=== PATIENT | female | born 1970 | race Caucasian/White ===

== ENCOUNTER 2019-12-23 09:46 | Outpatient (REF) | payer BC, SELFPAY ==
--- NOTE | 2019-12-23 09:48 | XR_ITS ---
EXAMINATION: XR ANKLE, LEFT CLINICAL INFORMATION: Ankle fracture COMPARISON: Previous x-rays most recent 11/14/2019 TECHNIQUE: AP, lateral, and mortise views of the left ankle. FINDINGS: There is an oblique fracture of the distal fibular shaft. There is a 2 mm lateral displacement of the lateral malleolus with respect to the proximal shaft. Fracture line is still seen. No bony callus formation is seen. There may be widening of the medial ankle mortise. There are degenerative changes at the talar navicular joint. There is an ankle joint effusion. XR/XR ankle LT min 3V IMPRESSION: No change in the minimally displaced distal fibular shaft/lateral malleolar fracture. Question widening of the medial ankle mortise. Ankle joint effusion.
== END 2019-12-23 09:47 | disposition home or self-care (01) ==
LOC: HO.HOSX 09:46
PROVIDERS: PCP Nurse Practitioner Family; Referring Provider Nurse Practitioner Family; Visit Provider Orthopaedic Surgery
DX: S82.62XD Displaced fracture of lateral malleolus of left fibula, subsequent encounter for closed fracture with routine healing (principal); Z79.899 Other long term (current) drug therapy
CPT/HCPCS: 73610; J1100

== ENCOUNTER 2020-01-09 12:24 | Outpatient (REF) | payer BC, SELFPAY ==
[2020-01-09 15:17] LABS: Influenza A PCR NEGATIVE (Negative); Influenza B PCR NEGATIVE (Negative); Resp Syncy Virus RNA Qual PCR NEGATIVE (Negative); SARS COV2 PCR INHOUSE NEGATIVE (Negative)
== END 2020-01-09 12:25 | disposition home or self-care (01) ==
LOC: HO.LAB 12:24
PROVIDERS: Visit Provider Nurse Practitioner Family
DX: R05 Cough (principal); J02.9 Acute pharyngitis, unspecified
CPT/HCPCS: 0241U; 87071; 87880

== ENCOUNTER 2022-05-04 10:23 | Outpatient (REF) | payer BC, SELFPAY ==
--- NOTE | ~2022-05-04 | XR_ITS ---
EXAMINATION: XR ANKLE, LEFT CLINICAL INFORMATION: Sprain. COMPARISON: Left ankle 12/23/2019 TECHNIQUE: AP, lateral, and mortise views of the left ankle. FINDINGS: There is a left malleolar fracture stabilized with metallic plate and screws in satisfactory alignment no hardware loosening seen. There is no new fracture. No soft tissue swelling. Ankle mortise and subtalar joints are normal. XR/XR ankle LT min 3V IMPRESSION: Healing left malleolar fracture with metallic plate and screws in satisfactory alignment. No hardware loosening seen.
== END 2022-05-04 10:24 | disposition home or self-care (01) ==
LOC: HO.HMGCX 10:23
PROVIDERS: Visit Provider Internal Medicine
DX: S93.402A Sprain of unspecified ligament of left ankle, initial encounter (principal)
CPT/HCPCS: 73610

== ENCOUNTER 2022-09-01 11:36 | Outpatient (AMB) | payer BC, SELFPAY ==
--- NOTE | 2022-09-01 13:11 | AM.OFFWIN_ITS ---
Intake Vital Signs 09/01/22 13:12 09/01/22 13:31 09/01/22 13:36 Height 5 ft 8 in BP 120/70 Blood Pressure Location Lt brachial Position Sitting Pulse 70 Pulse Source Pulse Oximeter Temp 96.5 F L Temp Source Temporal Artery Scan Pulse Oximetry (%) 88 L 90 L 93 Oxygen Delivery Method Room Air Room Air Room Air Intake Visit Reasons: EP fell on lt side,rib pain Intake Note: Pt is here c/o left rib pain. Pt states she fell after mowing her lawn yesterday afternoon. Patient Tobacco Use Status: Current everyday Tobacco user Allergies No Known Allergies Allergy (Verified 09/01/22 13:12) Do you need a note to return to daycare/school/sports/work: No HPI HPI Comments History of Present Illness Details 1413 this is a 51-year-old female current daily smoker, history of pneumothorax presenting to the clinic for sick visit, patient reports that yesterday after she finished mowing her lawn she tripped on a dog toy, falling, landing on her left side, since then has been having left-sided rib pain. Pain is worse with breathing, laughing, movement better at rest. Patient reports she feels like she can not take a deep breath. She tells me when she fell she did not hit her head, no loss of consciousness, not on blood thinners. Denies any other injuries to head, neck, chest, abdomen and pelvis. Patient reports pain is so severe she is unable to sleep and is having difficulties with ambulation. Upon history taking patient speaking in short sentences, appears to be having difficulties with breathing. She does endorse shortness of breath worse with movement better at rest.Patient denies chest pain, nausea, vomiting, abdominal pain, headache, vision changes, dizziness and weakness. Physical examination significant for patient's vital signs with hypoxia, tachypnea, patient in mild respiratory distress. Patient appears uncomfortable. There is tenderness to palpation to the lateral aspect of left 4th through 7th ribs. Mid axillary line. Normal right ribs. No overlying skin changes. No signs of flail chest. Breath sounds diminished bilaterally However present. Concerns that patient may have multiple rib fractures, no signs of flail chest pneumothorax on my exam. Hypoxia likely secondary to poor work of breathing secondary to pain, patient evidently shallow breathing. I explained to patient that due to her oxygen saturation and mechanism of injury should go to the emergency department for further evaluation and treatment, I explained to her we can order an x-ray here however a lot of rib fractures can be missed on x-ray and the best test to obtain accurate result is a CT scan. I also explained to her that I am concerned that she may have a pneumothorax, she tells me she has had 1 before and this does not feel like a. She tells me she feels fine to go home the only thing that is bothering her is pain, she says the shortness of breath this tolerable. I did go over potential risks of leaving and not taking an ambulance or going straight to the emergency department, including , respiratory distress, additional pain and or suffering, permanent disability or disfigurement, patient verbalizes understanding and states she is willing to take wrist. She is unwilling to take an ambulance, unwilling to go to the emergency department at this time. She tells me she will go home and speak to her in june be she will go later. Patient alert and oriented x4 and she does verbalize all the risks of leaving including . Nurse Shagufta at the bedside to explain this to patient as well, patient is saturating 94% when leaving. She did improved to 98% on 2 L however patient does not use oxygen at home. [place] that she will not go at this time. At time that patient left the office she was saturating 94% on room air, appeared uncomfortable Toradol was given for pain. Patient states she will go home and speak to . I explained her she should call 911 immediately or report to an emergency department at this time. I did have her sign a form against medical advice for leaving. To note this case was discussed with my attending Dr.Viswanatha WILSON who reccomends patient to go to ED for evaluation however since patient is refusing agrees with having patient leave AMA with strict emphasis on potential risks including . [facility] Medical History Collapsed lung (~2017) Effusion, right knee Fracture of left ankle, lateral malleolus Surgical History History of breast biopsy (~2006) Family History Father No problems noted. Mother No problems noted. 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 Review of Systems Const Details: Constitutional : No Weight loss, No Fever, No Chills, No Fatigue, No Malaise ENT/Mouth : No sore throat, No Rhinorrhea Eyes: No Eye Pain, No Swelling, No Redness Cardiovascular : No Chest Pain, + SOB, No Dyspnea on Exertion, No Orthopnea, No Edema, No Palpitations Respiratory : No Cough, No Sputum, No Wheezing Gastrointestinal : No Nausea, No Vomiting, No Diarrhea, No Constipation, No abdominal Pain, No Hematochezia, No Melena Genitourinary : No Dysuria, No Urinary Frequency, No Hematuria, Musculoskeletal : No joint pain, No Myalgias, No Joint Swelling, + rib pain Skin : No Skin Lesions, No rash Neuro : No Weakness, No Numbness, No Dizziness, No Headache Psych : No Anxiety/Panic, No Depression All other systems reviewed and are negative All systems reviewed & are unremarkable except as noted in HPI and below Physical Exam Vital Signs: Last Vital Signs Temp 96.5 F L 09/01/22 13:12 Pulse 70 09/01/22 13:12 BP 120/70 09/01/22 13:12 Pulse Ox 93 09/01/22 13:36 Oxygen Delivery Method Room Air 09/01/22 13:36 vss Appearance: Alert.? Oriented X3.? No acute distress.? Head: Normocephalic, atraumatic, no step-offs or deformities Eyes: Pupils equal, round and reactive to light.? ENT: Pharynx normal.? Neck: Normal inspection.? Neck supple.? CVS: Normal heart rate and rhythm.? Pulses normal.? Respiratory: No respiratory distress.? + There is tenderness to palpation to the lateral aspect of left 4th through 7th ribs. Mid axillary line. Normal right ribs. No overlying skin changes. No signs of flail chest. Breath sounds diminished bilaterally However present. Abdomen: Soft and nontender.? Skin: Skin warm and dry.? Normal skin color.? Normal skin turgor.? Extremities: No lower extremity edema.? No calf ttp. 5/5 strength to bilateral upper and lower extremities Back: No midline tenderness, no C-spine tenderness, full range of motion, no CVA tenderness bilaterally Neuro: Oriented X 3.? No motor deficit.? No sensory deficit. CN 2-12 intact Office Meds ketorolac Performing Provider: KAY Smith Administered by: Shagufta Diana RN on 09/01/22 14:04 Dose Route Admin Location Lot Number Expiration Date [employer] Super[employer] 30 mg IM Left gluteus [id number] 05/20/23 38620-453-02 [employer] Comments: Instructed pt to refrain from OTC NSAIDs 8-10 hours after receiving the injection and while on prescription Torodal. (Inadvertently took a 60mg vial which will match the lot# and administered 1ml after drawing up med.) Assessment & Plan Assessment & Plan (1) Shortness of breath: Code(s): R06.02 - Shortness of breath (2) Rib pain on left side: Code(s): R07.81 - Pleurodynia (3) Left against medical advice: Code(s): Z53.29 - Procedure and treatment not carried out because of patient's decision for other reasons (4) Fall: Code(s): W19.XXXA - Unspecified fall, initial encounter Plan Patient leaving against medical advice, AMA form was signed by patient and nurse. Nurse also tried to convince patient to go to the hospital for treatment patient refusing. Advised her to call 911 with new or worsening symptoms or report to an emergency department at this time. Patient alert and oriented x4 at time of leaving. 94% on room air. Orders: Orders AMB Ketorolac Injection Today R07.81 - Pleurodynia Coding Level of Care Code Est Pt Level 3 (22030) Diagnoses Shortness of breath R06.02 Rib pain on left side R07.81 Left against medical advice Z53.29 Fall W19.XXXA
[2022-09-01 13:12] VITALS: BP 120/70; PULSE 70; TEMP 35.8; O2SAT 88
[2022-09-01 13:31] VITALS: O2SAT 90
[2022-09-01 13:36] VITALS: O2SAT 93
== END 2022-09-01 16:36 | disposition home or self-care (01) ==
PROVIDERS: Visit Provider Physician Assistant
DX: R06.02 Shortness of breath (principal); R07.81 Pleurodynia; Z53.29 Procedure and treatment not carried out because of patient's decision for other reasons; W19.XXXA Unspecified fall, initial encounter
CPT/HCPCS: 96372; 99213; J1885

== ENCOUNTER 2022-09-01 13:18 | Outpatient (REF) | payer BC, SELFPAY ==
--- NOTE | ~2022-09-01 | XR_ITS ---
EXAMINATION: XR RIBS, RIGHT, PA CHEST CLINICAL INFORMATION: Rib pain. COMPARISON: None available. TECHNIQUE: 3 views of the right ribs were obtained along with a PA view of the chest. A skin marker overlies the inferior left ribs. FINDINGS: Lungs are clear. No consolidation, pneumothorax, or pleural effusion. The cardiomediastinal silhouette and pulmonary vasculature are normal. Osseous structures are unremarkable. Ribs are intact. No fractures are identified. XR/XR ribs LT min 3V w CXR1V IMPRESSION: Unremarkable examination.
== END 2022-09-01 13:19 | disposition home or self-care (01) ==
LOC: HO.HMGCX 13:18
PROVIDERS: Visit Provider Physician Assistant
DX: R06.02 Shortness of breath (principal); R07.81 Pleurodynia
CPT/HCPCS: 71101

== ENCOUNTER 2022-09-05 11:54 | Emergency (ER) | payer BC, SELFPAY | END 2022-09-05 13:36 | disposition left against medical advice (07) | PROVIDERS: Emergency Provider Emergency Medicine | DX: R06.00 Dyspnea, unspecified (principal); Z91.81 History of falling ==

== ENCOUNTER 2022-10-04 10:27 | Outpatient (AMB) | payer BC, SELFPAY ==
--- NOTE | 2022-10-04 10:29 | AM.OFFWIN_ITS ---
Intake Vital Signs 10/04/22 10:31 Weight 153 lb BP 130/90 H Blood Pressure Location Lt brachial Position Sitting Pulse 91 Pulse Source Pulse Oximeter Temp 98.3 F Temp Source Oral Pulse Oximetry (%) 96 Oxygen Delivery Method Room Air Intake Visit Reasons: EP, Vomiting,Nausea, Cold sweats Intake Note: Patient here because she hasn't been able to tolerate any food, nausea,vomiting and cold sweats which all started yesterday. Patient Tobacco Use Status: Current everyday Tobacco user Allergies No Known Allergies Allergy (Verified 10/05/22 18:32) Medication List - Last Reconciled 10/05/22 by Taqueria Morales MD albuterol sulfate 90 mcg/actuation 2 puffs inhalation Q4-6H PRN albuterol sulfate 1.25 mg (3 mL) inhalation QID PRN albuterol sulfate 90 mcg/actuation inhalation bupropion HCl mg PO bupropion HCl mg PO bupropion HCl (Wellbutrin SR) PO ibuprofen mg PO leg brace (Ankle Brace) STABILIZING PRO ANKLE, BLK, L leg brace STABILIZING PRO ANKLE, BLK, L S82.62XA lorazepam 0.5 mg PO DAILY PRN pantoprazole 40 mg PO DAILY sertraline 100 mg PO DAILY Do you need a note to return to daycare/school/sports/work: Yes HPI EP, Vomiting,Nausea, Cold sweats HPI Details 51-year-old female presents to the office for a sick visit. Patient is not been feeling well for a few days. She is complaining of nausea, vomiting and generally feeling tired. No family members sick. No recent travel. [facility] Medical History Collapsed lung (~2018) Effusion, right knee Fracture of left ankle, lateral malleolus Surgical History History of breast biopsy (~2006) Family History Father No problems noted. Mother No problems noted. 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 Physical Exam Vital Signs: Last Vital Signs Temp 98.3 F 10/04/22 10:31 Pulse 91 10/04/22 10:31 BP 130/90 H 10/04/22 10:31 Pulse Ox 96 10/04/22 10:31 Oxygen Delivery Method Room Air 10/04/22 10:31 Const General: cooperative and healthy appearing Nutritional Appearance: well nourished Orientation/consciousness: patient oriented x3 Limitations: no limitations HEENT Head: Yes normal to inspection Eyes General: appearance normal, both eyes and all related structures Neck Neck: Yes normal visual inspection Chest Chest palpation & inspection: normal palpation of entire chest wall Resp Effort & Inspection: normal respiratory effort Neuro General: patient oriented x3 Assessment & Plan Assessment & Plan (1) Nausea: Code(s): R11.0 - Nausea Plan: Self-limiting illness. Symptomatic relief with PPI. If symptoms not better to follow-up here. Medications: New pantoprazole 40 mg PO DAILY 14 tabs 0RF Coding Level of Care Code Est Pt Level 3 (67449) Diagnoses Nausea R11.0
[2022-10-04 10:31] VITALS: BP 130/90; PULSE 91; TEMP 36.8; O2SAT 96
== END 2022-10-04 11:02 | disposition home or self-care (01) ==
LOC: HO.HMGWI 10:27
DX: R11.0 Nausea (principal)
CPT/HCPCS: 99213

== ENCOUNTER 2023-02-01 08:47 | Outpatient (AMB) | payer BC, SELFPAY ==
[2023-02-01 09:56] VITALS: BP 140/90; PULSE 93; TEMP 36.6; O2SAT 99; BMI 23.6
--- NOTE | 2023-02-01 09:56 | MHC.OFFWIV ---
Intake Vital Signs 02/01/23 09:56 Height 5 ft 8 in Weight 155 lb BMI 23.6 BP 140/90 H Blood Pressure Location Lt brachial Position Sitting Pulse 93 Pulse Source Pulse Oximeter Temp 97.8 F Temp Source Temporal Artery Scan Pulse Oximetry (%) 99 Oxygen Delivery Method Room Air Intake Visit Reasons: EP, pink eye both eye ([phone]) Intake Note: pt is here today for pink eye started monday Patient Tobacco Use Status: Current everyday Tobacco user Allergies No Known Allergies Allergy (Verified 02/01/23 10:05) Do you need a note to return to daycare/school/sports/work: Yes HPI HPI Comments History of Present Illness Details Bilateral eye redness Ongoing 1.5 days She wears glasses and contacts Stopped contacts x 2 days No trauma to eys She said onset R side and a little to left No fever or chills Eyes feel swollen Warm compression without relief Running; she said + tears/goop + crusting around eyes Denies other symptoms + sensitive No infections PFSH Medical History Collapsed lung (~2017) Effusion, right knee Fracture of left ankle, lateral malleolus Surgical History History of breast biopsy (~2006) Family History Father No problems noted. Mother No problems noted. 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 Review of Systems Const Denies body aches, Denies chills, Denies fever(s) and Denies headache(s) Eyes Denies blind spots, Denies blurry vision, Denies change in vision, Denies diplopia, Reports eye discharge and Reports itchy eyes ENT Denies headache(s), Denies nasal discharge, Denies sinus pain and Denies throat swelling Resp Denies cough Neuro Denies headache(s) Aller/Immun Reports itchy eyes and Denies throat swelling Physical Exam Vital Signs: Last Vital Signs Temp 97.8 F 02/01/23 09:56 Pulse 93 12/13/23 09:56 BP 140/90 H 02/01/23 09:56 Pulse Ox 99 02/01/23 09:56 Oxygen Delivery Method Room Air 02/01/23 09:56 BMI result Body Mass Index 23.6 General: Non-toxic, NAD. Speaking full sentences. Skin: Warm dry throughout Eye: EOMI. PERRL. + conjunctival erythema R>L. No drainage noted. No stye or FB noted with lid eversion. No periorbital or facial edema HENT: Airway patent. Uvula midline. No pharyngeal erythema or edema. 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 Bilateral canals clear. TM non-erythematous, non-bulging. No TM perforation or hemotympanum noted. Respiratory: CTA bilaterally. No wheezes, rales or rhonchi Cardiac: RRR. No murmur MSK: Full ROM extremities. Neurology: A/O. No aphasia or facial droop. Gait without abnormality Psych: Good mood and affect Assessment & Plan Assessment & Plan (1) Conjunctivitis: Code(s): H10.9 - Unspecified conjunctivitis Qualifiers: Conjunctivitis type: acute Acute conjunctivitis type: bacterial Laterality: bilateral Qualified Code(s): H10.33 - Unspecified acute conjunctivitis, bilateral Plan Patient seen and evaluated. No contacts z 1 week Avoid rubbing eyes; + wash hands F/U with PCP New make up and contacts Patient gave verbal understanding and had no additional questions or concerns at time of discharge All questions answered Medications: New ofloxacin 0.3% 1 drp ophthalmic (eye) QID 7 days 10 mL 0RF H10.9 - Unspecified conjunctivitis Coding Level of Care Code Est Pt Level 3 (97446) Diagnoses Acute bacterial conjunctivitis of both eyes H10.33 Conjunctivitis type: acute Acute conjunctivitis type: bacterial Laterality: bilateral
== END 2023-02-01 10:29 | disposition home or self-care (01) ==
PROVIDERS: Visit Provider Physician Assistant
DX: H10.33 Unspecified acute conjunctivitis, bilateral (principal)
CPT/HCPCS: 99213

== ENCOUNTER 2023-03-21 10:52 | Outpatient (AMB) | payer BC, SELFPAY ==
[2023-03-21 10:58] VITALS: BMI 23.6
--- NOTE | 2023-03-21 10:58 | MHC.OFFVIS ---
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 VV are burning and tingling. Right slightly worse than Left LE. Works at the [employer] and walks around the [place] daily for work. Accompanied by: Self / Same As Patient Allergies No Known Allergies Allergy (Verified 03/21/23 11:04) HPI CALL CENTER RECRUITER Self Referral , VV HPI Details Very pleasant 52-year-old female presents for evaluation regarding varicose veins. She reports pain and cramping in both legs. 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 She smokes approximately a half a pack per day she is nondiabetic. She reports that the discomfort is right more so than left. She notices it most when she climbs a flight of stairs. She now presents to us for vascular evaluation. Of note she does not have established primary care. [facility] Medical History Effusion, right knee Fracture of left ankle, lateral malleolus Collapsed lung (~2017) Surgical History History of breast biopsy (~2006) Family History Father No problems noted. Mother No problems noted. 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 Review of Systems Const Reports as per HPI ENT Reports no additional complaints Card Denies chest pain, Denies chest pain at rest and Denies chest pain with activity Resp Denies chest congestion and Denies cough GI Reports no additional complaints Musc Details: pain over varicosities, aching of lower extremities, swelling, cramping, heaviness and tiredness, itching Denies abnormal gait Skin/Breast Reports pruritus and Denies wounds Neuro Reports no additional complaints and Denies abnormal gait Psych Denies no additional complaints Physical Exam Vital Signs: BMI result Body Mass Index 23.6 Const General: cooperative, healthy appearing and comfortable Orientation/consciousness: oriented to person, oriented to place and oriented to time Neck Carotids: no bruits Chest Chest palpation & inspection: normal inspection of the chest and normal palpation of entire chest wall Resp Effort & Inspection: normal respiratory effort and able to speak in complete sentences Cardio Other: Bilateral DP signals Rate: regular rate Heart sounds: S1 normal heart sound present and S2 normal heart sound present Peripheral pulses: Peripheral pulses 2+ throughout GI Inspection: Yes normal to inspection Skin Other: +2 edema, large rope-like varicosities greater than 4 mm posterior calf right greater than left CEAP Classification C4 - skin color changes Ep - Etiology Primary As - superficial veins P - reflux General skin exam: dry skin Neuro General: oriented to person, oriented to place and oriented to time Extrem Right lower extremity: full ROM, normal capillary refill and edema Left lower extremity: full ROM, normal capillary refill and edema Psych Mental Status: mental status grossly normal Assessment & Plan Assessment & Plan (1) PAD (peripheral artery disease): Code(s): I73.9 - Peripheral vascular disease, unspecified Plan: In short patient has what I believe to be an element of peripheral vascular disease. She does have a longstanding history of smoking and reports calf pain. I have taken the liberty of ordering noninvasive arterial testing to better evaluate this. She will follow up with us after testing. Thank you for allowing us to assist in her care. If there are any questions or concerns please do not hesitate to contact us (2) Varicose veins of right lower extremity with inflammation: Code(s): I83.11 - Varicose veins of right lower extremity with inflammation Plan: She does have large bilateral calf varicosities. They have been a source of pain and discomfort for her. We have discussed routine conservative measures including compression elevation and exercise. I have taken the liberty of ordering venous insufficiency testing to rule that out. She will follow up with us after testing. Thank you for allowing us to assist in her care. Orders: Orders US venous insuf bilat 1 Week I83.11 - Varicose veins of right lower extremity with inflammation US arterial duplex LE BI 1 Week I73.9 - Peripheral vascular disease, unspecified Coding Level of Care Code Est Pt Level 4 (13697) Diagnoses PAD (peripheral artery disease) I73.9 Varicose veins of right lower extremity with inflammation I83.11
== END 2023-03-21 11:32 | disposition home or self-care (01) ==
PROVIDERS: Visit Provider Surgery Vascular Surgery
DX: I73.9 Peripheral vascular disease, unspecified (principal); I83.11 Varicose veins of right lower extremity with inflammation
CPT/HCPCS: 99213

== ENCOUNTER → 2023-03-21 10:52 | Outpatient (BNVA) | payer BC, SELFPAY | PROVIDERS: Visit Provider Surgery Vascular Surgery ==

== ENCOUNTER 2023-03-27 12:50 | Outpatient (AMB) | payer BC, SELFPAY ==
--- NOTE | 2023-03-27 12:51 | MHC.PC.OV ---
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 Transferring care from Dr Dwain Hyman ([facility]). Medical records have been requested and have not received. 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 Her previous primary care was in [facility]. . Patient gives medical history significant for depression and anxiety. She is on multiple medications but has not been taking it for the past few months. She just found a therapist and a psychiatrist today. Patient takes Wellbutrin and sertraline for the same. She would like a refill on the Wellbutrin. Patient also has a ruptured cervical disc and she takes ibuprofen for pain at times. She would like a refill on her albuterol medication. Smokes half pack a day. Admits to drinking alcohol 1-2 glasses of wine a day. [facility] Medical History (Updated 03/27/23 @ 13:39 by Taqueria Morales MD) Major depression in partial remission Tobacco use disorder Varicose veins of right lower extremity with inflammation Effusion, right knee Fracture of left ankle, lateral malleolus Collapsed lung (~2017) Surgical History History of arthroplasty of left ankle History of knee surgery History of breast biopsy (~2006) Family History Father No problems noted. Mother No problems noted. 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 1. Little interest or pleasure in doing things: not at all 2. Feeling down, depressed, or hopeless: more than half the days 3. Trouble falling or staying asleep, or sleeping too much: more than half the days 4. Feeling tired or having little energy: more than half the days 5. Poor appetite or overeating: nearly every day 6. Feeling bad about yourself - or that you are a failure or have let yourself or your family down: not at all 7. Trouble concentrating on things, such as reading the newspaper or watching television: not at all 8. Moving or speaking so slowly that other people could have noticed. Or the opposite - being so fidgety or restless that you have been moving around a lot more than usual: not at all 9. Thoughts that you would be better off or of hurting yourself in some way: not at all Total score: 9 Source: Developed by Drs. Sony Foy, Serena Ramsay, Josue Leon and colleagues, with an educational juan ramon from [employer]. Thrive Questionnaire Date Thrive assessed: 03/27/23 I am a: Patient What is your living situation today?: I have a steady place to live Within the past 12 months, did the food you bought not last and you didn't have the money to get more?: Never true Within the past 12 months, did you worry whether your food would run out before you got money to buy more?: Never true Do you have trouble paying for medicines?: No Do you have trouble getting transportation to medical appointments?: No Do you have trouble paying your heating and electricity bill?: No Do you have trouble taking care of your child, family member or friend?: No Do you have trouble with day-to-day activities such as bathing, preparing meals, shopping, managing finances, etc.?: No Are you currently unemployed and looking for a job?: No Are you interested in more education?: No Currently or been in a relationship where the following occur: no concerns reported THRIVE Score: 0 AUDIT C Alcohol Use Questionnaire (AUDIT-C) 1. How often do you have a drink containing alcohol?: 4 or more times a week 2. How many drinks containing alcohol do you have on a typical day when you are drinking?: 1 or 2 Total Score: 4 ROBIN-7 AMB Questionnaire ROBIN-7 Date ROBIN - 7 assessed: 03/27/23 Feeling nervous, anxious, or on edge: 1 = Several days Not being able to stop or control worryin = Not at all Worrying too much about different things: 0 = Not at all Trouble relaxin = Several days Being so restless that it is hard to sit still: 3 = Nearly every day Becoming easily annoyed or irritable: 3 = Nearly every day Feeling afraid as if something awful might happen: 0 = Not at all Total ROBIN-7 score (0-4 normal; 5-9 mild; 10-14 moderate; 15-21 severe): 8 Source: Developed by Drs. Sony Foy, Serena Ramsay, Josue Leon and colleagues, with an educational juan ramon from [employer]. Physical exam (Primary Care) Vital Signs: Last Vital Signs Pulse 101 H 03/27/23 12:53 BP 130/80 03/27/23 12:53 Pulse Ox 98 03/27/23 12:53 Oxygen Delivery Method Room Air 03/27/23 12:53 BMI result Body Mass Index 22.9 Tobacco/Smoking Status: Tobacco use Status Tobacco use date assessed 03/27/23 03/27/23 12:57 Patient Tobacco Use Status Current everyday Tobacco 03/27/23 13:06 e-Cigarette/Vaping Use Never Used 03/27/23 12:57 PHQ-9: PHQ-9 Score PHQ-9: Total score 9 03/27/23 13:10 Thrive Assessment: Date of Thrive Assessment Date Thrive assessed 03/27/23 03/27/23 12:57 Currently or been in a relationship where the following occur: no concerns reported Const General: cooperative and healthy appearing Nutritional Appearance: well nourished Orientation/consciousness: patient oriented x3 Limitations: no limitations HENMT Head: Yes normal to inspection Eyes General: appearance normal, both eyes and all related structures Neck Neck: Yes normal visual inspection Chest Chest palpation & inspection: normal palpation of entire chest wall Resp Effort & Inspection: normal respiratory effort Neuro General: patient oriented x3 Assessment and Plan Assessment & Plan (1) PAD (peripheral artery disease): Code(s): I73.9 - Peripheral vascular disease, unspecified Plan: Patient sees Dr. Mas. Encouraged her to keep the appointment. (2) Varicose veins of right lower extremity with inflammation: Code(s): I83.11 - Varicose veins of right lower extremity with inflammation Plan: As above. (3) Major depression in partial remission: Code(s): F32.4 - Major depressive disorder, single episode, in partial remission Plan: Her symptoms are controlled by Wellbutrin and sertraline. She takes 300 mg a day of Wellbutrin. This was prescribed. Patient also has a psychiatrist and therapist. (4) Tobacco use disorder: Code(s): F17.200 - Nicotine dependence, unspecified, uncomplicated Plan: Counseling to quit smoking done. Orders: Orders Basic Metabolic Panel Today I73.9 - Peripheral vascular disease, unspecified Complete Blood Count no Diff Today I73.9 - Peripheral vascular disease, unspecified UA and rflx microscopic Today I73.9 - Peripheral vascular disease, unspecified Thyroid Stimulating Hormone Today I73.9 - Peripheral vascular disease, unspecified Lipid Panel Today I73.9 - Peripheral vascular disease, unspecified Liver Panel Today I73.9 - Peripheral vascular disease, unspecified Medications: New varicella-zoster [id number] (PF) 50 mcg/0.5 mL (Shingrix (PF)) 0.5 mL IM ONCE 1 ea 0RF Changed From bupropion HCl PO To bupropion HCl 300 mg PO DAILY 90 tabs 1RF Discontinued albuterol sulfate Discontinued Reason: Patient no longer taking 1.25 mg (3 mL) inhalation QID PRN 75 mL 0RF shortness of breath or wheezing R05 - Cough Coding Level of Care Code Est Pt Level 4 (47966) Diagnoses PAD (peripheral artery disease) I73.9 Varicose veins of right lower extremity with inflammation I83.11 Major depression in partial remission F32.4 Tobacco use disorder F17.200
[2023-03-27 12:53] VITALS: BP 130/80; PULSE 101; O2SAT 98; BMI 22.9
== END 2023-03-27 13:29 | disposition home or self-care (01) ==
PROVIDERS: Visit Provider Internal Medicine
DX: I73.9 Peripheral vascular disease, unspecified (principal); I83.11 Varicose veins of right lower extremity with inflammation; F32.4 Major depressive disorder, single episode, in partial remission; F17.200 Nicotine dependence, unspecified, uncomplicated
CPT/HCPCS: 99214

== ENCOUNTER 2023-04-04 08:06 | Outpatient (REF) | payer BC, SELFPAY ==
--- NOTE | ~2023-04-04 | US_ITS ---
EXAMINATION: US VENOUS REFLUX/INSUFFICIENCY CLINICAL INFORMATION: Varicose veins of right lower extremity of inflammation Venous reflux. COMPARISON: None. TECHNIQUE: Bilateral lower extremity venous insufficiency ultrasound was performed with velocity measurements. Color flow Doppler imaging was performed. FINDINGS: RIGHT SIDE: No evidence of DVT or venous reflux within the common femoral, mid femoral, or popliteal vein. GREATER SAPHENOUS VEIN: The right saphenofemoral junction measures 0.5cm. The reflux time is 0 ms. Proximal thigh measures 0.5cm. Reflux time is 0 ms. Mid thigh measures 0.3cm. Reflux time is 2288 ms. Above-knee measures 0.3cm. Reflux time is 0 ms. At the knee measures 0.3cm. Reflux time is 0 ms. Below the knee measures 0.2cm. Reflux time is 0 ms. Mid calf measures 0.2cm. Reflux time is 1028 ms. At the level of the ankle it measures 0.2cm. Reflux time is 0 ms. At the proximal thigh there is a 0.4 cm varicosity without significant reflux. At the level of the proximal calf there are 0.1 and 0.2 cm varicosities which do not demonstrate reflux. At the and distal calf there are 0.1 cm varicosities which do not demonstrate reflux.. SMALL SAPHENOUS VEIN: The saphenopopliteal junction measures 0.3 cm. Reflux time is 0 ms. The upper right small saphenous vein measures 0.2 cm. Reflux time is 0 ms.. The lower small saphenous vein measures 0.2cm. Reflux time is 0 ms. There are 2 bioinformatics programmer veins associated with the proximal calf and midcalf which measures 0.1 cm and do not demonstrate. At the mid to distal calf there are 2 small varicosities which measure 0.1 and 0.2 cm. These do not demonstrate reflux. LEFT SIDE: No evidence of DVT or venous reflux within the common femoral, mid femoral, or popliteal vein. GREATER SAPHENOUS VEIN: The left saphenofemoral junction measures 0.8cm. The reflux time is 0 ms. Proximal thigh measures 0.5cm. Reflux time is 0 ms. Mid thigh measures 0.2cm. Reflux time is 0 ms. Above-knee measures 0.3cm. Reflux time is 0 ms. At the knee measures 0.3cm. Reflux time is 0 ms. Below the knee measures 0.2cm. Reflux time is 2252 ms. Mid calf measures 0.2cm. Reflux time is 0 ms. At the level of the ankle it measures0.2cm. Reflux time is 0 ms. There are 2 and 3 mm varicosities associated with the proximal thigh which do not demonstrate reflux. There is a 2 mm varicosity of the proximal calf without reflux. There is a 1 mm varicosity at the distal calf which does not demonstrate reflux.. SMALL SAPHENOUS VEIN: The saphenopopliteal junction measures 0.2 cm. Reflux time is 0 ms. The upper left small saphenous vein measures 0.2 cm. Reflux time is 0 ms. The lower small saphenous vein measures 0.3cm. Reflux time is 0 ms. There is a 0.2 cm varicosity at the mid calf which does not demonstrate reflux. Distal calf perforators are present but measure 0.1 cm and do not demonstrate reflux. US/US venous insuf bilat IMPRESSION: On the right there is segmental reflux within the mid thigh and midcalf segments of the great saphenous vein. A few varicosities are seen which do not demonstrate reflux. On the left there is segmental reflux within the below the knee segment of the great saphenous vein. There are a few varicosities visualized which do not demonstrate reflux.
== END 2023-04-04 08:07 | disposition home or self-care (01) ==
LOC: HO.US 08:06
PROVIDERS: PCP Internal Medicine; Visit Provider Surgery Vascular Surgery
DX: I83.11 Varicose veins of right lower extremity with inflammation (principal)
CPT/HCPCS: 93970

== ENCOUNTER 2023-04-13 14:31 | Outpatient (REF) | payer BC, SELFPAY ==
--- NOTE | ~2023-04-13 | US_ITS ---
EXAMINATION: Noninvasive assessment of the bilateral lower extremities with ARTERIAL DUPLEX and ANKLE BRACHIAL INDICES (ABIs). CLINICAL INFORMATION: Peripheral vascular disease TECHNIQUE: Duplex Doppler techniques with waveform analysis and measurement of velocities in the bilateral common femoral, profunda femoris, superficial femoral, popliteal and tibial arteries were performed. Additionally, ankle pulse volume recordings, ankle pressure measurements and ankle brachial indices were obtained of the lower extremity arterial system bilaterally. The study was performed only at rest. COMPARISON: None FINDINGS: DIRECT DUPLEX DOPPLER FINDINGS: RIGHT LEG: Common femoral artery: 91.3 cm/s, phasicity: Triphasic Profunda femoris artery: 71.0 cm/s, phasicity: Triphasic Superficial femoral artery (proximal): 80.0 cm/s, phasicity: Triphasic Superficial femoral artery (mid): 85.7 cm/s, phasicity: Triphasic Superficial femoral artery (distal): 60.8 cm/s, phasicity: Triphasic Popliteal artery: 48.3 cm/s, phasicity: Triphasic Posterior tibial artery: 69.6 cm/s, phasicity: Triphasic Peroneal artery: 58.7 cm/s, phasicity: Triphasic Anterior tibial artery: 83.0 cm/s, phasicity: Triphasic Dorsalis pedis artery: 67.8 cm/s, phasicity:Triphasic LEFT LEG: Common femoral artery: 111 cm/s, phasicity: Triphasic Profunda femoris artery: 67.5 cm/s, phasicity: Triphasic Superficial femoral artery (proximal): 62.1 cm/s, phasicity: Triphasic Superficial femoral artery (mid): 75.7 cm/s, phasicity: Triphasic Superficial femoral artery (distal): 60.0 cm/s, phasicity: Triphasic Popliteal artery: 51.0 cm/s, phasicity: Triphasic Posterior tibial artery: 80.9 cm/s, phasicity: Triphasic Peroneal artery: 54.2 cm/s, phasicity: Triphasic Anterior tibial artery: 57.4 cm/s, phasicity: Triphasic Dorsalis pedis artery: 48.4 cm/s, phasicity: Biphasic ANKLE-BRACHIAL INDEX: Right: 1.26? Left: 1.18 ANKLE PRESSURES: Right: PT 187, DP 160 Left: PT?174, DP?167 ANKLE PVR WAVEFORMS: Right: Normal Left: Normal US/US arterial duplex LE BI IMPRESSION: Right leg: Normal ankle brachial index, pulse volume waveform and duplex arterial evaluation Left leg:Normal ankle brachial index, pulse volume waveform and duplex arterial evaluation VIOLETTE Reference: - >1.4 = calcified vessels - 0.9 - 1.4 = normal - no significant arterial disease - 0.7 - 0.89 = mild peripheral arterial disease - 0.51 - 0.69 = moderate peripheral arterial disease - ? 0.50 = severe peripheral arterial disease - < .30 = critical arterial disease
== END 2023-04-13 14:32 | disposition home or self-care (01) ==
LOC: HO.US 14:31
PROVIDERS: PCP Internal Medicine; Visit Provider Surgery Vascular Surgery
DX: I73.9 Peripheral vascular disease, unspecified (principal)
CPT/HCPCS: 93923; 93925

== ENCOUNTER 2023-04-18 14:33 | Outpatient (AMB) | payer BC, SELFPAY ==
[2023-04-18 14:36] VITALS: BMI 22.8
--- NOTE | 2023-04-18 14:36 | A.OFFVIS_ITS ---
Intake Vital Signs 04/18/23 14:36 Height 5 ft 7.5 in Weight 148 lb BMI 22.8 Intake Visit Reasons: follow up arterial US 04/13/2023 Intake Note: follow up ARterial US 04/13/23 & US 04/04/2023. Pt states Right LE is slightly worse than the Left LE and has burning,tingling and numbness. Works on her feet all day. Accompanied by: Self / Same As Patient Allergies No Known Allergies Allergy (Verified 04/18/23 14:42) HPI follow up arterial US 04/13/2023 HPI Details Very pleasant 52-year-old female presents for evaluation regarding varicose veins. She reports continued pain and discomfort of bilateral lower extremities. 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 She now presents for follow-up evaluation with arterial and venous insufficiency testing. Of note she has used compression with minimal relief for the last 3 months. [facility] Medical History (Updated 04/19/23 @ 10:57 by Chi Mas MD) Varicose veins of right lower extremity with inflammation Major depression in partial remission Tobacco use disorder Effusion, right knee Fracture of left ankle, lateral malleolus Collapsed lung (~2017) Surgical History History of arthroplasty of left ankle History of knee surgery History of breast biopsy (~2006) Family History Father No problems noted. Mother No problems noted. 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 Cognitive needs: No Hearing needs: No Vision needs: Yes (Glasses) Review of Systems Const Reports as per HPI ENT Reports no additional complaints Card Denies chest pain, Denies chest pain at rest and Denies chest pain with activity Resp Denies chest congestion and Denies cough GI Reports no additional complaints Musc Details: pain over varicosities, aching of lower extremities, swelling, cramping, heaviness and tiredness, itching Denies abnormal gait Skin/Breast Reports pruritus and Denies wounds Neuro Reports no additional complaints and Denies abnormal gait Psych Denies no additional complaints Physical Exam Vital Signs: BMI result Body Mass Index 22.8 Const General: cooperative, healthy appearing and comfortable Orientation/consciousness: oriented to person, oriented to place and oriented to time Neck Carotids: no bruits Chest Chest palpation & inspection: normal inspection of the chest and normal palpation of entire chest wall Resp Effort & Inspection: normal respiratory effort and able to speak in complete sentences Cardio Rate: regular rate Heart sounds: S1 normal heart sound present and S2 normal heart sound present Peripheral pulses: Peripheral pulses 2+ throughout GI Inspection: Yes normal to inspection Skin Other: +2 edema, large rope-like varicosities greater than 4 mm right calf CEAP Classification C4 - skin color changes Ep - Etiology Primary As - superficial veins P - reflux General skin exam: dry skin Neuro General: oriented to person, oriented to place and oriented to time Extrem Right lower extremity: full ROM, normal capillary refill and edema Left lower extremity: full ROM, normal capillary refill and edema Psych Mental Status: mental status grossly normal Results Reviewed Results Reviewed: Brief summary of venous insufficiency testing is as follows: right great saphenous vein: Focally positive mid thigh right small saphenous vein: negative right accessory vein: none present left great saphenous vein: negative left small saphenous vein: negative left accessory vein: none present Please note there is no evidence of any venous aneurysms or significant tortuosity Arterial testing dated 04/13/2023 demonstrates VIOLETTE on the right of 1.26 and on the left of 1.18 with normal waveforms. Assessment & Plan Assessment & Plan (1) Varicose veins of right lower extremity with inflammation: Code(s): I83.11 - Varicose veins of right lower extremity with inflammation Plan: This patient has varicose veins with inflammation. They continue to be a source of discomfort for the patient. The patient has tried conservative treatment with compression, leg elevation and exercise program for over 3 months time. They have been compliant with all treatment. This has provided minimal relief for the patient. I do not anticipate this course of treatment will alter the underlying etiology. The patient has been scheduled for lower extremity venous treatment inclusive of --- right leg microphlebectomy. Risks, benefits, and complications of this procedure has been discussed in detail with the patient including but not limited to bleeding, infection, and the development of a DVT. The patient has demonstrated a clear understanding and has consented. We will schedule the patient as soon as possible. Thank you for allowing us to participate in this patient's care. If there are any questions or concerns please do not hesitate to contact us. (2) PAD (peripheral artery disease): Code(s): I73.9 - Peripheral vascular disease, unspecified Plan: Patient has arterial testing is within normal limits. At the current time has no evidence arterial disease. We did discuss routine risk factor modification inclusive of smoking cessation. Coding Level of Care Code Est Pt Level 4 (15058) Diagnoses Varicose veins of right lower extremity with inflammation I83.11 PAD (peripheral artery disease) I73.9
== END 2023-04-18 15:00 | disposition home or self-care (01) ==
PROVIDERS: PCP Internal Medicine; Visit Provider Surgery Vascular Surgery
DX: I83.11 Varicose veins of right lower extremity with inflammation (principal); I73.9 Peripheral vascular disease, unspecified
CPT/HCPCS: 99214

== ENCOUNTER → 2023-04-18 14:33 | Outpatient (BNVA) | payer BC, SELFPAY | PROVIDERS: PCP Internal Medicine; Visit Provider Surgery Vascular Surgery ==

== ENCOUNTER 2023-05-04 13:09 | Outpatient (AMB) | payer BC, SELFPAY ==
[2023-05-04 13:12] VITALS: BP 150/90; PULSE 101; TEMP 36.8; O2SAT 98; BMI 23.1
--- NOTE | 2023-05-04 13:12 | MHC.OFFWIV ---
Intake Vital Signs 05/04/23 13:12 Height 5 ft 7.5 in Weight 150 lb BMI 23.1 BP 150/90 H Blood Pressure Location Lt brachial Position Sitting Pulse 101 H Pulse Source Pulse Oximeter Temp 98.2 F Temp Source Temporal Artery Scan Pulse Oximetry (%) 98 Oxygen Delivery Method Room Air Intake Visit Reasons: EP RT knee injury Intake Note: pt is here today for rt knee injury started 4 weeks ago Patient Tobacco Use Status: Current everyday Tobacco user Allergies No Known Allergies Allergy (Verified 05/04/23 13:13) Do you need a note to return to daycare/school/sports/work: No HPI EP RT knee injury HPI Details This is a 52 year old female patient who presents today with right anterior knee pain and swelling s/p fall onto knee about 1 month ago. Reports she was carrying groceries into her house and tripped and fell onto right knee. She had swelling/bruising following fall, and although she has improved significantly since then, she continues to have some mild tenderness at the top aspect of her knee, in addition to swelling surrounding above knee cap. Denies any fevers. Able to walk/bear weight. Has not had any evaluation or treatment for this. FORMERLY [facility], [facility] Medical History Varicose veins of right lower extremity with inflammation Major depression in partial remission Tobacco use disorder Effusion, right knee Fracture of left ankle, lateral malleolus Collapsed lung (~2017) Surgical History History of arthroplasty of left ankle History of knee surgery History of breast biopsy (~2006) Family History Father No problems noted. Mother No problems noted. 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 Cognitive needs: No Hearing needs: No Vision needs: Yes (Glasses) Review of Systems Const All systems reviewed & are unremarkable except as noted in HPI and below Physical Exam Vital Signs: Last Vital Signs Temp 98.2 F 05/04/23 13:12 Pulse 101 H 05/04/23 13:12 BP 170/100 H 05/04/23 13:12 Pulse Ox 98 05/04/23 13:12 Oxygen Delivery Method Room Air 05/04/23 13:12 BMI result Body Mass Index 23.1 Const General: cooperative, healthy appearing and no acute distress Nutritional Appearance: average body habitus Resp Effort & Inspection: normal respiratory effort Auscultation: clear to auscultation bilaterally Skin General skin exam: no rashes or lesions noted Extrem Right lower extremity: full ROM, normal capillary refill and knee Details: tenderness Location: of the patella Details: superolaterally, swelling Location: of the patella and of the distal upper leg Details: anterolaterally and normal ROM Psych Appearance: grossly normal Mental Status: mental status grossly normal Speech and movement: Normal speech and movement present Assessment & Plan Assessment & Plan (1) Right anterior knee pain: Code(s): M25.561 - Pain in right knee Plan: Mild superolateral patellar tenderness and effusion. XR obtained in the office shows Irregular appearance of the superolateral patella with prepatellar soft tissue swelling. I applied ALFREDO wrap today in the office and educated patient how to do this at home. Advised she elevate knee and apply ice in the evening. I will start her on a short course of Meloxicam. We reviewed indications, use, possible s/e of this. If she does not improve with time and these measures, she should f/u with orthopedics for additional evaluation and imaging. She will contact PCP Dr. Rivas if needed for referral. Medications: New meloxicam 15 mg PO DAILY 7 days 7 tabs 0RF M25.561 - Pain in right knee Coding Level of Care Code Est Pt Level 3 (73427) Diagnoses Right anterior knee pain M25.561
== END 2023-05-04 13:59 | disposition home or self-care (01) ==
PROVIDERS: PCP Internal Medicine; Visit Provider Nurse Practitioner Family
DX: M25.561 Pain in right knee (principal)
CPT/HCPCS: 99213

== ENCOUNTER 2023-05-04 13:30 | Outpatient (REF) | payer BC, SELFPAY ==
--- NOTE | ~2023-05-04 | XR_ITS ---
EXAMINATION: XR KNEE, RIGHT CLINICAL INFORMATION: Right knee pain. Status post fall. COMPARISON: 10/30/2019 TECHNIQUE: Four views of the right knee. FINDINGS: Alignment is anatomic. Mild lateral tibiofemoral cartilage space loss with marginal osteophytes. There is irregular appearance of the superolateral patella. Mild prepatellar soft tissue swelling. Trace suprapatellar joint effusion. XR/XR knee RT 4V IMPRESSION: Irregular appearance of the superolateral patella with prepatellar soft tissue swelling. Further cross-sectional imaging may be considered.
== END 2023-05-04 13:31 | disposition home or self-care (01) ==
LOC: HO.HMGCX 13:30
PROVIDERS: PCP Internal Medicine; Visit Provider Nurse Practitioner Family
DX: M25.561 Pain in right knee (principal)
CPT/HCPCS: 73564

== ENCOUNTER 2023-05-26 08:28 | Outpatient (AMB) | payer BC, SELFPAY ==
[2023-05-26 08:39] VITALS: BMI 23.1
--- NOTE | 2023-05-26 08:39 | MHC.OFFVIS ---
Intake Vital Signs 05/26/23 08:39 Height 5 ft 7.5 in Weight 150 lb BMI 23.1 Intake Visit Reasons: Right Microphlebectomy Accompanied by: Self / Same As Patient Allergies No Known Allergies Allergy (Verified 05/26/23 08:39) [facility] Medical History Varicose veins of right lower extremity with inflammation Major depression in partial remission Tobacco use disorder Effusion, right knee Fracture of left ankle, lateral malleolus Collapsed lung (~2017) Surgical History History of arthroplasty of left ankle History of knee surgery History of breast biopsy (~2006) Family History Father No problems noted. Mother No problems noted. 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 Varicose veins were marked in the standing position on the right leg and the patient was then placed in the prone position. The right lower extremity was prepared and draped to allow knee flexion in the sterile field. The patient had large superficial varicose veins with significant symptoms of pain. It was therefore determined to perform microphlebectomies of the clusters of varicose veins. The patient had bulging varicose veins which were previously marked in the standing position. A small stab incision was made longitudinally directly overlying the varicose vein in the calf and the varicose vein was grasped with a hemostat aided by a vein hook. It was then dissected as far proximally and distally as possible and avulsed. A total of 12 stab incisions were made and the procedure of stab phlebectomies was repeated 12 times. Hemostasis was checked and stab incision sites were closed with steri-strips and sterile dressing was given with gauze and krilex wrap followed by an shabana bandage. There were no complications and blood loss was minimal. Post-Op instructions were given and a follow-up appointment was recommended. 44045 - Phleb Veins, Extrem - up to 20 All charges added?: Procedure code (CPT) selection complete Assessment & Plan Assessment & Plan (1) Varicose veins of right lower extremity with inflammation: Comment: 05/26/2023 - right leg microphlebectomy Code(s): I83.11 - Varicose veins of right lower extremity with inflammation Plan: See op note Coding Level of Care Code Procedure Only Diagnoses Varicose veins of right lower extremity with inflammation I83.11 CPT Codes Details - Vascular 5: 36126 - Phleb Veins, Extrem - up to 20 ([id number])
== END 2023-05-26 09:35 | disposition home or self-care (01) ==
PROVIDERS: PCP Internal Medicine; Visit Provider Surgery Vascular Surgery
DX: I83.11 Varicose veins of right lower extremity with inflammation (principal)
CPT/HCPCS: 37765

== ENCOUNTER → 2023-05-26 08:28 | Outpatient (BNVA) | payer BC, SELFPAY | PROVIDERS: PCP Internal Medicine; Visit Provider Surgery Vascular Surgery | DX: I83.11 Varicose veins of right lower extremity with inflammation (principal) | CPT/HCPCS: 37765 ==

== ENCOUNTER 2023-06-01 14:17 | Outpatient (AMB) | payer BC, SELFPAY ==
--- NOTE | 2023-06-01 14:40 | MHC.PC.OV ---
Vital Signs 06/01/23 14:41 Height 5 ft 7.5 in Weight 153 lb 2 oz BMI 23.6 BP 122/72 Blood Pressure Location Rt brachial Position Sitting Pulse 89 Pulse Source Pulse Oximeter Pulse Oximetry (%) 98 Oxygen Delivery Method Room Air Intake Visit Reasons: Knee injury Intake Note: Patient is here today for right knee injury with swelling ongoing for three months Ship Carpenter Required: No Button Tufter: Not Required per policy Accompanied by: Self / Same As Patient Allergies No Known Allergies Allergy (Verified 06/03/23 17:03) Medication List - Last Reconciled 06/03/23 by Taqueria Morales MD albuterol sulfate 90 mcg/actuation 2 puffs inhalation Q4-6H 90 days bupropion HCl XL 300 mg PO DAILY ibuprofen 800 mg PO Q8H PRN meloxicam 15 mg PO DAILY meloxicam 15 mg PO DAILY 7 days sertraline 100 mg PO DAILY Tobacco use date assessed: 06/01/23 Dental Screening Dental Screen Date: 03/27/23 HPI Knee injury HPI Details 52-year-old female presents to the office for a sick visit. Patient is complaining of pain and swelling in her right knee. Initially few months ago she had injured her right knee which was slowly getting back to normal state. She re-injured the knee by following a week ago. She is now has swelling over the right knee. Using anti-inflammatories but continues to have moderate discomfort. Reports pain when she climbs up or comes down the stairs. [facility] Medical History (Updated 05/26/23 @ 09:39 by Chi Mas MD) Varicose veins of right lower extremity with inflammation Major depression in partial remission Tobacco use disorder Effusion, right knee Fracture of left ankle, lateral malleolus Collapsed lung (~2017) Surgical History (Updated 06/01/23 @ 14:55 by SHARRI White) History of vein stripping History of arthroplasty of left ankle History of knee surgery History of breast biopsy (~2006) Family History Father No problems noted. Mother No problems noted. 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 Sony Foy, Serena Ramsay, Josue Leon and colleagues, with an educational juan ramon from [employer]. Physical exam (Primary Care) Vital Signs: Last Vital Signs Pulse 89 06/01/23 14:41 BP 122/72 06/01/23 14:41 Pulse Ox 98 06/01/23 14:41 Oxygen Delivery Method Room Air 06/01/23 14:41 BMI result Body Mass Index 23.6 Tobacco/Smoking Status: Tobacco use Status Tobacco use date assessed 06/01/23 06/01/23 14:56 Patient Tobacco Use Status Current everyday Tobacco 06/01/23 14:56 Tobacco use type Cigarette 06/01/23 14:56 e-Cigarette/Vaping Use Never Used 06/01/23 14:56 Thrive Assessment: Date of Thrive Assessment Date Thrive assessed 03/27/23 06/01/23 14:56 Extrem Other: Right knee: Swelling in the suprapatellar area. Able to flex the knee and extend the knee minimal discomfort. Assessment and Plan Assessment & Plan (1) Swelling of right knee joint: Code(s): M25.461 - Effusion, right knee Plan: X-ray of the knee done at the walk-in clinic shows patellar irregularity and suprapatellar swelling. Patient was advised to use the Emiliano wrap for the knee support. Orthopedic appointment has been requested. Medications: New meloxicam 15 mg PO DAILY 14 tabs 0RF Coding Level of Care Code Est Pt Level 3 (36053) Diagnoses Swelling of right knee joint M25.461
[2023-06-01 14:41] VITALS: BP 122/72; PULSE 89; O2SAT 98; BMI 23.6
== END 2023-06-01 16:04 | disposition home or self-care (01) ==
PROVIDERS: PCP Internal Medicine; Visit Provider Internal Medicine
DX: M25.461 Effusion, right knee (principal)
CPT/HCPCS: 99213

== ENCOUNTER 2023-06-08 14:49 | Outpatient (AMB) | payer BC, SELFPAY ==
[2023-06-08 14:55] VITALS: BMI 23.6
--- NOTE | 2023-06-08 14:55 | A.OFFVIS_ITS ---
Vital Signs 06/08/23 14:55 Height 5 ft 7.5 in Weight 153 lb BMI 23.6 Intake Visit Reasons: 2 week follow up Right Micro 05/26/23 Intake Note: 2 week follow up Right Micro 05/26/23 . Pt states leg is a bit itchy, otherwise ok. Questions if her other leg needs to be done, states leg is similar but not as bad as Right LE. Accompanied by: Self / Same As Patient Allergies No Known Allergies Allergy (Verified 06/08/23 15:00) HPI HPI 2 week follow up Right Micro 05/26/23: Details: Very pleasant 52-year-old female presents for follow-up regarding venous disease. She most recently underwent right leg microphlebectomy and has been doing extremely well with that. She reports pain and discomfort have decreased significantly. She is concerned about her left lower extremity. She now presents for follow-up. [facility] Medical History Varicose 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 Mother No problems noted. 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 Cognitive needs: No Hearing needs: No Vision needs: Yes (Glasses) Review of Systems Const Reports as per HPI ENT Reports no additional complaints Card Denies chest pain, Denies chest pain at rest and Denies chest pain with activity Resp Denies chest congestion and Denies cough GI Reports no additional complaints Musc Details: pain over varicosities, aching of lower extremities, swelling, cramping, heaviness and tiredness, itching Denies abnormal gait Skin/Breast Reports pruritus and Denies wounds Neuro Reports no additional complaints and Denies abnormal gait Psych Denies no additional complaints Physical Exam Vital Signs: BMI result Body Mass Index 23.6 Const General: cooperative, healthy appearing and comfortable Orientation/consciousness: oriented to person, oriented to place and oriented to time Neck Carotids: no bruits Chest Chest palpation & inspection: normal inspection of the chest and normal palpation of entire chest wall Resp Effort & Inspection: normal respiratory effort and able to speak in complete sentences Cardio Rate: regular rate Heart sounds: S1 normal heart sound present and S2 normal heart sound present Peripheral pulses: Peripheral pulses 2+ throughout GI Inspection: Yes normal to inspection Skin Other: +2 edema, large rope-like varicosities greater than 4 mm left calf CEAP Classification C4 - skin color changes Ep - Etiology Primary As - superficial veins P - reflux General skin exam: dry skin Neuro General: oriented to person, oriented to place and oriented to time Extrem Right lower extremity: full ROM, normal capillary refill and edema Left lower extremity: full ROM, normal capillary refill and edema Psych Mental Status: mental status grossly normal Results Reviewed Results Reviewed: Brief summary of venous insufficiency testing is as follows: right great saphenous vein: negative right small saphenous vein: negative right accessory vein: none present left great saphenous vein: negative left small saphenous vein: negative left accessory vein: none present Please note there is no evidence of any venous aneurysms or significant tortuosity Assessment & Plan Assessment & Plan (1) Varicose veins of left lower extremity with inflammation: Code(s): I83.12 - Varicose veins of left lower extremity with inflammation Category: Medical Plan: This patient has varicose veins with inflammation. They continue to be a source of discomfort for the patient. The patient has tried conservative treatment with compression, leg elevation and exercise program for over 3 months time. They have been compliant with all treatment. This has provided minimal relief for the patient. I do not anticipate this course of treatment will alter the underlying etiology. The patient has been scheduled for lower extremity venous treatment inclusive of --- left leg microphlebectomy. Risks, benefits, and complications of this procedure has been discussed in detail with the patient including but not limited to bleeding, infection, and the development of a DVT. The patient has demonstrated a clear understanding and has consented. We will schedule the patient as soon as possible. Thank you for allowing us to participate in this patient's care. If there are any questions or concerns please do not hesitate to contact us.
== END 2023-06-08 15:31 | disposition home or self-care (01) ==
PROVIDERS: PCP Internal Medicine; Visit Provider Surgery Vascular Surgery
DX: I83.12 Varicose veins of left lower extremity with inflammation (principal)
CPT/HCPCS: 99214

== ENCOUNTER → 2023-06-08 14:49 | Outpatient (BNVA) | payer BC, SELFPAY | PROVIDERS: PCP Internal Medicine; Visit Provider Surgery Vascular Surgery ==

== ENCOUNTER 2023-06-13 11:35 | Outpatient (AMB) | payer BC, SELFPAY ==
--- NOTE | 2023-06-13 11:38 | A.OFFVIS_ITS ---
Vital Signs 06/13/23 11:39 Height 5 ft 7.5 in Weight 153 lb BMI 23.6 BP 148/86 H Blood Pressure Location Lt brachial Position Sitting Pulse 90 Intake Visit Reasons: Colonoscopy Screening Intake Note: New consult for 1st pre colonoscopy screening. Patient cc:occasional between diarrhea and constipation. Denies any other GI issues. 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 alternating pattern- no other concerns Appetite is good. Aside from seasonal allergies no respiratory or cardiac issues No N/V/D abdominal pain-fevr or chills PFSH Medical History (Updated 06/13/23 @ 12:10 by Allie Valdovinos PA-C) Varicose 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 Mother No problems noted. 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 Cognitive needs: No Hearing needs: No Vision needs: Yes (Glasses) Review of Systems Const All systems reviewed & are unremarkable except as noted in HPI and below Card Denies chest pain and Denies dyspnea Resp Denies dyspnea GI Denies abdominal pain and Denies hematochezia Physical Exam Vital Signs: Last Vital Signs Pulse 90 06/13/23 11:39 BP 148/86 H 06/13/23 11:39 BMI result Body Mass Index 23.6 Const General: cooperative, healthy appearing, comfortable and no acute distress Orientation/consciousness: patient oriented x3 Limitations: no limitations Eyes Sclerae: sclerae normal Resp Effort & Inspection: normal respiratory effort and able to speak in complete sentences Auscultation: clear to auscultation bilaterally, no rales, no rhonchi and no wheezes Cardio Rate: regular rate Rhythm: regular rhythm Heart sounds: S1 normal heart sound present and S2 normal heart sound present GI Palpation (GI): Soft to palpation and nontender Auscultation: normal bowel sounds Skin General skin exam: no rashes or lesions noted Neuro General: patient oriented x3 Extrem General: Yes full ROM Psych Appearance: grossly normal and well kempt Mental Status: mental status grossly normal Speech and movement: Normal speech and movement present Affect: normal affect Attitude: cooperative Thought process: Normal thought process present Thought content: Normal thought content present Insight: Good insight present (Psych) Judgement: Good judgement present (Psych) Assessment & Plan Assessment & Plan (1) Encounter for screening colonoscopy: Comment: Index screening colonoscopy no GI complaints Discussed procedure, rare risks need for escort Code(s): Z12.11 - Encounter for screening for malignant neoplasm of colon Category: Medical Plan BMI: 23.6kg/m? Index screening colonoscopy MG prep Patient Instructions: Index screening colonoscopy MG prep, reviewed literature Encouraged to call questions or concerns Coding Level of Care Code New Pt Level 3 (05683) Diagnoses Encounter for screening colonoscopy Z12.11 Time Spent (min) 25
[2023-06-13 11:39] VITALS: BP 148/86; PULSE 90; BMI 23.6
== END 2023-06-13 12:17 | disposition home or self-care (01) ==
PROVIDERS: PCP Internal Medicine; Visit Provider Physician Assistant
DX: Z01.818 Encounter for other preprocedural examination (principal); Z12.11 Encounter for screening for malignant neoplasm of colon
CPT/HCPCS: S0285

== ENCOUNTER → 2023-06-13 11:35 | Outpatient (BNVA) | payer BC, SELFPAY | PROVIDERS: PCP Internal Medicine; Visit Provider Physician Assistant ==

== ENCOUNTER 2023-06-20 14:12 | Outpatient (AMB) | payer BC, SELFPAY ==
[2023-06-20 14:15] VITALS: BMI 23.6
--- NOTE | 2023-06-20 14:15 | MHC.OFFVIS ---
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 The patient states that she underwent right knee arthroscopic surgery by another orthopedic surgeon in 2020 for a ?meniscus tear?. The patient did very well initially following that procedure. The patient states that approximately 6 months ago she re-injured her right knee when she tripped over her daughter's labrador retriever. Since that time her symptoms have gotten progressively worse in spite of continued non operative treatments. She has failed conservative treatment over the last 6 weeks. She has had injections in the past which gave her minimal relief. She has also done physical therapy which aggravated her pain. She has tried Tylenol and ibuprofen which gave her minimal relief. Most of the pain is along the medial aspect of her right knee. Visiting Housekeeper Required: No Accompanied by: Self / Same As Patient Allergies No Known Allergies Allergy (Verified 06/20/23 14:15) Medication List - Last Reconciled 06/20/23 by Ruddy Bowden MD albuterol sulfate 90 mcg/actuation 2 puffs inhalation Q4-6H 90 days bupropion HCl XL 300 mg PO DAILY ibuprofen 800 mg PO Q8H PRN sertraline 100 mg PO DAILY PFSH Medical History Varicose 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 Mother No problems noted. 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 Cognitive needs: No Hearing needs: No Vision needs: Yes (Glasses) Physical Exam Vital Signs: BMI result Body Mass Index 23.6 Const Other: Well-nourished well-developed very friendly female awake alert and oriented x3 in no acute distress Extrem Other: Bilateral lower extremity examination shows good capillary refill, no skin lesions noted, normal sensation light touch Right knee examination shows a minimal effusion, minimal crepitus with range of motion, tenderness over her medial joint line, positive Jeferson's test, no instability Results Reviewed Results Reviewed: X-rays of the patient's right knee show mild diffuse joint space narrowing, no acute bony abnormalities Assessment & Plan Assessment & Plan (1) Right knee pain: Code(s): M25.561 - Pain in right knee Category: Medical Plan Ms. Ahuja presents with progressively worsening right knee pain and mechanical symptoms most likely due to a recurrent medial meniscus tear. Thus, I will send the patient for an MRI of her right knee for further evaluation. I will see her back once the MRI is completed to discuss the findings and treatment options. She will continue with her activity modifications in the meantime. Feel free to call me at any time should questions regarding her orthopedic management arise. Thank you very much for asking me see this very friendly patient. I spent 22 minutes in reviewing the patient's records and imaging studies, seeing the patient and documenting in the medical record. Orders: Orders MR knee RT wo con Today M25.561 - Pain in right knee Coding Level of Care Code New Pt Level 2 (13854) Diagnoses Right knee pain M25.561
== END 2023-06-20 14:36 | disposition home or self-care (01) ==
PROVIDERS: PCP Internal Medicine; Visit Provider Orthopaedic Surgery
DX: M25.561 Pain in right knee (principal)
CPT/HCPCS: 99202

== ENCOUNTER → 2023-06-20 14:12 | Outpatient (BNVA) | payer BC, SELFPAY | PROVIDERS: PCP Internal Medicine; Visit Provider Orthopaedic Surgery ==

== ENCOUNTER 2023-07-07 12:50 | Outpatient (AMB) | payer BC, SELFPAY ==
[2023-07-07 14:04] VITALS: BMI 23.6
--- NOTE | 2023-07-07 14:04 | A.OFFVIS_ITS ---
Vital Signs 07/07/23 14:04 Height 5 ft 7.5 in Weight 153 lb BMI 23.6 Intake Visit Reasons: Left LE Micro Accompanied by: Self / Same As Patient Allergies No Known Allergies Allergy (Verified 07/07/23 14:05) [facility] Medical History Varicose 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 Mother No problems noted. 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 Varicose veins were marked in the standing position on the left leg and the patient was then placed in the supine position. The left lower extremity was prepared and draped to allow knee flexion in the sterile field. The patient had large superficial varicose veins with significant symptoms of pain. It was therefore determined to perform microphlebectomies of the clusters of varicose veins. The patient had bulging varicose veins which were previously marked in the standing position. A small stab incision was made longitudinally directly overlying the varicose vein in the calf and the varicose vein was grasped with a hemostat aided by a vein hook. It was then dissected as far proximally and distally as possible and avulsed. A total of 21 stab incisions were made and the procedure of stab phlebectomies was repeated 21 times. Hemostasis was checked and stab incision sites were closed with steri-strips and sterile dressing was given with gauze and krilex wrap followed by an shabana bandage. There were no complications and blood loss was minimal. Post-Op instructions were given and a follow-up appointment was recommended. 09122 - Stab Phlebectomy >20 All charges added?: Procedure code (CPT) selection complete Assessment & Plan Assessment & Plan (1) Varicose veins of left lower extremity with inflammation: Comment: 07/07/2023 - left leg microphlebectomy Code(s): I83.12 - Varicose veins of left lower extremity with inflammation Category: Medical Plan: See op note Coding Level of Care Code Procedure Only Diagnoses Varicose veins of left lower extremity with inflammation I83.12 CPT Codes Details - Vascular 6: 45767 - Stab Phlebectomy >20 ([id number])
== END 2023-07-07 14:09 | disposition home or self-care (01) ==
PROVIDERS: PCP Internal Medicine; Visit Provider Surgery Vascular Surgery
DX: I83.12 Varicose veins of left lower extremity with inflammation (principal)
CPT/HCPCS: 37766

== ENCOUNTER → 2023-07-07 12:50 | Outpatient (BNVA) | payer BC, SELFPAY | PROVIDERS: PCP Internal Medicine; Visit Provider Surgery Vascular Surgery | DX: I83.12 Varicose veins of left lower extremity with inflammation (principal) | CPT/HCPCS: 37766 ==

== ENCOUNTER 2023-07-20 15:09 | Outpatient (AMB) | payer BC, SELFPAY ==
--- NOTE | 2023-07-20 15:10 | A.OFFVIS_ITS ---
Vital Signs 07/20/23 15:13 Height 5 ft 7.4 in Weight 153 lb BMI 23.7 Intake Visit Reasons: 2 week follow up Left Micro 07/07/23 Intake Note: Follow up Left LE Micro 07/07/23, pt has had severe swelling and bruising and pain. Has had to call out of work for the past 2 days due to recurring swelling near ankle. Accompanied by: Self / Same As Patient Allergies No Known Allergies Allergy (Verified 07/20/23 15:14) HPI HPI 2 week follow up Left Micro 07/07/23: Details: Very pleasant 52-year-old female presents for follow-up status post left lower extremity microphlebectomy. She does have a little irritation at the calf ankle area but overall feels pretty well. She reports that both legs have significantly improved since she is done procedures on both legs. Now for routine follow-up. [facility] Medical History Varicose 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 Mother No problems noted. 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 Cognitive needs: No Hearing needs: No Vision needs: Yes (Glasses) Review of Systems Const All systems reviewed & are unremarkable except as noted in HPI and below Reports no additional complaints ENT Reports Normal hearing present Card Denies chest pain, Denies chest pain at rest, Denies chest pain with activity and Denies pedal edema Resp Denies cough GI Denies abdominal pain Musc Denies abnormal gait, Denies muscle cramps and Denies radiating pain into limb Skin/Breast Denies skin ulcer and Denies wounds Neuro Reports Normal hearing present and Denies abnormal gait Psych Reports no additional complaints Physical Exam Vital Signs: BMI result Body Mass Index 23.7 Const General: cooperative, healthy appearing and comfortable Orientation/consciousness: oriented to person, oriented to place and oriented to time HEENT Head: Yes normal to inspection Neck Neck: Yes normal visual inspection Carotids: no bruits Chest Chest palpation & inspection: normal inspection of the chest Resp Effort & Inspection: normal respiratory effort and able to speak in complete sentences Auscultation: clear to auscultation bilaterally, no crackles, no rales, no rhonchi and no wheezes Cardio Rate: regular rate Rhythm: regular rhythm Heart sounds: S1 normal heart sound present and S2 normal heart sound present Bruits: no carotid bruits Peripheral pulses: Peripheral pulses 2+ throughout GI Inspection: Yes normal to inspection Skin Other: Incisions healing well Wounds: no wounds Hair: normal Neuro General: oriented to person, oriented to place and oriented to time Cranial nerves: Yes CN's II-XII intact bilaterally and Yes Normal hearing present Cognition (Neuro): normal cognition Motor exam (neuro): 5/5 motor strength present throughout Extrem Other: venous exam: No significant superficial varicosities or spider telangiectasias, minimal edema General: No clubbing, No cyanosis and No edema Psych Appearance: grossly normal Mental Status: mental status grossly normal Speech and movement: Normal speech and movement present Assessment & Plan Assessment & Plan (1) Varicose veins of right lower extremity with inflammation: Comment: 05/26/2023 - right leg microphlebectomy Code(s): I83.11 - Varicose veins of right lower extremity with inflammation Category: Medical Plan: See below (2) Varicose veins of left lower extremity with inflammation: Comment: 07/07/2023 - left leg microphlebectomy Code(s): I83.12 - Varicose veins of left lower extremity with inflammation Category: Medical Plan: The patient has done extremely well with all venous treatments. Patient's may often experience postprocedure phlebitic episodes and I have discussed with the patient use of warm compresses and NSAIDS if tolerated for pain discomfort. In addition, I have discussed continued conservative measures including use of compression, leg elevation, and exercise. The patient was also given an information sheet regarding appropriate use of compression stockings and future purchases. Thank you for allowing us to care for your patient with venous disease. Coding Level of Care Code Est Pt Level 3 (89169) Diagnoses Varicose veins of right lower extremity with inflammation I83.11 Varicose veins of left lower extremity with inflammation I83.12
[2023-07-20 15:13] VITALS: BMI 23.7
== END 2023-07-20 15:27 | disposition home or self-care (01) ==
PROVIDERS: PCP Internal Medicine; Visit Provider Surgery Vascular Surgery
DX: I83.11 Varicose veins of right lower extremity with inflammation (principal); I83.12 Varicose veins of left lower extremity with inflammation
CPT/HCPCS: 99213

== ENCOUNTER → 2023-07-20 15:09 | Outpatient (BNVA) | payer BC, SELFPAY | PROVIDERS: PCP Internal Medicine; Visit Provider Surgery Vascular Surgery ==

== ENCOUNTER 2023-07-26 16:38 | Outpatient (REF) | payer BC, SELFPAY ==
--- NOTE | ~2023-07-26 | MR_ITS ---
EXAMINATION: MR KNEE WITHOUT CONTRAST, RIGHT CLINICAL INFORMATION: Pain in the right knee. Patient reports prior meniscal surgery for meniscal tear. COMPARISON: X-rays of the right knee June 2023. TECHNIQUE: MRI of the knee without contrast was performed using routine sequences on a high-field scanner. FINDINGS: MENISCI: Medial Meniscus: There is some subtle oblique increased signal at the junction of the posterior horn and body, which appears to extend to the articular surface on a single coronal image 10 series 5. Meniscus is otherwise unremarkable. Findings could reflect postsurgical result. Correlate with any surgical history. Findings remain suspicious, but not definitive for meniscal tear. There is been no prior surgery to this portion of the meniscus. Lateral Meniscus: There is marked attenuation of the posterior horn and body of the meniscus, most likely reflects postsurgical result given the patient's surgical history. There is an additional fluid signal extending into the anterior horn with a possible concomitant intrasubstance meniscal cyst. These findings could all reflect postsurgical change, but cannot exclude new or recurrent tear. Correlate with surgical history to help determine the likelihood of a meniscal tear. LIGAMENTS: Cruciate: Intact Collateral: Intact EXTENSOR MECHANISM: Quadriceps and patella tendon intact. There is some linear, slightly irregular, low signal within the Hoffa's fat pad laterally, most likely reflecting postsurgical change/fibrosis. ARTICULAR CARTILAGE/BONE: Patellofemoral Compartment: Normal. Medial Compartment: Normal. Lateral Compartment: There is focal cartilage heterogeneity and subchondral sclerosis, and minimal edema along the posterior nonweightbearing portion of the lateral femoral condyle, over an area measuring approximately 10 x 10 mm. There is also some cartilage loss along the junction of the posterior weightbearing and nonweightbearing portion of the lateral femoral condyle, as well as along the posterior tibial articular surface. No marginal osteophytes. Overall findings indicative of mild arthrosis. JOINT FLUID AND BURSAE: Trace joint effusion. MR/MR knee RT wo con IMPRESSION: 1. Abnormal lateral meniscus most likely reflecting postsurgical result given the patient's surgical history. Cannot exclude new or recurrent tear particularly in the region of the anterior horn, where there may be an intrameniscal cyst present. Correlate with surgical history and clinical presentation to help determine likelihood of meniscal tear. 2. Subtle findings in the medial meniscus suspicious, but not definitive, for meniscal tear. Correlate with surgical history as this could also reflect postsurgical result. 3. Mild arthrosis of the lateral compartment. 4. Trace joint effusion.
== END 2023-07-26 16:39 | disposition home or self-care (01) ==
LOC: HO.MRI 16:38
PROVIDERS: PCP Internal Medicine; Visit Provider Orthopaedic Surgery
DX: M25.561 Pain in right knee (principal)
CPT/HCPCS: 73721

== ENCOUNTER 2023-08-04 07:56 | Outpatient (AMB) | payer BC, SELFPAY ==
--- NOTE | 2023-08-04 08:01 | A.OFFVIS_ITS ---
Intake Visit Reasons: OV- MRI review RT knee Intake Note: Sherry Miranda is a 52 year old female who presents with progressively worsening right knee pain and giving way. The patient states that she underwent right knee arthroscopic surgery by another orthopedic surgeon in 2020 for a ?meniscus tear?. The patient did very well initially following that procedure. The patient states that approximately 6 months ago she re-injured her right knee when she tripped over her daughter's labrador retriever. Since that time her symptoms have gotten progressively worse in spite of continued non operative treatments. She has failed conservative treatment over the last 6 weeks. She has had injections in the past which gave her minimal relief. She has also done physical therapy which aggravated her pain. She has tried Tylenol and ibuprofen which gave her minimal relief. Most of the pain is along the medial aspect of her right knee. Allergies No Known Allergies Allergy (Verified 08/04/23 08:02) Medication List - Last Reconciled 08/04/23 by Ruddy Bowden MD albuterol sulfate 90 mcg/actuation 2 puffs inhalation Q4-6H 90 days bupropion HCl XL 300 mg PO DAILY ibuprofen 800 mg PO Q8H PRN sertraline 100 mg PO DAILY PFSH Medical History Varicose 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 Mother No problems noted. 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 Cognitive needs: No Hearing needs: No Vision needs: Yes (Glasses) Physical Exam Const Other: Well-nourished well-developed very friendly female awake alert and oriented x3 in no acute distress Extrem Other: Bilateral lower extremity examination shows good capillary refill, no skin lesions noted, normal sensation light touch Right knee examination shows a minimal effusion, minimal crepitus with range of motion, positive Jeferson's test, tenderness along her medial and lateral joint lines Results Reviewed Results Reviewed: Standing full weight-bearing x-rays of the patient's right knee show mild diffuse joint space narrowing, no acute bony abnormalities MRI of the patient's right knee shows mild degenerative changes as well as tearing of the medial and lateral menisci, no acute bony abnormalities Assessment & Plan Assessment & Plan (1) Tear of medial meniscus of right knee: Code(s): S83.241A - Other tear of medial meniscus, current injury, right knee, initial encounter Category: Medical Plan Ms. Ahuja presents with progressively worsening right knee pain and mechanical symptoms due to tearing of her medial and lateral menisci. I had a lengthy discussion with the patient regarding the treatment options. At this point she has failed continued non operative treatments. The risks and benefits of right knee arthroscopic surgery were discussed at length with the patient. The patient wishes to proceed with surgery. Surgery will most likely involve right knee diagnostic arthroscopy with arthroscopic partial medial and lateral meniscectomies. The patient does understand that she may not get 100% relief of her symptoms depending on the severity of her degenerative changes. The patient will be scheduled for next available date. She will follow-up as instructed. Feel free to call me at any time should questions regarding her orthopedic management arise. I spent 20 minutes in reviewing the patient's records and imaging studies, seeing the patient and documenting in the medical record. Coding Level of Care Code Est Pt Level 3 (16782) Diagnoses Tear of medial meniscus of right knee S83.241A
== END 2023-08-04 08:20 | disposition home or self-care (01) ==
PROVIDERS: PCP Internal Medicine; Visit Provider Orthopaedic Surgery
DX: S83.241A Other tear of medial meniscus, current injury, right knee, initial encounter (principal); S83.281A Other tear of lateral meniscus, current injury, right knee, initial encounter
CPT/HCPCS: 99214

== ENCOUNTER → 2023-08-04 07:56 | Outpatient (BNVA) | payer BC, SELFPAY | PROVIDERS: PCP Internal Medicine; Visit Provider Orthopaedic Surgery ==

== ENCOUNTER 2023-08-18 05:58 | Day surgery (SDC) | payer BC, SELFPAY ==
[2023-08-15 15:31] VITALS: BMI 23.6
--- NOTE | 2023-08-16 13:58 | HO.ANESPROP2 ---
Documented by User: Giovanna Churchill NP 08/16/23 13:59 HPI - Anesthesia Eval Consult details Narrative: 52yo F for Right Knee Arthroscopy,partial medial and Lateral meniscectomy PMFSH Active Problems Active Problems: All Active Problems Tear of medial meniscus of right knee (Acute) Right knee pain (Acute) Encounter for screening colonoscopy (Acute) Varicose veins of left lower extremity with inflammation (Acute) Varicose veins of right lower extremity with inflammation (Acute) Major depression in partial remission (Acute) Tobacco use disorder (Acute) PAD (peripheral artery disease) (Acute) Conjunctivitis (Acute) Nausea (Acute) Left ankle sprain (Acute) Sore throat (Acute) Cough in adult (Acute) Effusion, right knee (Acute) Fracture of left ankle, lateral malleolus (Acute) Past Medical History Medical History Varicose veins of right lower extremity with inflammation Major depression in partial remission Tobacco use disorder Effusion, right knee Fracture of left ankle, lateral malleolus Collapsed lung (~2017) Family History Family History Father No problems noted. Mother No problems noted. Surgical History Surgical History History of vein stripping History of arthroplasty of left ankle History of knee surgery History of breast biopsy (~2006) Social History Social History Housing: House Alcohol intake: current Alcohol intake frequency: does not drink Alcohol type: wine Patient Tobacco Use Status: Current everyday Tobacco user Tobacco use type: Cigarette Cigarette Packs Per Day: 0.5 Cigarettes Per Day: 5 e-Cigarette/Vaping Use: Never Used Second Hand Smoke Exposure: Yes Are you DNR?: No Advance Directives: No Advance Directives Information Provided: Yes Nutrition Risks: No Nutritional Risk service: No Current occupational status: employed 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 @ [employer] Cognitive needs: No Hearing needs: No Vision needs: Yes (Glasses) Meds Allergies Allergy/AdvReac Type Severity Reaction Status Date / Time No Known Allergies Allergy Verified 08/04/23 08:02 Home Medications ?Medication ?Instructions ?Recorded ?Confirmed ?Last Taken ?Type ibuprofen 800 mg tablet 800 mg PO Q8H PRN sob 06/01/23 08/18/23 08/02/23 History Exam Height,Weight and Vital Signs: Height 5 ft 7.5 in Weight 69.4 kg Assessment and Plan Assessment Anesthesia Assessment: Chart Reviewed Documented by User: Briseyda Smith MD 08/18/23 07:54 PMFSH Past Medical History Medical History Varicose veins of right lower extremity with inflammation Major depression in partial remission Tobacco use disorder Effusion, right knee Fracture of left ankle, lateral malleolus Collapsed lung (~2017) Family History Family History Father No problems noted. Mother No problems noted. Family history of problems with anesthesia: No Surgical History Surgical History History of vein stripping History of arthroplasty of left ankle History of knee surgery History of breast biopsy (~2006) History of Problems with Anesthesia: No Social History Social History Housing: House Alcohol intake: current Alcohol intake frequency: does not drink Alcohol type: wine Patient Tobacco Use Status: Current everyday Tobacco user Tobacco use type: Cigarette Cigarette Packs Per Day: 0.5 Cigarettes Per Day: 5 e-Cigarette/Vaping Use: Never Used Second Hand Smoke Exposure: Yes Are you DNR?: No Advance Directives: No Advance Directives Information Provided: Yes Nutrition Risks: No Nutritional Risk service: No Current occupational status: employed 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 Discussed Final Anesthetic Review Family History of Problems with Anesthesia: No History of Problems with Anesthesia: No NPO: Yes ASA Class: III Final Preanesthetic Review: No Changes in Pt Med Stat, Meds/Allgs Chart Reviewed, Consent Obtained/Reviewed and Anes Risks/Benef Reviewed Patient Risk: Intermediate Procedure Risk: Low Anesthetic Plan Anesthetic Plan: GA Disposition: Standard PACU
[2023-08-18] VITALS (9 sets, daily range): BP systolic 128–143; BP diastolic 77–95; PULSE 84–106; RESP 12–18; TEMP 36.3–36.7; O2SAT 94–98; BMI 23.5
[2023-08-18] MEDS: Lactated Ringers 1,000 ML 100 ML IVCONT (06:31)
[2023-08-18] MEDS: Albuterol Sulfate (0.083%) 2.5 MG/3 ML VIAL.NEB INHALE (06:41)
--- NOTE | 2023-08-18 07:37 | PC.NURSE ---
24hr update documented on paper.
--- NOTE | 2023-08-18 07:43 | PC.NURSE ---
donovan waiver signed anesthesia aware
--- NOTE | 2023-08-18 08:43 | P.BOP_ITS ---
Brief Operative Note Date of Service: 08/18/23 Pre-op diagnosis: Right knee medial and lateral meniscus tears, right knee degenerative joint disease Post-op diagnosis: same Procedure: Right knee arthroscopic partial medial and lateral meniscectomies, right knee arthroscopic chondroplasty of the undersurface of the patella and medial femoral condyle Implants: none Surgeon: Ruddy Bowden MD Anesthesia: GLMA Was an Board Hammer Operator used for this Procedure?: No Estimated blood loss (mL): 10 Pathology: none sent Condition: stable Disposition: PACU
--- NOTE | 2023-08-18 08:44 | W.PM.OPN ---
Operative Note Operative Note Date of Service: 08/18/23 Narrative: After the patient was identified as Sherry Ahuja and her right knee was initialed by myself they were brought to the operating room where general anesthesia was induced by the anesthesiologist in routine fashion. The patient was given 2 g of IV Ancef for infection prophylaxis. A formal time-out was completed. The patient's right lower extremity was prepped and draped in sterile fashion. Marcaine with epinephrine was injected into the planned incision sites as well as their right knee joint. A # 11 scalpel blade was used to make an anterolateral portal 1 cm proximal to the joint line and 1 cm lateral to the patellar tendon. Blunt trocar technique was used into the suprapatellar pouch with the knee in extension. Diagnostic arthroscopy showed multiple bands of thickened plica which would be excised at the end of the procedure. There were no loose bodies or abnormalities found in either the medial or lateral gutters. There were diffuse grades 1 and 2 degenerative changes of the undersurface of the patella as well as grades 1 and 2 degenerative changes of the trochlear groove. The patient's knee was flexed to 45 degrees and a valgus force was placed upon it. The medial compartment was entered. An anteromedial portal was made 1 cm proximal to the joint line and 1 cm medial to the patellar tendon. Probing of the medial meniscus showed a radial tear of the posterior horn. A partial medial meniscectomy was performed using the arthroscopic shaver. Following the partial meniscectomy the remainder of the meniscus tissue was stable. There were diffuse grades 1 and 2 degenerative changes of the medial femoral condyle as well as diffuse grade 1 degenerative changes of the medial tibial plateau. The articular surface of the medial femoral condyle was made smooth using the arthroscopic shaver. The articular surface of the medial tibial plateau was already smooth so no chondroplasty was indicated. The patient's knee was then placed into a neutral position. There was no injury to the anterior cruciate ligament. The patient's knee was then placed into the figure of 4 position and the lateral compartment was entered. There were minimal degenerative changes of the lateral femoral condyle and lateral tibial plateau. There was a radial tear of the anterior horn of the lateral meniscus. A partial lateral meniscectomy was performed using the arthroscopic shaver. Following the partial meniscectomy the remainder of the meniscus tissue was stable. The patient's knee was once again brought into extension and the suprapatellar pouch was entered. The arthroscopic shaver and the ArthroCare Wand were used to excise the thickened bands of plica. The undersurface of the patella was then made smooth using the arthroscopic shaver. The articular surface of the trochlear groove was already smooth so no chondroplasty was indicated. The knee joint was irrigated and then drained. All arthroscopic instruments were removed. The 2 portals were closed with 3-0 nylon interrupted suture. The knee joint was injected with Marcaine. Dry sterile dressing and Emiliano bandages were placed over the patient's knee. The patient was awoken and extubated in the operating room. They were transferred to the recovery room in stable condition.
[2023-08-18] MEDS: fentaNYL citrate/PF 100 MCG/2 ML VIAL 25 MCG IVPUSH ×2 (08:45→08:50)
[2023-08-18] MEDS: cefTRIAXone sodium 1 GM in 0.9 % Sodium Chloride 50 ML IV (09:06)
== END 2023-08-18 09:47 | disposition home or self-care (01) ==
PROVIDERS: PCP Internal Medicine; Visit Provider Orthopaedic Surgery
PROC: (CPT 29870; principal; 2023-08-18 07:30)
DX: S83.241A Other tear of medial meniscus, current injury, right knee, initial encounter (principal); S83.281A Other tear of lateral meniscus, current injury, right knee, initial encounter; M17.11 Unilateral primary osteoarthritis, right knee; M67.51 Plica syndrome, right knee; I83.11 Varicose veins of right lower extremity with inflammation; F33.41 Major depressive disorder, recurrent, in partial remission; W01.0XXA Fall on same level from slipping, tripping and stumbling without subsequent striking against object, initial encounter; Y93.9 Activity, unspecified; Y92.89 Other specified places as the place of occurrence of the external cause; Y99.8 Other external cause status; Z87.09 Personal history of other diseases of the respiratory system; Z87.81 Personal history of (healed) traumatic fracture; Z79.1 Long term (current) use of non-steroidal anti-inflammatories (NSAID); Z79.899 Other long term (current) drug therapy; Z98.890 Other specified postprocedural states; F17.210 Nicotine dependence, cigarettes, uncomplicated
CPT/HCPCS: 29880; 29876; 94640; J0131; J0171; J0690; J0696; J1100; J1885; J2250; J2405; J2795; J3010

== ENCOUNTER → 2023-08-18 05:58 | Outpatient (BNV) | payer BC, SELFPAY | PROVIDERS: PCP Internal Medicine; Visit Provider Orthopaedic Surgery | DX: S83.241A Other tear of medial meniscus, current injury, right knee, initial encounter (principal); S83.281A Other tear of lateral meniscus, current injury, right knee, initial encounter | CPT/HCPCS: 29880 ==

== ENCOUNTER 2023-08-30 13:34 | Outpatient (AMB) | payer BC, SELFPAY ==
--- NOTE | 2023-08-30 13:35 | A.OFFVIS_ITS ---
Intake Visit Reasons: PO RT Knee 08/18/23 Intake Note: Sherry Miranda is a 52 year old female who presents to the office today for a PO right knee 08/18/23 . The patient reports mild to moderate discomfort in her right knee. She denies any fevers or chills. She has taken ibuprofen which gives her minimal relief. She has been working with her son who is a physical therapist. Allergies No Known Allergies Allergy (Verified 08/30/23 13:38) Medication List - Last Reconciled 08/30/23 by Ruddy Bowden MD albuterol sulfate 90 mcg/actuation 2 puffs inhalation Q4-6H 90 days bupropion HCl XL 300 mg PO DAILY ibuprofen 800 mg PO Q8H PRN oxycodone 5 mg PO Q6H PRN sertraline 100 mg PO DAILY PFSH Medical History Varicose 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 Mother No problems noted. 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 Ahuja is doing fairly well after undergoing right knee arthroscopic surgery on 08/18/2023. Her sutures were removed and Steri-Strips placed over her incisions. She will continue with her physical therapy exercises. I did give her a prescription for meloxicam to help with her discomfort. She will contact me prior to her follow-up appointment in 6 weeks should any questions or concerns arise. Feel free to call me at any time should questions regarding her orthopedic management arise. Medications: New meloxicam 15 mg PO DAILY PRN 30 tabs 2RF pain Coding Level of Care Code Global (66183) Diagnoses Right knee pain M25.561
== END 2023-08-30 14:21 | disposition home or self-care (01) ==
PROVIDERS: PCP Internal Medicine; Visit Provider Orthopaedic Surgery
DX: M25.561 Pain in right knee (principal)
CPT/HCPCS: 99024

== ENCOUNTER → 2023-08-30 13:34 | Outpatient (BNVA) | payer BC, SELFPAY | PROVIDERS: PCP Internal Medicine; Visit Provider Orthopaedic Surgery ==

== ENCOUNTER 2023-10-03 13:29 | Outpatient (AMB) | payer BC, SELFPAY ==
--- NOTE | 2023-10-03 13:52 | MHC.OFFVIS ---
Intake Visit Reasons: PO RT Knee 08/18/23 DR Intake Note: Sherry a 52 year old female who presents with complaints of mild intermittent discomfort in her right knee after undergoing right knee arthroscopic surgery on 08/18/2023. She continues to gradually progress to activities as tolerated. She did aggravate her knee several days ago while mowing her grass. She denies any fevers or chills. She denies any locking or giving way. Allergies No Known Allergies Allergy (Verified 10/03/23 14:03) Medication List - Last Reconciled 10/03/23 by Ruddy Bowden MD albuterol sulfate 90 mcg/actuation 2 puffs inhalation Q4-6H 90 days bupropion HCl XL 300 mg PO DAILY meloxicam 15 mg PO DAILY PRN oxycodone 5 mg PO Q6H PRN sertraline 100 mg PO DAILY PFSH Medical History Varicose 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 Mother No problems noted. 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 Ahuja continues to do fairly well after undergoing right knee arthroscopic surgery on 08/18/2023. She does have residual discomfort due to early degenerative joint disease. I did give her a prescription for a Medrol Dosepak to help with her discomfort. I will clear her to return to work over the next few weeks once her discomfort has improved. She will contact me prior to her follow-up appointment in 2 months should any questions or concerns arise. Feel free to call me at any time should questions regarding her orthopedic management arise. Medications: New methylprednisolone (Medrol (Kalen)) PO PER PKG DIR 21 ea 0RF Coding Level of Care Code Global (92008) Diagnoses Right knee pain M25.561
== END 2023-10-03 14:12 | disposition home or self-care (01) ==
PROVIDERS: PCP Internal Medicine; Visit Provider Orthopaedic Surgery
DX: M25.561 Pain in right knee (principal)
CPT/HCPCS: 99024

== ENCOUNTER → 2023-10-03 13:29 | Outpatient (BNVA) | payer BC, SELFPAY | PROVIDERS: PCP Internal Medicine; Visit Provider Orthopaedic Surgery ==

== ENCOUNTER 2023-10-05 13:57 | Outpatient (AMB) | payer BC, SELFPAY ==
--- NOTE | 2023-10-05 14:00 | AM.OFFWIN_ITS ---
Intake Vital Signs 10/05/23 14:01 Weight 152 lb BP 140/100 H Blood Pressure Location Rt brachial Position Sitting Pulse 99 Pulse Source Pulse Oximeter Pulse Oximetry (%) 99 Oxygen Delivery Method Room Air Intake Visit Reasons: EP- RT ankle pain, swelling, bruising Intake Note: Patient here because she was climbing on pool ladder and missed the last step and ankle twisted Patient Tobacco Use Status: Current everyday Tobacco user Allergies No Known Allergies Allergy (Verified 10/05/23 14:02) Do you need a note to return to daycare/school/sports/work: No HPI HPI Comments History of Present Illness Details 52 y/o female patient [facility] with c/o right Ankle injury. Reports twisted Ankle on the pool stairs when she was getting into the pool. This happened ~ 1 hour ago. Reports pain with swelling, getting worse. [facility] Medical History Varicose 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 Mother No problems noted. 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 Cognitive needs: No Hearing needs: No Vision needs: Yes (Glasses) Review of Systems Const All systems reviewed & are unremarkable except as noted in HPI and below Physical Exam Vital Signs: Last Vital Signs Pulse 99 10/05/23 14:01 BP 140/100 H 10/05/23 14:01 Pulse Ox 99 10/05/23 14:01 Oxygen Delivery Method Room Air 10/05/23 14:01 Const General: cooperative and no acute distress Nutritional Appearance: thin Orientation/consciousness: patient oriented x3 Skin General skin exam: no rashes or lesions noted Neuro General: patient oriented x3, gait normal (Walks with a limp) and moves all extremities Extrem Right lower extremity: normal capillary refill, ankle Details: tenderness Location: of the medial malleolus, swelling Details: laterally, no edema and abnormal ROM (Limited due to pain) Details: pain with active ROM and pain with passive ROM; no crepitus and foot Details: normal capillary refill, toes with normal ROM and no edema; no edema, no abrasion and no ecchymosis Left lower extremity: normal to inspection and foot Details: normal capillary refill Psych Speech and movement: Normal speech and movement present Assessment & Plan Assessment & Plan (1) Right ankle strain: Code(s): S96.911A - Strain of unspecified muscle and tendon at ankle and foot level, right foot, initial encounter Qualifiers: Encounter type: initial encounter Qualified Code(s): S96.911A - Strain of unspecified muscle and tendon at ankle and foot level, right foot, initial encounter Plan: Acetaminophen and NSAIDs Ankle Brace provided. Ordered Xray Ankle/Foot. Coding Level of Care Code Est Pt Level 4 (31896) Diagnoses Strain of right ankle, initial encounter S96.911A Encounter type: initial encounter Time Spent (min) 20
[2023-10-05 14:01] VITALS: BP 140/100; PULSE 99; O2SAT 99
== END 2023-10-05 14:28 | disposition home or self-care (01) ==
PROVIDERS: PCP Internal Medicine; Visit Provider Nurse Practitioner Family
DX: S96.911A Strain of unspecified muscle and tendon at ankle and foot level, right foot, initial encounter (principal)
CPT/HCPCS: 99214

== ENCOUNTER 2023-10-05 14:13 | Outpatient (REF) | payer BC, SELFPAY ==
--- NOTE | ~2023-10-05 | XR_ITS ---
EXAMINATION: XR ANKLE, RIGHT CLINICAL INFORMATION: 52 y/o female patient with c/o right ankle swelling and pain. She injured her foot by twisting Ankle on pool stairs. COMPARISON: None available. TECHNIQUE: AP, lateral, and mortise views of the right ankle. FINDINGS: Moderate soft tissue swelling overlying the lateral malleolus. No ankle joint effusion. No acute fracture. Osseous structures are in anatomic alignment. Ankle mortise is symmetric. Os trigonum. XR/XR ankle RT min 3V IMPRESSION: Moderate soft tissue swelling overlying the lateral malleolus. No acute fracture.
== END 2023-10-05 14:14 | disposition home or self-care (01) ==
LOC: HO.HMGCX 14:13
PROVIDERS: PCP Internal Medicine; Visit Provider Nurse Practitioner Family
DX: S96.911A Strain of unspecified muscle and tendon at ankle and foot level, right foot, initial encounter (principal)
CPT/HCPCS: 73610

== ENCOUNTER 2023-10-12 09:46 | Outpatient (AMB) | payer BC, SELFPAY ==
[2023-10-12 09:54] VITALS: BP 134/82; PULSE 89; O2SAT 93; BMI 23.0
--- NOTE | 2023-10-12 09:54 | MHC.PC.OV ---
Vital Signs 10/12/23 09:54 Height 5 ft 7.5 in Weight 149 lb 2 oz BMI 23.0 BP 134/82 Blood Pressure Location Lt brachial Position Sitting Pulse 89 Pulse Source Pulse Oximeter Pulse Oximetry (%) 93 Oxygen Delivery Method Room Air Intake Visit Reasons: 6 month f/u Patch Washer Required: No Accompanied by: Self / Same As Patient Allergies No Known Allergies Allergy (Verified 10/13/23 07:11) Medication List - Last Reconciled 10/13/23 by Taqueria Morales MD albuterol sulfate 90 mcg/actuation 2 puffs inhalation Q4-6H 90 days bupropion HCl XL 300 mg PO DAILY meloxicam 15 mg PO DAILY PRN sertraline 100 mg PO DAILY Tobacco use date assessed: 10/12/23 Dental Screening Dental Screen Date: 10/12/23 Did you have a dental visit in the last 12 months?: Yes Did you have a dental problem in the last 6 months where you did not have access to dental care?: No Was dental information given to patient?: Patient has dentist HPI 6 month f/u HPI Details 52-year-old female presents to the office to discuss her chronic medical conditions. Patient had surgery in her right knee in July. She has not been working since and is expected to return to work in October. Continues to have discomfort in the knee area. Able to walk without a limp. Able to do her activities of daily living. Requesting a refill on the ibuprofen. Patient reports that her mental health is stable. Continues to smoke. She drinks at least 2 glasses of wine 4 days a week. In addition she consumes hard liquor. [facility] Medical History Varicose 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 Mother No problems noted. 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 1. Little interest or pleasure in doing things: not at all 2. Feeling down, depressed, or hopeless: more than half the days 3. Trouble falling or staying asleep, or sleeping too much: more than half the days 4. Feeling tired or having little energy: more than half the days 5. Poor appetite or overeating: nearly every day 6. Feeling bad about yourself - or that you are a failure or have let yourself or your family down: not at all 7. Trouble concentrating on things, such as reading the newspaper or watching television: not at all 8. Moving or speaking so slowly that other people could have noticed. Or the opposite - being so fidgety or restless that you have been moving around a lot more than usual: not at all 9. Thoughts that you would be better off or of hurting yourself in some way: not at all Total score: 9 Depression Screening Interpretation: Positive Depression Screening Follow-up: Existing condition and In treatment Depression Screening Done: Yes Source: Developed by Drs. Sony Foy, Serena Ramsay, Josue Leon and colleagues, with an educational juan ramon from [employer] Thrive Questionnaire Date Thrive assessed: 10/12/23 I am a: Patient What is your living situation today?: I have a steady place to live Within the past 12 months, did the food you bought not last and you didn't have the money to get more?: Never true Within the past 12 months, did you worry whether your food would run out before you got money to buy more?: Never true Do you have trouble paying for medicines?: No Do you have trouble getting transportation to medical appointments?: No Do you have trouble paying your heating and electricity bill?: No Do you have trouble taking care of your child, family member or friend?: No Do you have trouble with day-to-day activities such as bathing, preparing meals, shopping, managing finances, etc.?: No Are you currently unemployed and looking for a job?: No Are you interested in more education?: No Please select the resources that you would like help with: None Currently or been in a relationship where the following occur: No concerns reported THRIVE Score: 0 AUDIT C Alcohol Use Questionnaire (AUDIT-C) 1. How often do you have a drink containing alcohol?: 4 or more times a week 2. How many drinks containing alcohol do you have on a typical day when you are drinking?: 1 or 2 Total Score: 4 ROBIN-7 AMB Questionnaire ROBIN-7 Date ROBIN - 7 assessed: 10/12/23 Feeling nervous, anxious, or on edge: 0 = Not at all Not being able to stop or control worryin = Not at all Worrying too much about different things: 0 = Not at all Trouble relaxin = Not at all Being so restless that it is hard to sit still: 0 = Not at all Becoming easily annoyed or irritable: 0 = Not at all Feeling afraid as if something awful might happen: 0 = Not at all Total ROBIN-7 score (0-4 normal; 5-9 mild; 10-14 moderate; 15-21 severe): 0 Source: Developed by Drs. Sony Foy, Serena Ramsay, Josue Leon and colleagues, with an educational juan ramon from [employer] Physical exam (Primary Care) Vital Signs: Last Vital Signs Pulse 89 10/12/23 09:54 BP 134/82 10/12/23 09:54 Pulse Ox 93 10/12/23 09:54 Oxygen Delivery Method Room Air 10/12/23 09:54 Care Plan Goal for BP management: Blood pressure is in range. BMI result Body Mass Index 23.0 Tobacco/Smoking Status: Tobacco use Status Tobacco use date assessed 10/12/23 10/12/23 10:02 Patient Tobacco Use Status Current everyday Tobacco 10/12/23 10:02 Tobacco use type Cigarette 10/12/23 10:02 e-Cigarette/Vaping Use Never Used 10/12/23 10:02 Are you ready to quit: No Tobacco cessation counseling provided: No PHQ-9: PHQ-9 Score PHQ-9: Total score 9 10/12/23 10:58 Depression Screening Interpretation: Positive Depression Screening Follow-up: Existing condition and In treatment Thrive Assessment: Date of Thrive Assessment Date Thrive assessed 10/12/23 10/12/23 10:02 Currently or been in a relationship where the following occur: No concerns reported Const General: cooperative and healthy appearing Nutritional Appearance: well nourished Orientation/consciousness: patient oriented x3 Limitations: no limitations HENMT Head: Yes normal to inspection Eyes General: appearance normal, both eyes and all related structures Neck Neck: Yes normal visual inspection Chest Chest palpation & inspection: normal palpation of entire chest wall Resp Effort & Inspection: normal respiratory effort Neuro General: patient oriented x3 Assessment and Plan Assessment & Plan (1) Major depression in partial remission: Code(s): F32.4 - Major depressive disorder, single episode, in partial remission Plan: Condition is stable. Continue current medications. (2) Tobacco use disorder: Code(s): F17.200 - Nicotine dependence, unspecified, uncomplicated Plan: Counseling to quit smoking done. 10 minutes spent explaining the dangers of smoking. (3) PAD (peripheral artery disease): Code(s): I73.9 - Peripheral vascular disease, unspecified Plan: Patient was advised to quit smoking. (4) Tear of medial meniscus of right knee: Code(s): S83.241A - Other tear of medial meniscus, current injury, right knee, initial encounter Plan: Patient is recovering from surgery. Continue physical therapy. Orders: Orders Basic Metabolic Panel 10/12/23 F17.200 - Nicotine dependence, unspecified, uncomplicated, F32.4 - Major depressive disorder, single episode, in partial remission, I73.9 - Peripheral vascular disease, unspecified Lipid Panel 10/12/23 F17.200 - Nicotine dependence, unspecified, uncomplicated, F32.4 - Major depressive disorder, single episode, in partial remission, I73.9 - Peripheral vascular disease, unspecified Liver Panel 10/12/23 F17.200 - Nicotine dependence, unspecified, uncomplicated, F32.4 - Major depressive disorder, single episode, in partial remission, I73.9 - Peripheral vascular disease, unspecified Thyroid Stimulating Hormone 10/12/23 F17.200 - Nicotine dependence, unspecified, uncomplicated, F32.4 - Major depressive disorder, single episode, in partial remission, I73.9 - Peripheral vascular disease, unspecified UA and rflx microscopic 10/12/23 F17.200 - Nicotine dependence, unspecified, uncomplicated, F32.4 - Major depressive disorder, single episode, in partial remission, I73.9 - Peripheral vascular disease, unspecified MM screening mammo BI 10/12/23 Z12.31 - Encounter for screening mammogram for malignant neoplasm of breast Complete Blood Count no Diff 10/12/23 F17.200 - Nicotine dependence, unspecified, uncomplicated, F32.4 - Major depressive disorder, single episode, in partial remission, I73.9 - Peripheral vascular disease, unspecified Medications: Refilled meloxicam 15 mg PO DAILY PRN 30 tabs 2RF pain Coding Level of Care Code Est Pt Level 4 (47363) Complex EM visit Add On G2211 Diagnoses Major depression in partial remission F32.4 Tobacco use disorder F17.200 PAD (peripheral artery disease) I73.9 Tear of medial meniscus of right knee S83.690A
== END 2023-10-12 10:56 | disposition home or self-care (01) ==
PROVIDERS: Visit Provider Internal Medicine
DX: F32.4 Major depressive disorder, single episode, in partial remission (principal); F17.200 Nicotine dependence, unspecified, uncomplicated; I73.9 Peripheral vascular disease, unspecified; S83.241A Other tear of medial meniscus, current injury, right knee, initial encounter
CPT/HCPCS: 99214

== ENCOUNTER 2023-10-31 10:36 | Outpatient (AMB) | payer BC, SELFPAY ==
[2023-10-31 10:48] VITALS: BP 142/80; PULSE 88; O2SAT 98; BMI 23.3
--- NOTE | 2023-10-31 10:48 | AM.OFFWIN_ITS ---
Intake Vital Signs 3 10/31/23 10:48 Height 5 ft 7.5 in Weight 151 lb 4 oz BMI 23.3 BP 142/80 H Blood Pressure Location Rt brachial Position Sitting Pulse 88 Pulse Source Pulse Oximeter Pulse Oximetry (%) 98 Oxygen Delivery Method Room Air Intake Visit Reasons: EP Wound RT bug toe ?Infection Patient Tobacco Use Status: Current everyday Tobacco user Allergies No Known Allergies Allergy (Verified 10/31/23 10:53) Medication List - Last Reconciled 10/31/23 by Enrique Stiles MD albuterol sulfate 90 mcg/actuation 2 puffs inhalation Q4-6H 90 days bisacodyl (Dulcolax (bisacodyl)) 20 mg (4 x 5 mg) PO ONCE 1 day bupropion HCl XL 300 mg PO DAILY meloxicam 15 mg PO DAILY PRN polyethylene glycol 3350 (Miralax) 238 grams PO ONCE 1 day sertraline 100 mg PO DAILY Do you need a note to return to daycare/school/sports/work: No HPI EP Wound RT bug toe ?Infection 2 HPI0 Details 52-year-old female stepped on something in her garage a week ago And try to take it out herself Now left big toe is infected Swelling is going as high as her ankle On examination she has a deep wound left big toe plantar aspect Her tetanus vaccine was in 2013 Tetanus was given today X-ray order placed, antibiotic sent If there is a foreign body patient will need to see the surgeon Otherwise she will be seeing a wound clinic until wound is healed. Review system revealed no fever no chills no nausea no vomiting no headache no dizziness [facility] Medical History Varicose 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 Mother No problems noted. 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 Cognitive needs: No Hearing needs: No Vision needs: Yes (Glasses) Review of Systems Const All systems reviewed & are unremarkable except as noted in HPI and below Physical Exam Vital Signs: Last Vital Signs Pulse 88 10/31/23 10:48 BP 142/80 H 10/31/23 10:48 Pulse Ox 98 10/31/23 10:48 Oxygen Delivery Method Room Air 10/31/23 10:48 BMI result Body Mass Index 23.3 Const General: no acute distress Orientation/consciousness: patient oriented x3 Eyes General: appearance normal, both eyes and all related structures Resp Effort & Inspection: normal respiratory effort and able to speak in complete sentences Neuro General: patient oriented x3 Extrem Ankle/foot/toe images: 2 1. Deep wound with inflammation, sensory and vascular intact Psych Mental Status: mental status grossly normal Assessment & Plan Assessment & Plan (1) Injury of toe on left foot: Code(s): S99.922A - Unspecified injury of left foot, initial encounter Qualifiers: Encounter type: initial encounter Qualified Code(s): S99.922A - Unspecified injury of left foot, initial encounter (2) Wound, open, foot with complication: Code(s): S91.309A - Unspecified open wound, unspecified foot, initial encounter Qualifiers: Encounter type: initial encounter Laterality: left Qualified Code(s): S91.302A - Unspecified open wound, left foot, initial encounter Plan 52-year-old female stepped on something in her garage a week ago And try to take it out herself Now left big toe is infected Swelling is going as high as her ankle On examination she has a deep wound left big toe plantar aspect Her tetanus vaccine was in 2013 Tetanus was given today X-ray order placed, antibiotic sent If there is a foreign body patient will need to see the surgeon Otherwise she will be seeing a wound clinic until wound is healed. Review system revealed no fever no chills no nausea no vomiting no headache no dizziness Orders: Orders 2 TDaP Immunization Today S91.302A - Unspecified open wound, left foot, initial encounter, S99.922A - Unspecified injury of left foot, initial encounter Medications: New 2 amoxicillin-pot clavulanate 500-125 mg (Augmentin) 1 tab PO TID 30 tabs 0RF Coding Level of Care Code Est Pt Level 4 (21774) Diagnoses Injury of toe on left foot, initial encounter S99.922A Encounter type: initial encounter Open wound of left foot with complication, initial encounter S91.302A Encounter type: initial encounter Laterality: left
== END 2023-10-31 11:09 | disposition home or self-care (01) ==
PROVIDERS: PCP Internal Medicine; Visit Provider Internal Medicine
DX: S91.302A Unspecified open wound, left foot, initial encounter (principal); S99.922A Unspecified injury of left foot, initial encounter
CPT/HCPCS: 90471; 90715; 99214

== ENCOUNTER 2023-10-31 11:04 | Outpatient (REF) | payer BC, SELFPAY ==
--- NOTE | ~2023-10-31 | XR_ITS ---
EXAMINATION: XR TOES, RIGHT CLINICAL INFORMATION: Right toe injury oblique toe COMPARISON: None available. TECHNIQUE: 3 views of the right toes were obtained. FINDINGS: There are no fractures or dislocations. No joint effusion is identified. No bone, joint or soft tissue abnormality is demonstrated. XR/XR toe RT min 2V IMPRESSION: Unremarkable examination. Electronically signed by: Kade Larkin MD 11/15/2023 07:00 AM EDT RP
== END 2023-10-31 11:05 | disposition home or self-care (01) ==
LOC: HO.HMGCX 11:04
PROVIDERS: PCP Internal Medicine; Visit Provider Internal Medicine
DX: S99.922A Unspecified injury of left foot, initial encounter (principal)
CPT/HCPCS: 73660

== ENCOUNTER 2023-11-08 08:47 | Outpatient (AMB) | payer BC, SELFPAY ==
--- NOTE | 2023-11-08 08:48 | A.OFFPC_ITS ---
Vital Signs 11/08/23 08:50 Height 5 ft 7.5 in Weight 149 lb 8 oz BMI 23.1 BP 130/60 Blood Pressure Location Lt brachial Position Sitting Pulse 82 Pulse Source Pulse Oximeter Pulse Oximetry (%) 99 Oxygen Delivery Method Room Air Intake Visit Reasons: Toe infection Intake Note: Patient is here to follow up on right great toe infection. Chief Enterprise Architect Required: No Data Governance Consultant: Not Required per policy Accompanied by: Self / Same As Patient Allergies No Known Allergies Allergy (Verified 11/08/23 09:22) Medication List - Last Reconciled 11/08/23 by Taqueria Morales MD acetaminophen 975 mg PO Q12H PRN albuterol sulfate 90 mcg/actuation 2 puffs inhalation Q4-6H 90 days amlodipine 10 mg PO DAILY bisacodyl (Dulcolax (bisacodyl)) 20 mg (4 x 5 mg) PO ONCE 1 day bupropion HCl XL 300 mg PO DAILY linezolid 600 mg PO Q12H meloxicam 15 mg PO DAILY PRN polyethylene glycol 3350 (Miralax) 238 grams PO ONCE 1 day sertraline 100 mg PO DAILY Tobacco use date assessed: 11/08/23 Dental Screening Dental Screen Date: 10/12/23 HPI Toe infection HPI Details 52-year-old female presents to the [facility] for a hospital discharge follow-up. Patient injured her toe 10 days ago. She was seen at the walk-in and x-rays ordered. The x-ray was unremarkable. However patient had persistent discharge from the wound and was very painful. She was seen at [facility] and admitted to rule out osteomyelitis. MRI of the foot ruled out osteomyelitis. Patient has been started on linezolid and advised to follow-up with a wound care clinic. Patient presents to the office requesting an appointment for the same. She is unable to work and needs a note. She has oral antibiotics that she is taking. [facility] Medical History Varicose veins of right lower extremity with inflammation Major depression in partial remission Tobacco use disorder Effusion, right knee Fracture of left ankle, lateral malleolus Collapsed lung (~2018) Surgical History History of vein stripping History of arthroplasty of left ankle History of knee surgery History of breast biopsy (~2006) Family History Father No problems noted. Mother No problems noted. 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 Sony Foy, Serena Ramsay, Josue Leon and colleagues, with an educational juan ramon from [email or web address]. Physical exam (Primary Care) Vital Signs: Last Vital Signs Pulse 82 11/08/23 08:50 BP 130/60 11/08/23 08:50 Pulse Ox 99 11/08/23 08:50 Oxygen Delivery Method Room Air 11/08/23 08:50 BMI result Body Mass Index 23.1 Tobacco/Smoking Status: Tobacco use Status Tobacco use date assessed 11/08/23 11/08/23 08:58 Patient Tobacco Use Status Former Tobacco user (11/03/23 11/08/23 08:58 ) Tobacco use type Cigarette 11/08/23 08:58 e-Cigarette/Vaping Use Never Used 11/08/23 08:58 Thrive Assessment: Date of Thrive Assessment Date Thrive assessed 10/12/23 11/08/23 08:58 Extrem Other: Foot: Great toe and the digit next to it are bandaged. Patient reports the wound is only in the great toe on the plantar side. The bandage was not opened. Patient showed a picture on her phone. Apparently an ulcerated wound is present on the plantar side of the great toe. The bandage is clean with no drainage. Assessment and Plan Assessment & Plan (1) Wound, open, foot with complication: Code(s): S91.309A - Unspecified open wound, unspecified foot, initial encounter Qualifiers: Encounter type: initial encounter Laterality: left Qualified Code(s): S91.302A - Unspecified open wound, left foot, initial encounter Plan: As the bandage was just done yesterday, the wound was not reexamined. A wound clinic appointment has been scheduled. Continue the antibiotics started at the hospital. Orders: Referrals Wound Care Referral S91.302A - Unspecified open wound, left foot, initial encounter Coding Level of Care Code Est Pt Level 3 (85075) Complex EM visit Add On G2211 Diagnoses Open wound of left foot with complication, initial encounter S91.302A Encounter type: initial encounter Laterality: left
[2023-11-08 08:50] VITALS: BP 130/60; PULSE 82; O2SAT 99; BMI 23.1
== END 2023-11-08 10:20 | disposition home or self-care (01) ==
PROVIDERS: PCP Internal Medicine; Visit Provider Internal Medicine
DX: S91.302A Unspecified open wound, left foot, initial encounter (principal)

== ENCOUNTER → 2023-11-08 08:47 | Outpatient (BNVA) | payer BC, SELFPAY | PROVIDERS: PCP Internal Medicine; Visit Provider Internal Medicine | DX: S91.102D Unspecified open wound of left great toe without damage to nail, subsequent encounter (principal); L08.9 Local infection of the skin and subcutaneous tissue, unspecified; X58.XXXD Exposure to other specified factors, subsequent encounter ==

== ENCOUNTER 2023-11-29 10:23 | Outpatient (AMB) | payer BC, SELFPAY ==
--- NOTE | 2023-11-29 11:25 | AM.OFFWIN_ITS ---
Intake Vital Signs 3 11/29/23 11:30 Weight 150 lb BP 140/100 H Blood Pressure Location Lt brachial Position Sitting Pulse 78 Pulse Source Pulse Oximeter Pulse Oximetry (%) 97 Oxygen Delivery Method Room Air Intake Visit Reasons: EP-rt toe ulcer Intake Note: Patient here for right toe wound that has been present since september. Patient Tobacco Use Status: Former Tobacco user (11/03/23) Allergies No Known Allergies Allergy (Verified 11/29/23 11:30) Do you need a note to return to daycare/school/sports/work: Yes HPI HPI Comments 2 History of Present Illness0 Details Patient is a 53-year-old female who injured her toe in September in her garage. She was started on Augmentin in this office on October 30 however the wound persisted so she went to [facility] emergency department where she was admitted to rule out osteomyelitis, MRI ruled out osteomyelitis; she was started on linezolid and discharged home. She saw her PCP for a follow-up on November 07 and she was referred to wound care. She tells me her appointment with the wound care is not for 2 more weeks and the toe is painful and tender. She states it does leak fluid, when the fluid dries it is brown, she does not notice any yellow thick fluid coming from it. She has shown me an old bandage with light brown stains. [facility] Medical History Varicose 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 Mother No problems noted. 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 Cognitive needs: No Hearing needs: No Vision needs: Yes (Glasses) Review of Systems Const All systems reviewed & are unremarkable except as noted in HPI and below Physical Exam Vital Signs: Last Vital Signs Pulse 78 11/29/23 11:30 BP 140/100 H 11/29/23 11:30 Pulse Ox 97 11/29/23 11:30 Oxygen Delivery Method Room Air 11/29/23 11:30 Const General: cooperative, healthy appearing, comfortable and no acute distress Orientation/consciousness: patient oriented x3 Limitations: no limitations HEENT Head: Yes normal to inspection Resp Effort & Inspection: normal respiratory effort and able to speak in complete sentences Neuro General: patient oriented x3 Extrem Other: Right lower extremity: foot Details: abnormal to inspection (see above pic, no warmth or purulence noted), tenderness Location: of the great toe and toes with normal ROM Assessment & Plan Assessment & Plan (1) Wound, open, foot with complication: Code(s): S91.309A - Unspecified open wound, unspecified foot, initial encounter Qualifiers: Encounter type: initial encounter Laterality: left Qualified Code(s): S91.302A - Unspecified open wound, left foot, initial encounter Plan: Upon exam, the toe does not look infected today. However the patient would benefit greatly from some wound care as she just currently not doing anything besides keeping it covered, and it is painful. We were able to call the wound care clinic and get the patient's appointment moved to MondayNovember 30 from December 13. Recommended she keep it dry and covered until she sees wound care. Plan see above Coding Level of Care Code Est Pt Level 4 (73606) Diagnoses Open wound of left foot with complication, initial encounter S91.302A Encounter type: initial encounter Laterality: left
[2023-11-29 11:30] VITALS: BP 140/100; PULSE 78; O2SAT 97
== END 2023-11-29 12:27 | disposition home or self-care (01) ==
PROVIDERS: PCP Internal Medicine; Visit Provider Physician Assistant
DX: S91.302A Unspecified open wound, left foot, initial encounter (principal)

== ENCOUNTER → 2023-11-29 10:23 | Outpatient (BNVA) | payer SELFPAY | PROVIDERS: PCP Internal Medicine; Visit Provider Physician Assistant ==

== ENCOUNTER 2024-02-23 10:38 | Outpatient (RCR) | payer BC, SELFPAY | END 2024-05-16 15:31 | disposition home or self-care (01) | LOC: HO.WCC 10:38 | PROVIDERS: PCP Internal Medicine; Visit Provider Surgery | DX: L97.512 Non-pressure chronic ulcer of other part of right foot with fat layer exposed (principal); G60.9 Hereditary and idiopathic neuropathy, unspecified | CPT/HCPCS: 11042; 17250; 97597; 99212 ==

== ENCOUNTER 2024-05-23 08:32 | Emergency (ER) | payer SELFPAY ==
--- NOTE | ~2024-05-23 | XR_ITS ---
EXAMINATION: XR SHOULDER 2 OR MORE VIEWS LEFT HISTORY: Fall, left shoulder injury COMPARISON: There are no prior studies available for comparison. FINDINGS: Four views of the left shoulder are submitted. Osseous mineralization is normal. There is no fracture or dislocation. The joint spaces are preserved. The soft tissues are unremarkable. XR/XR shoulder LT min 2V IMPRESSION: Unremarkable examination of the left shoulder. Electronically signed by: Sony Meier MD 05/23/2024 10:04 AM EDT
--- NOTE | ~2024-05-23 | CT_ITS ---
EXAMINATION: CT HEAD WITHOUT CONTRAST CLINICAL INFORMATION: fall, head injury COMPARISON: None available. TECHNIQUE: Contiguous axial imaging was performed from the skull base to vertex without intravenous administration of contrast. This CT examination was performed using dose optimization techniques as appropriate, variously including the following: *Automated exposure control *Adjustment of mA and/or kV according to patient size (this includes techniques or standardized protocols for targeted exams where dose is matched to indication/reason for exam; i.e. extremities or head) *Use of iterative reconstruction technique DLP: 693.77 mGy-cm FINDINGS: Bony calvarium is intact. Skull base is intact. No acute intracranial hemorrhage, mass effect, midline shift, hydrocephalus or herniation. Winters-white matter differentiation is normal. Prominence of the extra-axial CSF spaces cerebral sulci and ventricles likely central volume loss. Probable old lacunar infarcts in the basal ganglia. Sellar/suprasellar region demonstrated no gross masses or hemorrhage. Craniocervical junction is intact. Polypoid mucosal thickening, left maxillary sinus. Effervescent secretions. No air-fluid levels in the paranasal sinuses. Tympanic cavities and mastoid air cells are aerated. Metallic piercing in the right nostril. CT/CT head/brain wo IV con IMPRESSION: No acute fracture, bony calvarium. No acute intracranial hemorrhage. Acute on chronic left maxillary sinus disease. Electronically signed by: David Meraz MD 05/23/2024 10:30 AM EDT
--- NOTE | ~2024-05-23 | CT_ITS ---
EXAMINATION: CT CERVICAL SPINE WITHOUT CONTRAST CLINICAL INFORMATION: Status post fall. COMPARISON: None available. TECHNIQUE: Contiguous axial images through the cervical spine using 3 mm collimation with bone and soft tissue algorithm. Sagittal and coronal reformatted images acquired. This CT examination was performed using dose optimization techniques as appropriate, variously including the following: *Automated exposure control *Adjustment of mA and/or kV according to patient size (this includes techniques or standardized protocols for targeted exams where dose is matched to indication/reason for exam; i.e. extremities or head) *Use of iterative reconstruction technique. DLP: 347.21 mGy centimeter. FINDINGS: Craniocervical junction is intact. Marginal osteophyte formation and endplate sclerosis subchondral cyst formation and decreased intervertebral disc height at C5-C6. There is normal alignment between the vertebral bodies and the facet joints. C1 is intact. C2 is intact. C3 is intact. C4 is intact. C5 is intact. C6 is intact. C7 is intact. No prevertebral compartment hematoma. Decreased central spinal canal diameter and bilateral neuroforamina stenosis at C5-C6. Centrilobular and paraseptal emphysematous changes in the included lungs. Tympanic cavities and mastoid antrum are aerated. CT/CT cervical spine wo IV con IMPRESSION: No acute fracture or trauma-related listhesis. Spondylosis, C5-6 resulting in central spinal canal and bilateral neuroforamina stenosis. Fleischner guidelines were followed. Electronically signed by: David Meraz MD 05/23/2024 10:42 AM EDT
[2024-05-23 08:37] VITALS: BP 166/103; PULSE 97; RESP 18; TEMP 36.2; O2SAT 99; BMI 22.6
--- NOTE | 2024-05-23 09:45 | ED.HEATRA ---
HPI - Head Injury General Chief complaint: Head Injury Stated complaint: fall week ago head inj having headaches Time Seen by Provider: 05/23/24 09:24 Source: patient Mode of arrival: ambulatory Limitations: no limitations History of Present Illness ED Provider: DR. Santiago HPI Narrative: 53-year-old female who fell backward from a high bar stool on Monday 6 days ago patient landed straight on back of her head, patient reported LOC then, complaining of neck pain, left shoulder pain. Patient has since then been having dizziness, lightheadedness, feeling spacey, on dull ache headache. Related Data Home Medications ?Medication ?Instructions ?Recorded ?Confirmed acetaminophen 325 mg capsule 975 mg PO Q12H PRN 11/08/23 amlodipine 10 mg tablet 10 mg PO DAILY 11/08/23 linezolid 600 mg tablet 600 mg PO Q12H 11/08/23 Previous Rx's ?Medication ?Instructions ?Recorded albuterol sulfate 90 mcg/actuation 2 puff inhalation Q4-6H shortness 05/10/23 aerosol inhaler of breath or wheezing 90 days #6.7 grams meloxicam 15 mg tablet 15 mg PO DAILY PRN pain #30 tabs 10/13/23 sertraline 100 mg tablet 100 mg PO DAILY #90 tabs 10/17/23 bisacodyl 5 mg tablet,delayed 20 mg (4 x 5 mg) PO ONCE 1 day #4 10/24/23 release (Dulcolax (bisacodyl)) tabs polyethylene glycol 3350 17 238 g PO ONCE 1 day #238 grams 10/24/23 gram/dose oral powder (Miralax) bupropion HCl 300 mg 24 hr tablet, 300 mg PO DAILY #90 tabs 11/07/23 extended release Allergies Allergy/AdvReac Type Severity Reaction Status Date / Time No Known Allergies Allergy Verified 05/23/24 08:39 Review of Systems Review of Systems: All other systems are reviewed and are negative Constitutional: Reports as per HPI and Reports no additional constitutional complaints Eyes: Reports as per HPI and Reports no additional eye complaints Reports system reviewed and no additional complaints, except as documented Cardiovascular: Reports as per HPI and Reports no additional cardiovascular complaints Respiratory: Reports as per HPI and Reports no additional respiratory complaints Gastrointestinal: Reports as per HPI and Reports no additional gastrointestinal complaints Genitourinary: Reports no additional female genitourinary complaints Musculoskeletal: Reports no additional musculoskeletal complaints Skin/Breast: Reports system reviewed and no additional complaints, except as docu Psychiatric: Reports no additional psychiatric complaints Endocrine: Reports no additional endocrine complaints Hematologic/Lymphatic: Reports no additional hematologic/lymphatic complaints Allergic/Immunologic: Reports no additional allergic/immunologic complaints Reports system reviewed and no additional complaints, except as documented and Reports Abnormal speech present [facility] Past Medical History Medical History 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 Mother No problems noted. 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 Blood pressure elevated. Heart rate normal. Respiratory rate normal. Temperature normal. Oxygen saturation normal. Appearance: Alert. Oriented X3. No acute distress. Head: Normal external exam. Normocephalic. Atraumatic. No Velez signs noted. No raccoon eyes noted Eyes: PERRLA. EOMI. Conjunctiva and sclera normal. Eyelids normal. ENT: TM's Normal. Pharynx normal. Uvula midline. Moist mucous membranes. No trismus noted. No drooling noted. No muffled voice noted. Neck: Normal inspection. Neck supple. FROM. No adenopathy. Thyroid Normal. No meningeal signs. No neck mass noted. CVS: Normal heart rate and rhythm. Heart sound normal. No murmurs noted. Pulses normal throughout. Respiratory: No respiratory distress. Painless inspiration. Breath sounds normal. No wheezes/rales/rhonchi noted. Chest nontender. No accessory muscle usage noted or decreased air movement noted. Abdomen: Soft and nontender. Bowel sounds normal in all 4 quadrants. No distention noted. No organomegaly noted. No visible injury noted. Back: No CVA tenderness. Full range of motion noted. Skin: Skin warm and dry. Normal skin color. Normal skin turgor. No rashes/lesions/lacerations noted. Extremities: No lower extremity edema. Extremities exhibit normal range of motion. Extremities nontender. Neuro: Mental status: Normal attention, orientation, memory, and affect. GCS 15. Cranial nerves: Pupils are equal, round and reactive to light, EOMI, visual wagner are fall, face is symmetric, facial sensations are normal. Motor examination normal muscle tone, strength to 4 extremities. DTR are +2, planter's are flexor. Sensory exam; normal coordination, no ataxia, gait stable. Cerebellar exam: Epgurr-sh-rexo and gamx-lk-axps is normal. Extrapyramidal system: No tremors, no rigidity with normal facial expressions. Pronator drift not present Course Reevaluation(s) Reevaluation #1: 53-year-old female who sustained fall and head injury a week ago, patient now with presenting with postconcussion syndrome. Negative head CT, negative neuro exam. Time: 11:00 Medical Decision Making Differential Diagnosis Differential Diagnoses: The differential diagnosis associated with the presentation includes (Postconcussion syndrome, intracranial bleed, cervical spine injury, left shoulder injury.) Admission/Observation Consideration of admission/observation: Escalation of care including admission/observation considered Independent Interpretation I performed an independent interpretation of an: Plain X-Ray (Left shoulder x-ray: No fracture, no dislocation.) and CT Scan (Head/C-spine CT: No acute pathology.) Radiology Impression Discussion of test interpretation with radiology: I have reviewed the radiologist's reading. Discharge Plan Discharge Clinical Impression: Post-concussion syndrome, Closed head injury Patient Disposition: Home, Self-Care Instructions: Post Concussion Syndrome (ED) Prescriptions: No Action albuterol sulfate 90 mcg/actuation HFA aerosol inhaler 2 puff inhalation Q4-6H 90 Days Qty: 6.7 1RF sertraline 100 mg tablet 100 mg PO DAILY Qty: 90 3RF bisacodyl [Dulcolax (bisacodyl)] 5 mg tablet,delayed release (DR/EC) 20 mg PO ONCE 1 Days Qty: 4 0RF Rx Instructions: take at noon the day before colonoscopy polyethylene glycol 3350 [Miralax] 17 gram/dose powder 238 g PO ONCE 1 Days Qty: 238 0RF Rx Instructions: Take as directed by mouth the day before your procedure. bupropion HCl 300 mg tablet extended release 24 hr 300 mg PO DAILY Qty: 90 3RF meloxicam 15 mg tablet 15 mg PO DAILY PRN (Reason: pain) Qty: 30 2RF acetaminophen 325 mg capsule 975 mg PO Q12H PRN amlodipine 10 mg tablet 10 mg PO DAILY linezolid 600 mg tablet 600 mg PO Q12H Referrals: Taqueria Morales MD [Primary Care Provider] - Print Language: Israeli
--- NOTE | 2024-05-23 10:58 | PC.NURSE ---
Report received at this time. Taken over care at this time.
[2024-05-23 11:50] VITALS: BP 166/103; PULSE 97; RESP 18; TEMP 36.2; O2SAT 99
[2024-05-23 11:53] VITALS: BP 166/103; PULSE 97; RESP 18; TEMP 36.2; O2SAT 99
== END 2024-05-23 11:53 | disposition home or self-care (01) ==
PROVIDERS: Emergency Provider Emergency Medicine; PCP Internal Medicine
DX: G44.309 Post-traumatic headache, unspecified, not intractable (principal); F07.81 Postconcussional syndrome; S09.90XA Unspecified injury of head, initial encounter; W07.XXXA Fall from chair, initial encounter; Y93.89 Activity, other specified; Y92.511 Restaurant or cafe as the place of occurrence of the external cause; Y99.9 Unspecified external cause status
CPT/HCPCS: 70450; 72125; 73030; 99284

== ENCOUNTER → 2024-05-23 09:37 | Outpatient (BNV) | payer SELFPAY | PROVIDERS: Emergency Provider Emergency Medicine; PCP Internal Medicine; Visit Provider Radiology Diagnostic Radiology | DX: M47.812 Spondylosis without myelopathy or radiculopathy, cervical region (principal); M25.512 Pain in left shoulder; J32.0 Chronic maxillary sinusitis | CPT/HCPCS: 70450; 72125; 73030 ==

== ENCOUNTER 2024-06-19 08:42 | Outpatient (AMB) | payer OTHER, SELFPAY ==
[2024-06-19 09:16] VITALS: BP 124/80; PULSE 91; TEMP 36.3; O2SAT 98; BMI 23.3
--- NOTE | 2024-06-19 09:16 | A.OFFPC_ITS ---
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 Required: No Accompanied by: Self / Same As Patient Allergies No Known Allergies Allergy (Verified 06/19/24 09:17) Medication List - Last Reconciled 06/19/24 by KAY Costa acetaminophen 975 mg PO Q12H PRN albuterol sulfate 90 mcg/actuation 2 puffs inhalation Q4-6H 90 days bisacodyl (Dulcolax (bisacodyl)) 20 mg (4 x 5 mg) PO ONCE 1 day bupropion HCl XL 300 mg PO DAILY ibuprofen 800 mg PO Q8H PRN melatonin 5 mg PO BEDTIME methocarbamol 750 mg PO Q8H montelukast (Singulair) 10 mg PO BEDTIME nicotine 1 patch transdermal Q24H nicotine 1 patch transdermal Q24H sertraline 100 mg PO DAILY Tobacco use date assessed: 06/19/24 Dental Screening Dental Screen Date: 06/19/24 Did you have a dental visit in the last 12 months?: Yes Did you have a dental problem in the last 6 months where you did not have access to dental care?: No HPI HPI Comments History of Present Illness Details History of Present Illness PT presents to the office for routine physical. In addition wishes to discuss acute complaints and chronic issues. The patient is a 53-year-old female presenting with multiple health concerns addressed during the wellness visit. She experiences difficulty sleeping at night, possibly linked to perimenopausal changes, including irregular periods due to Mirena, hot flashes, and associated nocturnal sweating. Mild incontinence occurs, particularly with laughter or sneezing. There were no treatment attempts reported for these symptoms. Recent allergy-related issues include postnasal drip leading to a cough, aggravated by seasonal changes, and exacerbations causing an increase in albut macario inhaler use. She has not been using antihistamines or nasal sprays. For urinary concerns, the patient describes stress urinary incontinence and suspects a urinary tract infection, reporting occasional burning upon urination and urinary retention. Pyridium is used but no antibiotic. Hip arthralgia was noted, presenting with clicking sounds or sensation of the hip locking induced by certain movements, observed for about a month. The patient, with a known asthma history, uses an albuterol inhaler almost daily due to allergies and expresses a desire to cease smoking, having reduced smoking from a whole to a half-pack daily, potentially using nicotine patches. She has cervical tension noted around the neck and shoulder region due to past slipped disc issues, exacerbated by recent physical activity. Prior use of ibuprofen was effective, though she currently lacks an analgesic supply. Health Maintenance - Discussed colonoscopy scheduling with gastroenterology due to insurance [employer]. - Reviewed mammogram status; completed w ith benign results. - Confirmed recent tetanus booster recei karlo in wound clinic. - Recommended lifestyle modifications co ncerning smoking cessation and possible use of nicotine patches. - Discussed weight management, diet, and decreasing alcohol intake as precautionary health measures. - Addressed usage of melatonin for sleep aid and Zoloft timing for insomnia assistance. Social History - Smokes approximately half a pack of ci garettes daily, down from a full pack, and actively working on cessation. - Occasional cannabis use, with preferen ce for self-cultivated plants. - Alcohol consumption includes occasiona l beers when performing yard work and sporadic wine or cocktails a few times per week. - Previously employed but lost insurance coverage; now providing insurance. - Engages in yard work, which caused rec ent neck and shoulder strain. Review of Systems - General: Denies fever. - Head: Denies headaches. - Eyes: Denies vision changes. - Ears: Denies pain. - Nose: Reports postnasal drip. - Mouth/Throat: Denies sore throat. - Respiratory: Reports cough; denies beryn st pain or significant exertional dyspnea. - Cardiovascular: Denies palpitations. - Gastrointestinal: Reports bowel moveme nts about four times weekly. - Genitourinary: Reports urinary inconti nence and suspected UTI. - Musculoskeletal: Reports hip arthralgi a with clicking. - Neurological: Denies snoring or apneic episodes. - Psychiatric: Denies mood disorders; re ports insomnia possibly linked to Zoloft timing. Physical Exam - Vitals- Blood pressure assessed with s reyna removed for accurate measurement. - General- Awake and alert, no apparent distress - Normocephalic, atraumatic - Eyes- PERRLA, red reflex present - Ears- external ears normal, canals gayle ar. Tympanic membranes were noted to be pearly calderon with good cone of light, intact without effusion. - Nose- septum midline - Neck- normal inspection, trachea midli ne. Thyroid symmetric without palpable nodules. No adenopathy - Respiratory- Lungs auscultated clear b ilaterally without wheezing. - Cardiovascular- RRR, S1S2, no murmurs; radial pulses bilaterally strong and equal. - GI- bowel sounds x4, nontender to palp ation, no guarding or rebound - - deferred - Extremities- no swelling or calf tende rness - Musculoskeletal- Full range of motion noted in shoulders without noted pathology. R hip- no ttp, full ROM with flexion and extension as well as internal and external rotation - Neurological- Strength normal in both upper and lower extremities. A&O x 3, sensation preserved, CN II-XII in tact. 2+ patellar reflexes - Psych- mood and affect appropriate - Skin- Warm/dry. No atypical lesions, r ashes - Limitations- none observed Results Reviewed barry Plan Sleep disturbances will be addressed by adjusting the timing of sertraline, adding melatonin supplementation as needed. Perimenopausal symptoms will be managed with black cohosh. Allergy management includes Flonase and antihistamines. Kegel exercises remain primary management for stress incontinence, with possible pelvic floor therapy referral if no improvements. Monitor urinary symptoms for any ongoing or worsening dysuria and increased urinary frequency, fevers, or severe abd/flank pain. Can continue Pyridium. Hip arthralgia will be evaluated and managed upon observation- xray ordered. Recommend ibuprofen. Will consider orthopedic referral. Nicotine dependence addressed with 14 mg nicotine patches With step-down therapy to 7 mg after 1 month. For cervical tension, ibuprofen, and muscle relaxant are provided. Scheduled follow-up for colonoscopy due to insurance coverage changes. Baseline labs to be executed. Follow up in six months. Patient was informed and verbally consented to the use of an ambient scribe for clinic note documentation during this visit. Discussion Notes I thoroughly discussed the patient's sleep disturbance management options, recommending trying black cohosh for menopausal symptoms and adjusting sertraline intake to improve sleep. Allergy management advice included the use of Flonase and antihistamines like Zyrtec or Claritin. I emphasized the importance of Kegel exercises for stress urinary incontinence, explained the rationale for using nicotine patches for smoking cessation, detailed avoiding concurrent patch use with smoking, and highlighted eventual titration to a lower patch dose. Monitoring of UTI symptoms was advised with clear return precautions given. Provided an overview for managing cervical tension with ibuprofen and a potential muscle relaxant. Discussed the plan for asthma management with Singulair addition to reduce albuterol reliance. Reiterated test and follow-up plans, ensuring the patient understands the strategies discussed, and instructed her on potential signs demanding earlier evaluation. Patient Instructions - Take sertraline earlier in the day wit h food. - Try black cohosh for hot flashes. - Use Flonase and antihistamines like Cl aritin or Zyrtec for allergies. - Continue with Kegel exercises to impro ve urinary control. - Watch for worsening symptoms of UTI an d seek care if necessary. - Use a 14 mg nicotine patch but do not smoke while using it. - Use prescribed ibuprofen for pain reli ef as needed. - Schedule and attend a follow-up appoin tment in six months, or sooner if symptoms worsen. - Get basic lab tests done today. - Attend your scheduled colonoscopy. - Maintain a healthy diet, exercise regu larly, and moderate alcohol intake. 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 Mother No problems noted. 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 1. Little interest or pleasure in doing things: not at all 2. Feeling down, depressed, or hopeless: several days 3. Trouble falling or staying asleep, or sleeping too much: not at all 5. Poor appetite or overeating: not at all 6. Feeling bad about yourself - or that you are a failure or have let yourself or your family down: not at all 7. Trouble concentrating on things, such as reading the newspaper or watching television: not at all 8. Moving or speaking so slowly that other people could have noticed. Or the opposite - being so fidgety or restless that you have been moving around a lot more than usual: not at all 9. Thoughts that you would be better off or of hurting yourself in some way: not at all Source: Developed by Drs. Sony Foy, Serena Ramsay, Josue Leon and colleagues, with an educational juan ramon from [employer]. Thrive Questionnaire Date Thrive assessed: 06/19/24 I am a: Patient Within the past 12 months, did the food you bought not last and you didn't have the money to get more?: Never true Within the past 12 months, did you worry whether your food would run out before you got money to buy more?: Never true Do you have trouble paying for medicines?: No Do you have trouble getting transportation to medical appointments?: No Do you have trouble paying your heating and electricity bill?: No Do you have trouble taking care of your child, family member or friend?: No Do you have trouble with day-to-day activities such as bathing, preparing meals, shopping, managing finances, etc.?: No Are you currently unemployed and looking for a job?: No Are you interested in more education?: No THRIVE Score: 0 AUDIT C Alcohol Use Questionnaire (AUDIT-C) 1. How often do you have a drink containing alcohol?: Monthly or less 2. How many drinks containing alcohol do you have on a typical day when you are drinking?: 1 or 2 3. How often do you have six or more drinks on one occasion?: Less than monthly Total Score: 2 ROBIN-7 AMB Questionnaire ROBIN-7 Date ROBIN - 7 assessed: 06/19/24 Feeling nervous, anxious, or on edge: 1 = Several days Not being able to stop or control worryin = Not at all Worrying too much about different things: 0 = Not at all Trouble relaxin = Not at all Being so restless that it is hard to sit still: 0 = Not at all Becoming easily annoyed or irritable: 0 = Not at all Feeling afraid as if something awful might happen: 0 = Not at all Total ROBIN-7 score (0-4 normal; 5-9 mild; 10-14 moderate; 15-21 severe): 1 Source: Developed by Drs. Sony Foy, Serena Ramsay, Josue Leon and colleagues, with an educational juan ramon from [employer]. Physical exam (Primary Care) Vital Signs: Last Vital Signs Temp 97.4 F 06/19/24 09:16 Pulse 91 06/19/24 09:16 BP 124/80 06/19/24 09:16 Pulse Ox 98 06/19/24 09:16 Oxygen Delivery Method Room Air 06/19/24 09:16 BMI result Body Mass Index 23.3 Tobacco/Smoking Status: Tobacco use Status Tobacco use date assessed 06/19/24 06/19/24 09:25 Patient Tobacco Use Status Former Tobacco user 06/19/24 09:25 Tobacco use type Cigarette 06/19/24 09:25 e-Cigarette/Vaping Use Former Use 06/19/24 09:27 Thrive Assessment: Date of Thrive Assessment Date Thrive assessed 06/19/24 06/19/24 09:25 Coding Level of Care Code Est Pt Level 4 (08142) Est Pt Prev Care 40-64y(68841) Diagnoses Major depression in partial remission F32.4 Routine medical exam Z00.00 Tobacco use disorder F17.200 HTN (hypertension) I10 Right hip pain M25.551 Cervicalgia M54.2 Mild asthma with allergic rhinitis J45.909 Assessment & Plan Assessment & Plan (1) Major depression in partial remission: Code(s): F32.4 - Major depressive disorder, single episode, in partial remission Category: Medical Plan: Stable. Recommend taking Zoloft and bupropion in the morning with food so as not to disrupt sleep (2) Routine medical exam: Code(s): Z00.00 - Encounter for general adult medical examination without abnormal findings Category: Medical Plan: Continue with health maintenance screenings. Recommend smoking cessation and ongoing healthy diet and exercise (3) Tobacco use disorder: Code(s): F17.200 - Nicotine dependence, unspecified, uncomplicated Category: Medical Plan: Cessation advised. Patches ordered (4) HTN (hypertension): Code(s): I10 - Essential (primary) hypertension Category: Medical Plan: Blood pressure controlled. Continue current therapies (5) Right hip pain: Code(s): M25.551 - Pain in right hip Category: Medical Plan: X-ray ordered to evaluate osteoarthritis. Continue with ibuprofen and Tylenol (6) Cervicalgia: Code(s): M54.2 - Cervicalgia Category: Medical Plan: Continue with ibuprofen and Tylenol. Robaxin added (7) Mild asthma with allergic rhinitis: Code(s): J45.909 - Unspecified asthma, uncomplicated Category: Medical Plan: Singulair added. Continue with antihistamines for allergy management. Albuterol as needed Plan Follow-up in 6 months. Labs ordered for today and advised to complete labs prior to next visit. Orders: Orders Hemoglobin A1c Today F17.200 - Nicotine dependence, unspecified, uncomplicated, F32.4 - Major depressive disorder, single episode, in partial remission, I10 - Essential (primary) hypertension, I83.11 - Varicose veins of right lower extremity with inflammation, I83.12 - Varicose veins of left lower extremity with inflammation, Z00.00 - Encounter for general adult medical examination without abnormal findings Liver Panel Today I10 - Essential (primary) hypertension, Z00.00 - Encounter for general adult medical examination without abnormal findings Basic Metabolic Panel Today I10 - Essential (primary) hypertension, Z00.00 - Encounter for general adult medical examination without abnormal findings Lipid Panel Today I10 - Essential (primary) hypertension, Z00.00 - Encounter f or general adult medical examination without abnormal findings TSH reflex Free T4 Today I10 - Essential (primary) hypertension, Z00.00 - Encounter for general adult medical examination without abnormal findings Vitamin D 25-OH Total Today I10 - Essential (primary) hypertension, Z00.00 - Encounter for general adult medical examination without abnormal findings XR hip RT min 2V Today F17.200 - Nicotine dependence, unspecified, uncomplicated, I10 - Essential (primary) hypertension, M25.551 - Pain in right hip, M54.2 - Cervicalgia Referrals Gastroenterology Referral Z12.11 - Encounter for screening for malignant neoplasm of colon Medications: New nicotine 1 patch transdermal Q24H 28 ea 0RF methocarbamol 750 mg PO Q8H 90 tabs 0RF muscle spasm nicotine 1 patch transdermal Q24H 14 ea 0RF montelukast (Singulair) 10 mg PO BEDTIME 90 tabs 1RF melatonin 5 mg PO BEDTIME 90 caps 1RF ibuprofen 800 mg PO Q8H PRN 90 tabs 1RF pain Refilled bisacodyl (Dulcolax (bisacodyl)) take at noon the day before colonoscopy 20 mg (4 x 5 mg) PO ONCE 4 tabs 0RF 1 day sertraline 100 mg PO DAILY 90 tabs 1RF albuterol sulfate 90 mcg/actuation 2 puffs inhalation Q4-6H 8.5 grams 1RF shortness of breath or wheezing 90 days R05 - Cough bupropion HCl XL 300 mg PO DAILY 90 tabs 3RF
== END 2024-06-19 09:55 | disposition home or self-care (01) ==
LOC: HO.HMCHD 08:43
PROVIDERS: PCP Internal Medicine; Visit Provider Internal Medicine
DX: Z00.00 Encounter for general adult medical examination without abnormal findings (principal); M25.551 Pain in right hip; M54.2 Cervicalgia; F32.4 Major depressive disorder, single episode, in partial remission; F17.200 Nicotine dependence, unspecified, uncomplicated; I10 Essential (primary) hypertension; J45.909 Unspecified asthma, uncomplicated

== ENCOUNTER → 2024-06-19 08:42 | Outpatient (BNVA) | payer OTHER, SELFPAY | PROVIDERS: PCP Internal Medicine; Visit Provider Internal Medicine ==

== ENCOUNTER 2024-08-15 09:30 | Emergency (ER) | payer OTHER, SELFPAY ==
--- NOTE | ~2024-08-15 | US_ITS ---
EXAMINATION: US ABDOMEN LIMITED HISTORY: elevated LFTs TECHNIQUE: Real-time grayscale ultrasound imaging of the right upper quadrant was performed and images were reviewed. COMPARISON: There are no prior studies available for comparison. FINDINGS: Liver: The right lobe of the liver measures 15.3 cm in size. The left lobe of the liver measures 9.7 cm in size. The liver demonstrates heterogeneous increased echotexture, consistent with steatosis. No focal mass or intrahepatic biliary ductal dilatation is identified. There is normal hepatopedal flow in the portal vein. Gallbladder and biliary tree: The gallbladder is unremarkable, without evidence of calculi, wall thickening, or pericholecystic fluid. There is no sonographic Willis sign. The common bile duct is normal in caliber measuring 6 mm. Right Kidney: The right kidney measures 11.3 cm in length. The right kidney is unremarkable, without evidence of masses, hydronephrosis, or calculi. Pancreas: The pancreatic head, neck, and body are unremarkable. The pancreatic tail is obscured by bowel gas. Abdominal aorta and inferior vena cava: The visualized portions of the abdominal aorta and inferior vena cava are normal in caliber. There is no free fluid in the right upper quadrant. US/US abdomen limited IMPRESSION: Hepatic steatosis. Otherwise unremarkable right upper quadrant ultrasound. Electronically signed by: Sony Meier MD 08/15/2024 12:13 PM EDT
[2024-08-15 09:33] VITALS: BP 154/112; PULSE 133; RESP 18; TEMP 36.9; O2SAT 100; BMI 23.9
--- NOTE | 2024-08-15 09:35 | ECG_ITS ---
Test Reason : tachy Blood Pressure : */* mmHG Vent. Rate : 127 BPM Atrial Rate : 127 BPM P-R Int : 130 ms QRS Dur : 72 ms QT Int : 318 ms P-R-T Axes : 82 65 74 degrees QTcB Int : 462 ms Sinus tachycardia Biatrial enlargement Nonspecific ST abnormality Abnormal ECG No previous ECGs available Referred By: Generic ED Physician Electronically Signed By: JONATHAN ROYAL
[2024-08-15] MEDS: Lactated Ringers 1,000 ML 999 ML IV ×2 (09:58→13:46)
--- NOTE | 2024-08-15 09:58 | ED.NAVMDI ---
HPI - Nausea/Vomiting/Diarrhea General Chief complaint: Nausea/Vomiting/Diarrhea Stated complaint: vomiting blood Time Seen by Provider: 08/15/24 09:47 Source: patient Mode of arrival: ambulatory Limitations: no limitations History of Present Illness ED Provider: Magnolia Yo PA-C HPI Narrative: 53 yo female with history of depression/anxiety, active smoker who presents to the ER for evaluation of bloody vomit. She states she started vomiting yesterday morning, initially food contents and bile. She states this morning the contents turned dark brown and then pink tinged. She states she has vomited every time she tries to take oral fluids. She denies any nausea unless she just drank something. She has no associated abdominal pain. No fevers, chills. She had a normal bowel movement this morning that was dark brown. She states she intermittently gets darker bowel movements. She has not on anticoagulation. Denies history of GI bleed. She has never had a colonoscopy. She takes regular NSAIDs due to chronic shoulder pain. She is an active smoker. She states she socially drinks alcohol, 3-4 glasses of wine per week. She states she has cut back recently, about 3 months ago she was a regular vodka drinker, daily. She denies any chest pain, shortness of breath, weakness, dizziness MD elicited complaint: vomiting Onset (ago): day(s) Description of vomiting: bloody and coffee grounds Associated nausea: No Associated abdominal pain: No Location of pain: none Exacerbating factors: eating Associated symptoms: nausea/vomiting Related Data Home Medications ?Medication ?Instructions ?Recorded ?Confirmed acetaminophen 325 mg capsule 975 mg PO Q12H PRN 11/08/23 Previous Rx's ?Medication ?Instructions ?Recorded albuterol sulfate 90 mcg/actuation 2 puff inhalation Q4-6H shortness 06/19/24 aerosol inhaler of breath or wheezing 90 days #8.5 grams bisacodyl 5 mg tablet,delayed 20 mg (4 x 5 mg) PO ONCE 1 day #4 06/19/24 release (Dulcolax (bisacodyl)) tabs bupropion HCl 300 mg 24 hr tablet, 300 mg PO DAILY #90 tabs 06/19/24 extended release ibuprofen 800 mg tablet 800 mg PO Q8H PRN pain #90 tabs 06/19/24 melatonin 5 mg capsule 5 mg PO BEDTIME #90 caps 06/19/24 montelukast 10 mg tablet 10 mg PO BEDTIME #90 tabs 06/19/24 (Singulair) nicotine 14 mg/24 hr daily 1 patch transdermal Q24H #28 ea 06/19/24 transdermal patch nicotine 7 mg/24 hr daily 1 patch transdermal Q24H #14 ea 06/19/24 transdermal patch sertraline 100 mg tablet 100 mg PO DAILY #90 tabs 06/19/24 tizanidine 4 mg tablet 4 mg PO Q8H PRN muscle spasticity 06/24/24 #30 tabs albuterol sulfate 90 mcg/actuation 2 puff inhalation Q6H PRN 08/15/24 aerosol inhaler (Ventolin HFA) shortness of breath or wheezing #6.7 grams ondansetron 4 mg disintegrating 4 mg PO Q8H PRN nausea and 08/15/24 tablet vomiting #10 tabs pantoprazole 40 mg tablet,delayed 40 mg PO DAILY #30 tabs 08/15/24 release (Protonix) Allergies Allergy/AdvReac Type Severity Reaction Status Date / Time No Known Allergies Allergy Verified 08/15/24 09:35 Review of Systems Review of Systems: Yes all other systems are reviewed and are negative Gastrointestinal: Gastrointestinal: Denies nausea PMFSH Past Medical History Medical History (Updated 08/15/24 @ 14:01 by KAY Ghotra) HTN (hypertension) 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 Mother No problems noted. 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 Oriented X3. No acute distress. Head: normocephalic, atraumatic. Eyes: Pupils equal, round and reactive to light. no scleral icterus ENT: Pharynx normal. No tonsillar swelling or exudate. Neck: Normal inspection. Neck supple. CVS: Normal heart rate and rhythm. Pulses normal. Respiratory: No respiratory distress. Breath sounds normal. Abdomen: Soft and nontender. negative Willis's sign +BS x4 Skin: Skin warm and dry. Normal skin color. Normal skin turgor. No rashes. hyperpigmented skin throughout Extremities: No lower extremity edema. No joint swelling. Neuro/psych: Oriented X 3. No motor deficit. No sensory deficit. CN II-XII intact. Normal speech and cognition. Medications Administered Discontinued Medications Generic Name Dose Route Start Last Admin Trade Name Freq PRN Reason Stop Dose Admin Lactated Ringer's 1,000 mls @ 999 mls/hr 08/15/24 10:00 08/15/24 11:03 Lr IV 08/15/24 11:00 Infused .Q1H1M GREGORIO Infusion Lactated Ringer's 1,000 mls @ 999 mls/hr 08/15/24 13:45 08/15/24 14:50 Lr IV 08/15/24 14:45 Infused .Q1H1M GREGORIO Infusion Ondansetron HCl 4 mg 08/15/24 09:58 08/15/24 10:08 Ondansetron Hcl 4 Mg/2 Ml Vial IVPUSH 08/15/24 09:59 4 mg ONCE ONE Administration Pantoprazole Sodium 40 mg 08/15/24 09:58 08/15/24 10:08 Pantoprazole Sodium 40 Mg/10 Ml Vial IVPUSH 08/15/24 09:59 40 mg ONCE ONE Administration Medical Decision Making Medical Decision Making [facility] Narrative: 53-year-old female with history of hypertension, asthma, alcohol use, anxiety, depression who is presenting to the ER for evaluation of bloody vomitus. Last time she vomited was 2 hours prior to arrival. No associated abdominal pain. Heart rate in the 120s on arrival. She denies any pain. Labs show a leukocytosis of 15,000, likely reactive due to vomiting. She has an elevated hemoglobin of 16.6. Likely due to hemoconcentration and dehydration. She was given 1 L of IV fluids, Along with Zofran and Protonix. Concern for upper GI bleed. Lab workup showing elevated LFTs including bilirubin. Her coags are normal. She denies history of any abnormal liver function. Adamantly denies against daily alcohol use. ARYAN with yellow heme-positive stool Heart rates improved after IV fluids. She has had no episodes of vomiting here. She is tolerating p.o.. Ultrasound of the abdomen showing hepatic steatosis. No evidence of obstruction or infection. we discussed the concern for upper GI bleeding with possible gastritis versus peptic ulcer disease, we also discussed concern for abnormal liver function and the importance of abstaining from alcohol. She expressed understanding. She does not want to be admitted to the hospital. She has a primary care doctor who she can follow up with next week for repeat lab work. Will start her on a PPI once a day, discussed diet for gastritis and peptic ulcer disease. Advised to return to the ER if she develops pravin hematemesis or coffee-ground emesis. Patient agrees with plan all questions were answered. Comfortable discharge home Differential Diagnosis Differential Diagnoses: The differential diagnosis associated with the presentation includes upper GI bleed, Boerhaave syndrome, Lydia-Glaser tear, alcoholic hepatitis, viral hepatitis, alcoholic liver disease, fatty liver, hepatotoxicity Admission/Observation Consideration of admission/observation: Escalation of care including admission/observation considered Lab Data [facility] Lab Attestation statement: I reviewed the patient's lab results. leukocytosis, no anemia, normal coags, elevated liver function tests 08/15/24 09:57 08/15/24 09:57 Labs: Lab Results 08/15/24 08/15/24 08/15/24 Range/Units 09:57 10:11 12:33 WBC 15.2 H (4.8-10.8) X10*3/uL RBC 4.22 (4.20-5.50) X10*6/uL Hgb 16.6 H (12.0-16.0) g/dl Hct 44.8 (37.0-47.0) % MCV 106.2 H (80.0-98.0) fL MCH 39.3 H (27.0-33.0) pg MCHC 37.1 H (31.0-35.0) g/dl RDW 14.3 (11.0-16.0) % Plt Count 331 (160-400) X10*3/uL MPV 9.0 L (9.4-12.3) fL Immature Gran % (Auto) 0.8 H (0.0-0.4) % Neut % (Auto) 80.4 H (45-73) % Lymph % (Auto) 12.8 L (20-40) % [place] % (Auto) 4.4 (2-11) % Eos % (Auto) 0.9 (0-4) % Baso % (Auto) 0.7 (0-2) % Lymph # (Auto) 1.9 (1.2-4.9) X10*3/uL [place] # (Auto) 0.7 (0.1-1.2) X10*3/uL Eos # (Auto) 0.1 (0.0-0.4) X10*3/uL Baso # (Auto) 0.1 (0.0-0.2) X10*3/uL Abs Immat Gran (auto) 0.12 H (0.00-0.03) X10*3/uL Absolute Neuts (auto) 12.2 H (2.0-8.3) x10*3/uL Absolute Nucleated RBC 0.000 (0.0-0.012) X10*3/uL Nucleated RBC % (auto) 0.0 (0.0-0.2) /100WBC PT 11.5 (10.9-12.4) SEC INR 1.0 (0.9-1.1) APTT 28.5 (26.0-36.8) SEC Sodium 136 (135-145) mmol/L Potassium 3.8 (3.3-5.1) mmol/L Chloride 96 (96-108) mmol/L Carbon Dioxide 28 (22-29) mmol/L Anion Gap 16 (12-20) BUN 10 (9-16) mg/dL Creatinine 0.68 (0.5-1.4) mg/dL Estim Creat Clear Calc 98.7 Estimated GFR > 60 Random Glucose 97 (60-115) mg/dL Calcium 10.2 (8.4-10.2) mg/dL Magnesium 1.6 (1.6-2.6) mg/dL Total Bilirubin 3.3 H (0.0-1.0) mg/dL Direct Bilirubin 0.6 H (0.0-0.5) mg/dL AST 39 H (5-31) U/L ALT 32 H (0-31) U/L Alkaline Phosphatase 155 H (39-117) U/L Total Protein 6.9 (6.5-8.0) g/dL Albumin 4.4 (3.5-5.0) g/dL Lipase 19 (8-78) U/L Urine Color Dark Yellow Urine Appearance Cloudy Urine pH 8.5 (5.0-9.0) Ur Specific [place] 1.020 (1.005-1.025) Urine Protein 30 (1+) H (Neg-Trace) mg/dL Urine Glucose (UA) Negative (Negative) mg/dL Urine Ketones 15 (Negative) mg/dL Urine Blood Negative (Negative) Urine Nitrite Positive H (Negative) Ur Leukocyte Esterase Small (1+) H (Negative) Urine RBC 0-2 (0-2) /HPF Urine WBC 0-5 (0-5) /HPF Ur Squamous Epith Cells 0-2 (0-2) /HPF Urine Bacteria 4+ (None Seen) Hyaline Casts 3-5 (0-2) /LPF Stool Occult Blood POSITIVE (NEGATIVE) Independent Interpretation I performed an independent interpretation of an: EKG and Ultrasound Interpretation: U/S - no GB wall thickening, no stones EKG - sinus tachycardia, ventricular rate 127 beats per minute, normal QTC, normal QRS, no ST segment elevations or depressions Radiology Impression Discussion of test interpretation with radiology: I have reviewed the radiologist's reading. Radiologist Impression: Hepatic steatosis. Otherwise unremarkable right upper quadrant ultrasound. Prescription Management I considered prescription management with: Pain Medication and Other ( antiemetic, ppi) Chronic Conditions Patient?s care impacted by: Hypertension and Other ( alcohol use) Critical Care Time Critical Care Time Critical Care Time: Yes Total Critical Care Time: 31 Attestation: I have personally provided critical care time exclusive of time spent on separately billable procedures. Time includes review of lab data, radiology results, bedside re-evaluation of vital signs after IV fluid boluses, and monitoring for potential decompensation. Intervention performed as documented. Discharge Plan Discharge Clinical Impression: Elevated liver enzymes Vomiting Qualifiers: Vomiting type: unspecified Nausea presence: without nausea Qualified Code(s): R11.11 - Vomiting without nausea Patient Disposition: Home, Self-Care Instructions: Acute Nausea and Vomiting (DC), Transaminitis (ED) Additional Instructions: Your blood counts today were normal, no signs of blood loss or anemia Your liver enzymes and bilirubin were elevated (bilirubin is 3). Ultrasound showed fatty liver changes Recommend FULLY ABSTAINING from alcohol. Follow up with your PCP for repeat liver function tests next week. Take the prescribed medication once per day for the next 2-4 weeks to decrease the acid in your stomach. Avoid spicy and acidic foods. Follow up with GI - call for an appointment - you need an endoscopy and colonoscopy Follow up with your PCP as soon as possible If you develop new or worsening symptoms call 911 or come back to the ER for further evaluation. Prescriptions: New pantoprazole [Protonix] 40 mg tablet,delayed release (DR/EC) 40 mg PO DAILY Qty: 30 0RF ondansetron 4 mg tablet,disintegrating 4 mg PO Q8H PRN (Reason: nausea and vomiting) Qty: 10 0RF albuterol sulfate [Ventolin HFA] 90 mcg/actuation HFA aerosol inhaler 2 puff inhalation Q6H PRN (Reason: shortness of breath or wheezing) Qty: 6.7 0RF No Action tizanidine 4 mg tablet 4 mg PO Q8H PRN (Reason: muscle spasticity) Qty: 30 0RF nicotine 14 mg/24 hr patch 24 hour 1 patch transdermal Q24H Qty: 28 0RF nicotine 7 mg/24 hr patch 24 hour 1 patch transdermal Q24H Qty: 14 0RF montelukast [Singulair] 10 mg tablet 10 mg PO BEDTIME Qty: 90 1RF melatonin 5 mg capsule 5 mg PO BEDTIME Qty: 90 1RF ibuprofen 800 mg tablet 800 mg PO Q8H PRN (Reason: pain) Qty: 90 1RF albuterol sulfate 90 mcg/actuation HFA aerosol inhaler 2 puff inhalation Q4-6H 90 Days Qty: 8.5 1RF bisacodyl [Dulcolax (bisacodyl)] 5 mg tablet,delayed release (DR/EC) 20 mg PO ONCE 1 Days Qty: 4 0RF Rx Instructions: take at noon the day before colonoscopy bupropion HCl 300 mg tablet extended release 24 hr 300 mg PO DAILY Qty: 90 3RF sertraline 100 mg tablet 100 mg PO DAILY Qty: 90 1RF acetaminophen 325 mg capsule 975 mg PO Q12H PRN Referrals: [facility] [place] [facility] [Provider Group, Gastroenterology] Taqueria Morales MD [Primary Care Provider, Internal Medicine] Interventions: ED Discharge Assessment Last Done: 08/15/24 15:15 Discharge Date/Time: 08/15/24 15:18 Print Language: [place]
[2024-08-15 10:04] LABS: MANUAL DIFF FLAG NO
[2024-08-15 10:06] LABS: Basophils Absolute Auto 0.1 X10*3/uL (0.0-0.2); Basophils Percent Auto 0.7 % (0-2); Eosinophils Absolute Auto 0.1 X10*3/uL (0.0-0.4); Eosinophils Percent Auto 0.9 % (0-4); Hematocrit 44.8 % (37.0-47.0); Hemoglobin 16.6 g/dl (12.0-16.0); Imm Gran Abs Auto 0.12 X10*3/uL (0.00-0.03); Imm Gran Pct Auto 0.8 % (0.0-0.4); Lymphocytes Absolute Auto 1.9 X10*3/uL (1.2-4.9); Lymphocytes Percent Auto 12.8 % (20-40); Mean Corpuscular HGB Conc 37.1 g/dl (31.0-35.0); Mean Corpuscular Hemoglobin 39.3 pg (27.0-33.0); Mean Corpuscular Volume 106.2 fL (80.0-98.0); Monocytes Absolute Auto 0.7 X10*3/uL (0.1-1.2); Monocytes Percent Auto 4.4 % (2-11); Neutrophils Absolute Auto 12.2 x10*3/uL (2.0-8.3); Neutrophils Percent Auto 80.4 % (45-73); Platelet Count 331 X10*3/uL (160-400); Red Blood Count 4.22 X10*6/uL (4.20-5.50); Red Cell Distribution Width 14.3 % (11.0-16.0); White Blood Count 15.2 X10*3/uL (4.8-10.8)
[2024-08-15] MEDS: ondansetron HCL 4 MG/2 ML VIAL IVPUSH (10:08)
[2024-08-15] MEDS: Pantoprazole Sodium 40 MG/10 ML VIAL IVPUSH (10:08)
[2024-08-15 10:11] LABS: Prothrombin Time 11.5 SEC (10.9-12.4)
[2024-08-15 10:13] LABS: Partial Thromboplastin Time 28.5 SEC (26.0-36.8)
[2024-08-15 10:19] LABS: OBS Int Ctl Valid YES; OBS1 POSITIVE (NEGATIVE)
[2024-08-15 10:24] LABS: Alanine Aminotransferase 32 U/L (0-31); Albumin Level 4.4 g/dL (3.5-5.0); Alkaline Phosphatase 155 U/L (39-117); Anion Gap 16 (12-20); Aspartate Amino Transferase 39 U/L (5-31); Bilirubin Direct 0.6 mg/dL (0.0-0.5); Bilirubin Total 3.3 mg/dL (0.0-1.0); Blood Urea Nitrogen 10 mg/dL (9-16); Calcium 10.2 mg/dL (8.4-10.2); Carbon Dioxide 28 mmol/L (22-29); Chloride 96 mmol/L (96-108); Creatinine Clr Calc Pharmacy 98.7; Estimated Glomerular Filt Rate > 60; Glucose Random 97 mg/dL (60-115); Lipase 19 U/L (8-78); Magnesium 1.6 mg/dL (1.6-2.6); Potassium 3.8 mmol/L (3.3-5.1); Sodium 136 mmol/L (135-145); Total Protein 6.9 g/dL (6.5-8.0)
[2024-08-15 12:43] VITALS: BP 175/114; PULSE 99; RESP 12; O2SAT 100
[2024-08-15 12:45] LABS: Appearance Urine Cloudy; Color Urine Dark Yellow; Glucose Urine UA Negative (Negative); Leukocyte Esterase Urine Small (1+) (Negative); Nitrite Urine Positive (Negative); PH 8.5 (5.0-9.0); UMIC TRIGGER UACC YES; Urine Blood Negative (Negative); Urine Ketones 15 mg/dL (Negative); Urine Protein 30 (1+) mg/dL (Neg-Trace)
[2024-08-15 12:53] LABS: Bacteria Urine 4+ (None Seen); RBC Urine 0-2 /HPF (0-2); Squamous Epithelial Cell Urine 0-2 /HPF (0-2); UACC Culture Trigger YES; WBC Urine 0-5 /HPF (0-5)
[2024-08-15 14:23] VITALS: BP 157/94; PULSE 95; RESP 19; TEMP 37.1
[2024-08-15 15:15] VITALS: BP 157/94; PULSE 95; RESP 19; TEMP 37.1; O2SAT 99
== END 2024-08-15 15:18 | disposition home or self-care (01) ==
PROVIDERS: Physician Assistant; Emergency Provider Emergency Medicine; PCP Internal Medicine
DX: K92.0 Hematemesis (principal); N39.0 Urinary tract infection, site not specified; B96.20 Unspecified Escherichia coli [E. coli] as the cause of diseases classified elsewhere; R94.5 Abnormal results of liver function studies; R10.2 Pelvic and perineal pain; R00.0 Tachycardia, unspecified; Z79.899 Other long term (current) drug therapy; F17.210 Nicotine dependence, cigarettes, uncomplicated
CPT/HCPCS: 36415; 76705; 80048; 80076; 81001; 82272; 83690; 83735; 85025; 85610; 85730; 87086; 87088; 87186; 93005; 96361; 96374; 96375; 99285; J2405; J2470; J7120

== ENCOUNTER → 2024-08-15 09:35 | Outpatient (BNV) | payer OTHER, SELFPAY | PROVIDERS: Emergency Provider Emergency Medicine; PCP Internal Medicine; Visit Provider Internal Medicine | DX: I51.7 Cardiomegaly (principal); R00.0 Tachycardia, unspecified | CPT/HCPCS: 93010 ==

== ENCOUNTER → 2024-08-15 10:28 | Outpatient (BNV) | payer OTHER, SELFPAY | PROVIDERS: Emergency Provider Emergency Medicine; PCP Internal Medicine; Visit Provider Radiology Diagnostic Radiology | DX: K76.0 Fatty (change of) liver, not elsewhere classified (principal) | CPT/HCPCS: 76705 ==

== ENCOUNTER 2024-08-30 09:39 | Outpatient (AMB) | payer OTHER, SELFPAY ==
[2024-08-30 09:41] VITALS: BP 144/92; PULSE 92; RESP 18; TEMP 36.3; O2SAT 97; BMI 23.3
--- NOTE | 2024-08-30 09:41 | A.OFFPC_ITS ---
Vital Signs 08/30/24 09:41 Height 5 ft 8 in Weight 153 lb BMI 23.3 BP 144/92 H Respiration 18 Pulse 92 Pulse Source Pulse Oximeter Temp 97.3 F Temp Source Temporal Artery Scan Pulse Oximetry (%) 97 Oxygen Delivery Method Room Air Intake Visit Reasons: [facility] [place] 08/15 Vomiting blood Allergies No Known Allergies Allergy (Verified 08/30/24 09:44) Tobacco use date assessed: 08/30/24 Dental Screening Dental Screen Date: 06/19/24 Did you have a dental visit in the last 12 months?: No Did you have a dental problem in the last 6 months where you did not have access to dental care?: No Was dental information given to patient?: Patient has dentist HPI HPI Comments History of Present Illness Details 53 y/o Female patient who [facility]. Pt was admitted at [facility] on 08/15 for an evaluation and treatment of Nausea/vomiting. Pt had abdominal U/S that showed Hepatic Steatosis. There was a concern for GI Bleed due to Bloody vomitus and Dark Stools. Pt was advised to be admitted for further evaluation of GI Bleed but declined admission. Pt socially drinks alc ohol, 3-4 glasses of wine per week. Approximately 3 months ago she was a regular vodka drinker, daily. [facility] Medical History (Updated 08/30/24 @ 09:58 by Sienna Lloyd NP) Nausea and vomiting in adult Hepatic steatosis HTN (hypertension) Varicose 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 Mother No problems noted. 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 1. Little interest or pleasure in doing things: not at all 2. Feeling down, depressed, or hopeless: not at all 3. Trouble falling or staying asleep, or sleeping too much: nearly every day 4. Feeling tired or having little energy: more than half the days 5. Poor appetite or overeating: not at all 6. Feeling bad about yourself - or that you are a failure or have let yourself or your family down: not at all 7. Trouble concentrating on things, such as reading the newspaper or watching television: not at all 8. Moving or speaking so slowly that other people could have noticed. Or the opposite - being so fidgety or restless that you have been moving around a lot more than usual: several days 9. Thoughts that you would be better off or of hurting yourself in some way: not at all Total score: 6 Source: Developed by Drs. Sony Foy, Serena Ramsay, Josue Leon and colleagues, with an educational juan ramon from [employer]. Thrive Questionnaire Date Thrive assessed: 06/19/24 I am a: Patient What is your living situation today?: I have a steady place to live Within the past 12 months, did the food you bought not last and you didn't have the money to get more?: Never true Within the past 12 months, did you worry whether your food would run out before you got money to buy more?: Never true Do you have trouble paying for medicines?: No Do you have trouble getting transportation to medical appointments?: No Do you have trouble paying your heating and electricity bill?: No Do you have trouble taking care of your child, family member or friend?: No Do you have trouble with day-to-day activities such as bathing, preparing meals, shopping, managing finances, etc.?: No Are you currently unemployed and looking for a job?: Yes Are you interested in more education?: Yes Please select the resources that you would like help with: None Currently or been in a relationship where the following occur: No concerns reported and I choose not to answer THRIVE Score: 0 AUDIT C Alcohol Use Questionnaire (AUDIT-C) 1. How often do you have a drink containing alcohol?: Never 3. How often do you have six or more drinks on one occasion?: Never Total Score: 0 ROBIN-7 AMB Questionnaire ROBIN-7 Date ROBIN - 7 assessed: 06/19/24 Feeling nervous, anxious, or on edge: 0 = Not at all Not being able to stop or control worryin = Not at all Worrying too much about different things: 0 = Not at all Trouble relaxin = Several days Being so restless that it is hard to sit still: 1 = Several days Becoming easily annoyed or irritable: 0 = Not at all Feeling afraid as if something awful might happen: 0 = Not at all Total ROBIN-7 score (0-4 normal; 5-9 mild; 10-14 moderate; 15-21 severe): 2 Source: Developed by Drs. Sony Foy, Serena Ramsay, Josue Leon and colleagues, with an educational juan ramon from [employer]. Review of Systems Const All systems reviewed & are unremarkable except as noted in HPI and below Physical exam (Primary Care) Vital Signs: Last Vital Signs Temp 97.3 F 08/30/24 09:41 Pulse 92 08/30/24 09:41 Resp 18 08/30/24 09:41 BP 144/92 H 08/30/24 09:41 Pulse Ox 97 08/30/24 09:41 Oxygen Delivery Method Room Air 08/30/24 09:41 BMI result Body Mass Index 23.3 Tobacco/Smoking Status: Tobacco use Status Tobacco use date assessed 08/30/24 08/30/24 09:46 Patient Tobacco Use Status Current everyday Tobacco 08/30/24 09:46 Tobacco use type Cigarette 08/30/24 09:46 e-Cigarette/Vaping Use Former Use 08/30/24 09:46 PHQ-9: PHQ-9 Score PHQ-9: Total score 6 08/30/24 09:51 Thrive Assessment: Date of Thrive Assessment Date Thrive assessed 06/19/24 08/30/24 09:46 Currently or been in a relationship where the following occur: No concerns reported and I choose not to answer Const General: no acute distress Nutritional Appearance: thin Orientation/consciousness: patient oriented x3 HENMT Head: Yes normocephalic Resp Effort & Inspection: normal respiratory effort Auscultation: clear to auscultation bilaterally Cardio Heart sounds: S1 normal heart sound present and S2 normal heart sound present GI Palpation (GI): Soft to palpation, not firm, nontender, no guarding, not rigid and No hepatosplenomegaly present Auscultation: normal bowel sounds Neuro General: patient oriented x3, gait normal and moves all extremities Coding Level of Care Code Est Pt Level 4 (03766) Diagnoses Hepatic steatosis K76.0 Nausea and vomiting in adult R11.2 Time Spent (min) 20 Assessment & Plan Assessment & Plan (1) Hepatic steatosis: Code(s): K76.0 - Fatty (change of) liver, not elsewhere classified Category: Medical Plan: Will order CMP fasting Labs. Discussed Lifestyle changes Advised to Abstain from Alcohol completely - last drink was 08/15. (2) Nausea and vomiting in adult: Code(s): R11.2 - Nausea with vomiting, unspecified Category: Medical Plan: Resolved. Orders: Orders Comprehensive [place]. Panel Fast Today K76.0 - Fatty (change of) liver, not elsewhere classified, R11.2 - Nausea with vomiting, unspecified
== END 2024-08-30 10:07 | disposition home or self-care (01) ==
LOC: HO.HMCH 09:40
PROVIDERS: PCP Internal Medicine; Visit Provider Nurse Practitioner Family
DX: K76.0 Fatty (change of) liver, not elsewhere classified (principal); R11.2 Nausea with vomiting, unspecified

== ENCOUNTER 2024-10-16 15:32 | Outpatient (AMB) | payer OTHER, SELFPAY ==
--- NOTE | 2024-10-16 15:45 | MHC.PC.OV ---
Vital Signs 10/16/24 15:46 Height 5 ft 8 in Weight 154 lb 2 oz BMI 23.4 BP 140/90 H Blood Pressure Location Lt brachial Position Sitting Pulse 82 Pulse Source Pulse Oximeter Temp 97.1 F Temp Source Temporal Artery Scan Pulse Oximetry (%) 96 Oxygen Delivery Method Room Air Intake Visit Reasons: Med Review - see comments Intake Note: Patient is here to follow up on Med review for Lorazapam. Veterinary Practitioner Required: No Satellite Installer: Not Required per policy Accompanied by: Self / Same As Patient Allergies No Known Allergies Allergy (Verified 10/16/24 15:46) Tobacco use date assessed: 10/16/24 Dental Screening Dental Screen Date: 06/19/24 REPLACED BY [facility] Medical History (Updated 08/30/24 @ 09:58 by Sienna Lloyd NP) Nausea and vomiting in adult Hepatic steatosis HTN (hypertension) Varicose 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 Mother No problems noted. 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 Cognitive needs: No Hearing needs: No Vision needs: Yes (rx glasses) Questionnaire Thrive Questionnaire Date Thrive assessed: 08/30/24 I am a: Patient What is your living situation today?: I have a steady place to live Within the past 12 months, did the food you bought not last and you didn't have the money to get more?: Never true Within the past 12 months, did you worry whether your food would run out before you got money to buy more?: Never true Do you have trouble paying for medicines?: No Do you have trouble getting transportation to medical appointments?: No Do you have trouble paying your heating and electricity bill?: No Do you have trouble taking care of your child, family member or friend?: No Do you have trouble with day-to-day activities such as bathing, preparing meals, shopping, managing finances, etc.?: No Are you currently unemployed and looking for a job?: Yes Are you interested in more education?: Yes Please select the resources that you would like help with: None THRIVE Score: 0 ROBIN-7 AMB Questionnaire ROBIN-7 Date ROBIN - 7 assessed: 06/19/24 Source: Developed by Drs. Sony Foy, Serena Ramsay, Josue Leon and colleagues, with an educational juan ramon from [employer]. Physical exam (Primary Care) Vital Signs: Last Vital Signs Temp 97.1 F 10/16/24 15:46 Pulse 82 10/16/24 15:46 BP 140/90 H 10/16/24 15:46 Pulse Ox 96 10/16/24 15:46 Oxygen Delivery Method Room Air 10/16/24 15:46 BMI result Body Mass Index 23.4 Tobacco/Smoking Status: Tobacco use Status Tobacco use date assessed 10/16/24 10/16/24 15:52 Patient Tobacco Use Status Current someday Tobacco 10/16/24 15:52 Tobacco use type Cigarette 10/16/24 15:52 e-Cigarette/Vaping Use Former Use 10/16/24 15:52 Thrive Assessment: Date of Thrive Assessment Date Thrive assessed 08/30/24 10/16/24 15:52 Coding Level of Care Code Est Pt Level 4 (62639) Complex EM visit Add On G2211 Diagnoses HTN (hypertension) I10 Assessment & Plan Assessment & Plan (1) HTN (hypertension): Code(s): I10 - Essential (primary) hypertension Category: Medical Plan: History of Present Illness - The patient is a 53-year-old female presenting with anxiety and hypertension. - Anxiety: The patient reports increased anxiety levels over the past couple of weeks, characterized by a tight throat, abnormal breathing, and chest heaviness. - She is currently on sertraline and Wellbutrin, but feels the medications are no longer effective. - Hypertension: The patient mentions her blood pressure has been running high recently. - Fatty liver: Previous blood work indicated elevated liver enzymes, and an ultrasound confirmed fatty liver. - Preventative care: The patient requires a referral for a colonoscopy and endoscopy, which has not yet been scheduled. 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 - Recent job change: The patient recently started a new job after taking the summer off. Review of Systems - Psychiatric: Reports increased anxiety with symptoms of tight throat, abnormal breathing, and chest heaviness. - Cardiovascular: Reports elevated blood pressure. Physical Exam General: Cooperative and healthy appearing Nutritional Appearance: Well nourished Orientation/consciousness: Patient oriented x3 Limitations: No limitations Head: Normal to inspection General: Appearance normal, both eyes and all related structures Neck: Normal visual inspection Chest: Normal palpation of entire chest wall Respiratory: Patient reports episodes of breathing difficulties and chest heaviness associated with anxiety. ormal respiratory effort Neurology: Patient oriented x3 Results - Labs: Elevated liver enzymes noted in previous blood work. - Imaging: Ultrasound confirmed fatty liver. Plan 1. Anxiety - Review current medication regimen and consider adjusting sertraline dosage. - Monitor symptoms and consider referral to mental health specialist if no improvement. 2. Hypertension - Monitor blood pressure regularly and consider medication adjustment if necessary. 3. Fatty Liver - Order follow-up blood work to monitor liver enzyme levels. 4. Preventative Care: Colonoscopy And Endoscopy Referral - Submit referral for colonoscopy and endoscopy as requested by the patient. Discussion Notes I discussed with the patient the need to review her current medication regimen for anxiety, particularly the dosage of sertraline, and the importance of monitoring her blood pressure regularly. We also talked about the need for follow-up blood work to monitor her liver enzyme levels due to fatty liver and the submission of referrals for colonoscopy and endoscopy. Patient Instructions - Continue taking prescribed medications and monitor symptoms. - Schedule follow-up blood work at your convenience to check liver enzyme levels. - Expect a call for scheduling colonoscopy and endoscopy appointments. Medications: Refilled tizanidine 4 mg PO Q8H PRN 30 tabs 0RF muscle spasticity albuterol sulfate 90 mcg/actuation (Ventolin HFA) 2 puffs inhalation Q6H PRN 6.7 grams 0RF shortness of breath or wheezing
[2024-10-16 15:46] VITALS: BP 140/90; PULSE 82; TEMP 36.2; O2SAT 96; BMI 23.4
--- OUTSIDE RECORDS SUMMARY | 2024-10-16 16:45 | XMS_ITS | Clinical Summary ---
Author Organization [facility] Address [address] [place] [address] Phone Care Team Providers Care Lehr Operator Name Role Phone Adri Hernandez Primary Care Provider [phone] Social History Tobacco Use Types Packs/Day Years Used Date Smoking Tobacco: Never Assessed Education Answer Date Recorded Are you interested in more education? Not on jhonatan e 06/17/2022 Are you concerned about learning? Not on file 06/17/2022 No 06/17/2022 No 06/17/2022 Digital Access Answer Date Recorded No 07/16/2022 No 07/16/2022 No 07/16/2022 Reliable internet access at home? Not on file 07/16/2022 Device with a working camera? Not on file Comments Unknown Sex and Gender Information Value Date Recorded Sex Assigned at Not on file Legal Sex Female 9:43 AM EST Gender Identity Not on file Sexual Orientation Not on file Plan of Treatment Health Maintenance Due Date Last Done Comments LIPID PANEL 1972 DEPRESSION SCREENING 1984 SMOKING Hx and SMOKELESS TOB ACCO SCREENING 1985 HEPATITIS C SCREENING 1990 HIV ONE-TIME SCREENING (18-6 5 YEARS) 1990 PAP SMEAR 1993 MAMMOGRAM 2012 COLOGUARD 2017 COLONOSCOPY 2017 COLORECTAL CANCER SCREENING 2017 FIT TEST 2017 FOBT 2017 SIGMOIDOSCOPY 2017 VIRTUAL COLONOSCOPY 2017 Adult Td,Tdap Booster 11/12/2022 11/12/2012 PNEUMOCOCCAL VACCINES (50+ y ears) (1 of 1 - PCV) 2022 ZOSTER VACCINES (1 of 2) 2022 COVID-19 VACCINE (2 - 2023-2 5 season) 2023 07/02/2020 HEPATITIS A VACCINES Aged Out No long er eligible based on patient's age to complete this topic HIB VACCINES Aged Out No longer eligi ble based on patient's age to complete this topic MENINGOCOCCAL VACCINES (ACWY) Aged Out No longer eligible based on patient's age to complete this topic MENINGOCOCCAL VACCINES (B) Aged Out N o longer eligible based on patient's age to complete this topic Medical Devices Not on file Insurance [facility] PPO EPO [employer] [facility] PPO EPO [facility] [place] [address] [place] [address] PPO EPO [facility] PPO EPO [facility] PPO EPO [facility] PPO EPO [facility] PPO EPO [facility] PPO EPO Care Teams Lehr Operator Relationship Specialty Start Date End Date Adri Hernandez PA [address] [place] [address] PCP - General Family Medicine 12/25/19 Additional Source Comments The information contained in this document represents components of the legal health record. It is not the complete legal health record.[facility]
== END 2024-10-16 16:16 | disposition home or self-care (01) ==
LOC: HO.HMCH 15:32
PROVIDERS: PCP Internal Medicine; Visit Provider Internal Medicine
DX: I10 Essential (primary) hypertension (principal)

== ENCOUNTER 2024-10-23 07:46 | Outpatient (AMB) | payer OTHER, SELFPAY ==
--- OUTSIDE RECORDS SUMMARY | 2024-10-23 07:51 | XMS_ITS | Clinical Summary ---
Author Organization [facility] Address [address] [place] [address] Phone Care Team Providers Care Trail Construction Worker Name Role Phone Adri Hernandez Primary Care Provider [phone] Social History Tobacco Use Types Packs/Day Years [...] topic Medical Devices Not on file Insurance [facility] PPO EPO [employer] [facility] PPO EPO [facility] PPO [place] [address] [address] PPO EPO [facility] PPO EPO [facility] PPO EPO [facility] PPO EPO [facility] PPO EPO [facility] PPO EPO Care Teams Trail Construction Worker Relationship Specialty Start Date End Date Adri Hernandez PA [address] [place] [address] PCP - General Family Medicine 12/25/19 Additional Source Comments The information contained in this document represents components of the legal health record. It is not the complete legal health record.[facility]
--- NOTE | 2024-10-23 07:55 | A.OFFVIS_ITS ---
Vital Signs 10/23/24 07:56 Height 5 ft 8 in Weight 154 lb BMI 23.4 Intake Visit Reasons: Bilateral knee pains Intake Note: Sherry is a 53 year old female who presents with complaints of bilateral knee pains. She did undergo right knee arthroscopic surgery on 08/18/2023. She got temporary relief from that procedure. She has failed the last 3 months of conservative treatment which has included physical therapy exercises, a home exercise program, Tylenol and anti-inflammatory medicines. She has had multiple cortisone injections in the past. The most recent cortisone injection gave her minimal relief. At this point her bilateral knee pains are interfering with her activities of daily living and her ability to sleep well through the night. She wishes to hold off on further surgery if at all possible. Allergies No Known Allergies Allergy (Verified 10/23/24 07:57) Medication List - Last Reconciled 10/23/24 by Ruddy Bowden MD acetaminophen 975 mg PO Q12H PRN albuterol sulfate 90 mcg/actuation (Ventolin HFA) 2 puffs inhalation Q6H PRN bisacodyl (Dulcolax (bisacodyl)) 20 mg (4 x 5 mg) PO ONCE 1 day bupropion HCl XL 300 mg PO DAILY ibuprofen 800 mg PO Q8H PRN melatonin 5 mg PO BEDTIME montelukast (Singulair) 10 mg PO BEDTIME nicotine 1 patch transdermal Q24H nicotine 1 patch transdermal Q24H ondansetron 4 mg PO Q8H PRN pantoprazole (Protonix) 40 mg PO DAILY sertraline 100 mg PO DAILY tizanidine 4 mg PO Q8H PRN PFSH Medical History (Updated 10/23/24 @ 08:03 by Ruddy Bowden MD) Nausea and vomiting in adult Hepatic steatosis HTN (hypertension) Varicose 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 Mother No problems noted. 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 Cognitive needs: No Hearing needs: No Vision needs: Yes (rx glasses) Physical Exam Vital Signs: BMI result Body Mass Index 23.4 Const Other: Well-nourished well-developed very friendly female awake alert and oriented x3 in no acute distress Extrem Other: Bilateral knee examination shows minimal effusions, palpable crepitus with range of motion, pain with range of motion, no instability Results Reviewed Results Reviewed: X-rays of the patient's bilateral knees show joint space narrowing, subchondral sclerosis, no acute bony abnormalities Assessment & Plan Assessment & Plan (1) Osteoarthritis of left knee: Code(s): M17.12 - Unilateral primary osteoarthritis, left knee Category: Medical (2) Osteoarthritis of right knee: Code(s): M17.11 - Unilateral primary osteoarthritis, right knee Category: Medical Plan Ms. Ahuja presents with bilateral knee pains due to osteoarthritis. I had a lengthy discussion with the patient regarding the treatment options. She wishes to hold off on further surgery if at all possible. I agree with this plan. I will see if the patient's insurance company will cover a viscosupplementation injection, such as Durolane, for both of her knees, I will see her back once the injections are available. Feel free to call me at any time should questions regarding her orthopedic management arise. I spent 20 minutes in reviewing the patient's records and imaging studies, seeing the patient and documenting in the medical record. Coding Level of Care Code Est Pt Level 3 (49538) Complex EM visit Add On G2211 Diagnoses Osteoarthritis of left knee M17.12 Osteoarthritis of right knee M17.11
[2024-10-23 07:56] VITALS: BMI 23.4
== END 2024-10-23 08:01 | disposition home or self-care (01) ==
LOC: HO.HOS 07:47
PROVIDERS: PCP Internal Medicine; Visit Provider Orthopaedic Surgery
DX: M17.0 Bilateral primary osteoarthritis of knee (principal)
CPT/HCPCS: 99213; G2211

== ENCOUNTER 2024-11-26 08:39 | Outpatient (AMB) | payer OTHER, SELFPAY ==
--- NOTE | 2024-11-26 08:42 | A.OFFVIS_ITS ---
Intake Visit Reasons: Inj-B/L Knee Durolane Intake Note: Sherry is a 53 year old female who presents with complaints of bilateral knee pains. She describes her pains as sharp in nature. She has failed the last 3 months of conservative treatment which has included Tylenol, anti-inflammatory medicines, a home exercise program and physical therapy exercises. She has had cortisone injections in the past which gave her minimal relief. She has not had a viscosupplementation injection. Allergies No Known Allergies Allergy (Verified 11/26/24 08:44) Medication List - Last Reconciled 11/26/24 by Ruddy Bowden MD acetaminophen 975 mg PO Q12H PRN albuterol sulfate 90 mcg/actuation (Ventolin HFA) 2 puffs inhalation Q6H PRN alprazolam (Xanax) 0.5 mg PO BEDTIME PRN bisacodyl (Dulcolax (bisacodyl)) 20 mg (4 x 5 mg) PO ONCE 1 day bupropion HCl XL 300 mg PO DAILY ibuprofen 800 mg PO Q8H PRN melatonin 5 mg PO BEDTIME montelukast (Singulair) 10 mg PO BEDTIME nicotine 1 patch transdermal Q24H nicotine 1 patch transdermal Q24H ondansetron 4 mg PO Q8H PRN pantoprazole (Protonix) 40 mg PO DAILY sertraline 100 mg PO DAILY tizanidine 4 mg PO Q8H PRN PFSH Medical History (Updated 10/23/24 @ 08:03 by Ruddy Bowden MD) Nausea and vomiting in adult Hepatic steatosis HTN (hypertension) Varicose 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 Mother No problems noted. 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 Cognitive needs: No Hearing needs: No Vision needs: Yes (rx glasses) Physical Exam Extrem Other: Bilateral knee examination shows minimal effusions, palpable crepitus with range of motion, pain with range of motion, no instability Office Procedures AMB Joint Injection/Aspiration Joint Injection/Aspiration Primary Site: left knee Prep: site was prepped using aseptic technique Injected: 60 mg of (Durolane viscosupplementation) and 1% plain lidocaine Procedure: The patient tolerated the procedure well Coding 96182 - Large joint Procedure code (CPT) selection complete AMB Joint Injection/Aspiration Joint Injection/Aspiration Primary Site: right knee Prep: site was prepped using aseptic technique Injected: 60 mg of (Durolane viscosupplementation) and 1% plain lidocaine Procedure: The patient tolerated the procedure well Coding 86270 - Large joint Procedure code (CPT) selection complete Results Reviewed Results Reviewed: X-rays of the patient's bilateral knees taken previously show joint space narrowing, subchondral sclerosis, no acute bony abnormalities Assessment & Plan Assessment & Plan (1) Osteoarthritis of left knee: Code(s): M17.12 - Unilateral primary osteoarthritis, left knee Category: Medical (2) Osteoarthritis of right knee: Code(s): M17.11 - Unilateral primary osteoarthritis, right knee Category: Medical Plan Ms. Ahuja presents with bilateral knee pains due to osteoarthritis. The risks and benefits of bilateral knee Durolane injections were discussed at length with the patient. The patient wished to proceed. She tolerated the injections well. She will continue with her home exercise program. Will contact me prior to her follow-up appointment in 3 months should any questions or concerns arise. Feel free to call me at any time should questions regarding her orthopedic management arise. I spent 20 minutes in reviewing the patient's records and imaging studies, seeing the patient and documenting in the medical record. Orders: Orders AMB Joint Injection/Aspiration Today M17.11 - Unilateral primary osteoarthritis, right knee AMB Joint Injection/Aspiration Today M17.12 - Unilateral primary osteoarthritis, left knee Coding Level of Care Code Est Pt Level 3 (56968) Complex EM visit Add On G2211 Diagnoses Osteoarthritis of left knee M17.12 Osteoarthritis of right knee M17.11 CPT Codes Coding - 83398 Large joint: 49580 - Large joint ([id number]) Coding - 77139 Large joint: 39364 - Large joint ([id number])
--- OUTSIDE RECORDS SUMMARY | 2024-11-26 09:19 | XMS_ITS | Clinical Summary ---
Author Organization [facility] Address [address] [place] [address] Phone Care Team Providers Care Laundry Sorter Name Role Phone Adri Hernandez Primary Care Provider [phone] Social History Tobacco Use Types Packs/Day Years [...] DEPRESSION SCREENING 1984 SMOKING Hx and SMOKELESS TOBACCO SCREENING 1985 HEPATITIS C SCREENING 1990 HIV ONE-TIME SCREENING (18-65 YEARS) 1990 PAP SMEAR 1993 MAMMOGRAM 2012 COLOGUARD 2017 COLONOSCOPY 2017 COLORECTAL CANCER SCREENING 2017 FIT TEST 2017 FOBT 2017 SIGMOIDOSCOPY 2017 VIRTUAL COLONOSCOPY 2017 Adult Td,Tdap Booster 11/12/2022 11/12/2012 PNEUMOCOCCAL VACCINES (50+ years) (1 of 1 - PCV) 2022 ZOSTER VACCINES (1 of 2) 2022 INFLUENZA VACCINE (#1) 2024 , 10/25/2017, 10/21/2014, Additional history exists COVID-19 VACCINE ( season) 2024 07/02/2020 HEPATITIS A VACCINES Aged Out No [...] file Insurance [facility] PPO EPO [facility] PPO EPO [employer] [facility] PPO EPO [facility] PPO EPO [facility] PPO EPO [employer] [facility] PPO [facility]PO [facility] PPO EPO [facility] PPO EPO [facility] PPO EPO Care Teams Laundry Sorter Relationship Specialty Start Date End Date Adri Hernandez PA [address] [place] [id number] PCP - General Family Medicine 12/25/19 Additional Source Comments The information contained in this document represents components of the legal health record. It is not the complete legal health record.[facility]
== END 2024-11-26 08:59 | disposition home or self-care (01) ==
LOC: HO.HOS 08:40
PROVIDERS: PCP Internal Medicine; Visit Provider Orthopaedic Surgery
DX: M17.0 Bilateral primary osteoarthritis of knee (principal)
CPT/HCPCS: 20610; 99213

== ENCOUNTER → 2024-11-26 08:39 | Outpatient (BNVA) | payer OTHER, SELFPAY | PROVIDERS: PCP Internal Medicine; Visit Provider Orthopaedic Surgery | DX: M17.0 Bilateral primary osteoarthritis of knee (principal) | CPT/HCPCS: 20610; J2003; J7318 ==

== ENCOUNTER 2024-12-25 15:45 | Outpatient (AMB) | payer OTHER, SELFPAY ==
[2024-12-25 15:40] VITALS: BP 136/90; PULSE 86; RESP 16; TEMP 36.2; O2SAT 96; BMI 23.7
--- NOTE | 2024-12-25 15:40 | A.OFFPC_ITS ---
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 Required: No Accompanied by: Self / Same As Patient Allergies No Known Allergies Allergy (Verified 12/25/24 15:40) Medication List - Last Reconciled 12/25/24 by KAY Costa acetaminophen 975 mg PO Q12H PRN albuterol sulfate 90 mcg/actuation (Ventolin HFA) 2 puffs inhalation Q6H PRN alprazolam (Xanax) 0.5 mg PO BEDTIME PRN bisacodyl (Dulcolax (bisacodyl)) 20 mg (4 x 5 mg) PO ONCE 1 day bupropion HCl XL 300 mg PO DAILY fluoxetine 10 mg PO DAILY ibuprofen 800 mg PO Q8H PRN melatonin 5 mg PO BEDTIME montelukast (Singulair) 10 mg PO BEDTIME ondansetron 4 mg PO Q8H PRN Tobacco use date assessed: 12/25/24 Dental Screening Dental Screen Date: 12/25/24 Did you have a dental visit in the last 12 months?: Yes Did you have a dental problem in the last 6 months where you did not have access to dental care?: No Was dental information given to patient?: Patient has dentist HPI HPI Comments History of Present Illness Details 54-year-old female with history of hyper tension, asthma, hepatic steatosis, osteoarthritis, varicose veins, depression, peripheral artery disease, cigarette smoking presenting to the office today for management of chronic conditions/follow-up. Last seen by prior PCP in 05/2024 Hypertension-initial blood pressure in the office 136/90, recheck 140/96. Not currently on antihypertensives there has been hypertensive dating back to last year. Depression-on bupropion 300 mg XL, sertraline 100 mg daily. Going through menopause, worsening symptoms. Very emotional. Using 0.5 mg Xanax at bedtime as needed. No longer with a therapist. Suspect symptoms may be complicated by menopause and has upcoming appointment with assisted living associate to further discuss. OA knees-following with Orthopedic surgery. gel shots bl helping depending on day. ibuprofen 2 tylenol which also helps varicose veins-s/p bilateral microphlebectomy. Last seen in vascular surgery 06/2023. Given significant improvement in symptoms, PRN follow-up was advised. Recommended conservative measures including compression, leg elevation, exercise. Hepatic steatosis-significantly elevated liver enzymes during hospitalization several months ago. She had consumed large amount of alcohol and developed nausea and vomiting and presented to the ED. Total bilirubin was 3.3, direct bilirubin 0.6, AST 39, ALT 32, alk phos 155. Abdominal ultrasound revealed hepatic steatosis. She had been consuming 3-4 vodka sodas several days weekly hemostasis after that visit has not consumed any alcohol. She was also started on pantoprazole but has since discontinued this without any significant reflux symptoms. She does have upcoming appointment with gastroenterology for endoscopy and colonoscopy Cigarette smoking-previously smoking 1/2 pack per day, now down to 2 cigarettes daily. She has quit for extended periods in the past. Concerns: None other than above Health maintenance: Last screening mammogram 05/2024 without evidence of malignancy. One year follow-up Last Pap 03/2023 with 5 year follow-up. Follows with [facility] assisted living associate Colonoscopy has been scheduled ROS: see hpi EXAM: Constitutional - Awake and Alert, No apparent distress Eyes - PERRL Cardiovascular - S1S2, RRR, No edema Respiratory - Normal lung expansion, Normal respiratory effort, No respiratory distress, CTA bilaterally Extremities - no calf tenderness bilaterally, no swelling Skin - Warm/Dry Neurological - Alert & oriented x3 Psychological - Appropriate affect [facility] Medical History Nausea and vomiting in adult Hepatic steatosis HTN (hypertension) Varicose 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 Mother No problems noted. 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 1. Little interest or pleasure in doing things: not at all 2. Feeling down, depressed, or hopeless: not at all 3. Trouble falling or staying asleep, or sleeping too much: not at all 4. Feeling tired or having little energy: not at all 5. Poor appetite or overeating: not at all 6. Feeling bad about yourself - or that you are a failure or have let yourself or your family down: not at all 7. Trouble concentrating on things, such as reading the newspaper or watching television: not at all 8. Moving or speaking so slowly that other people could have noticed. Or the opposite - being so fidgety or restless that you have been moving around a lot more than usual: not at all 9. Thoughts that you would be better off or of hurting yourself in some way: not at all Total score: 0 Source: Developed by Drs. Sony Foy, Serena Ramsay, Josue Leon and colleagues, with an educational juan ramon from [employer]. Thrive Questionnaire Date Thrive assessed: 08/30/24 I am a: Patient What is your living situation today?: I have a steady place to live Within the past 12 months, did the food you bought not last and you didn't have the money to get more?: Never true Within the past 12 months, did you worry whether your food would run out before you got money to buy more?: Never true Do you have trouble paying for medicines?: No Do you have trouble getting transportation to medical appointments?: No Do you have trouble paying your heating and electricity bill?: No Do you have trouble taking care of your child, family member or friend?: No Do you have trouble with day-to-day activities such as bathing, preparing meals, shopping, managing finances, etc.?: No Are you currently unemployed and looking for a job?: Yes Are you interested in more education?: Yes Please select the resources that you would like help with: None THRIVE Score: 0 AUDIT C Alcohol Use Questionnaire (AUDIT-C) 1. How often do you have a drink containing alcohol?: 2-3 times a week 2. How many drinks containing alcohol do you have on a typical day when you are drinking?: 1 or 2 3. How often do you have six or more drinks on one occasion?: Never Total Score: 3 ROBIN-7 AMB Questionnaire ROBIN-7 Date ROBIN - 7 assessed: 12/25/24 Feeling nervous, anxious, or on edge: 0 = Not at all Not being able to stop or control worryin = Not at all Worrying too much about different things: 0 = Not at all Trouble relaxin = Not at all Being so restless that it is hard to sit still: 0 = Not at all Becoming easily annoyed or irritable: 0 = Not at all Feeling afraid as if something awful might happen: 0 = Not at all Total ROBIN-7 score (0-4 normal; 5-9 mild; 10-14 moderate; 15-21 severe): 0 Source: Developed by Drs. Sony Foy, Serena Ramsay, Josue Leon and colleagues, with an educational juan ramon from [employer]. Physical exam (Primary Care) Vital Signs: Last Vital Signs Temp 97.1 F 12/25/24 15:40 Pulse 86 12/25/24 15:40 Resp 16 12/25/24 15:40 BP 136/90 H 12/25/24 15:40 Pulse Ox 96 12/25/24 15:40 Oxygen Delivery Method Room Air 12/25/24 15:40 BMI result Body Mass Index 23.7 Tobacco/Smoking Status: Tobacco use Status Tobacco use date assessed 12/25/24 12/25/24 15:42 Patient Tobacco Use Status Current someday Tobacco 12/25/24 15:42 Tobacco use type Cigarette 12/25/24 15:42 e-Cigarette/Vaping Use Former Use 12/25/24 15:42 PHQ-9: PHQ-9 Score PHQ-9: Total score 0 12/25/24 16:08 Thrive Assessment: Date of Thrive Assessment Date Thrive assessed 08/30/24 12/25/24 15:42 Coding Level of Care Code Est Pt Level 4 (62164) Complex EM visit Add On G2211 Diagnoses Depression F32.A HTN (hypertension) I10 Hepatic steatosis K76.0 Mild asthma with allergic rhinitis J45.909 Tobacco use disorder F17.200 Assessment & Plan Assessment & Plan (1) Depression: Code(s): F32.A - Depression, unspecified Category: Medical Plan: Complicated by hormonal fluctuation from menopause. Discontinue sertraline. Initial prozac 40mg daily. Continue wellbutrin. Continue prn xanax for sleep. Positive coping mechanisms (2) HTN (hypertension): Code(s): I10 - Essential (primary) hypertension Category: Medical Plan: Uncontrolled. Add losartan 25 mg daily. Counseled on dosing and side effects. Follow-up in 1 month for BP check (3) Hepatic steatosis: Code(s): K76.0 - Fatty (change of) liver, not elsewhere classified Category: Medical Plan: Repeat liver panel ordered. Continue avoidance of hepatotoxins (4) Mild asthma with allergic rhinitis: Code(s): J45.909 - Unspecified asthma, uncomplicated Category: Medical Plan: Stable. Continue with maintenance medications, albuterol PRN (5) Tobacco use disorder: Code(s): F17.200 - Nicotine dependence, unspecified, uncomplicated Category: Medical Plan: Congratulated on cessation efforts thus far. She is interested in lung cancer screening and is referred Plan Follow-up in office in 1 month, labs as ordered below Orders: Orders Hemoglobin A1c Today F32.4 - Major depressive disorder, single episode, in partial remission, I10 - Essential (primary) hypertension, J45.909 - Unspecified asthma, uncomplicated, K76.0 - Fatty (change of) liver, not elsewhere classified, Z13.1 - Encounter for screening for diabetes mellitus Lipid Panel Today F32.4 - Major depressive disorder, single episode, in partial remission, I10 - Essential (primary) hypertension, J45.909 - Unspecified asthma, uncomplicated, K76.0 - Fatty (change of) liver, not elsewhere classified, Z13.1 - Encounter for screening for diabetes mellitus Vitamin D 25-OH Total Today F32.4 - Major depressive disorder, single episode, in partial remission, I10 - Essential (primary) hypertension, J45.909 - Unspecified asthma, uncomplicated, K76.0 - Fatty (change of) liver, not elsewhere classified, Z13.1 - Encounter for screening for diabetes mellitus Basic Metabolic Panel Today F32.4 - Major depressive disorder, single episode, in partial remission, I10 - Essential (primary) hypertension, J45.909 - Unspecified asthma, uncomplicated, K76.0 - Fatty (change of) liver, not elsewhere classified, Z13.1 - Encounter for screening for diabetes mellitus Complete Blood Count Auto Diff Today F32.4 - Major depressive disorder, single episode, in partial remission, I10 - Essential (primary) hypertension, J45.909 - Unspecified asthma, uncomplicated, K76.0 - Fatty (change of) liver, not else where classified, Z13.1 - Encounter for screening for diabetes mellitus Liver Panel Today F32.4 - Major depressive disorder, single episode, in partial remission, I10 - Essential (primary) hypertension, J45.909 - Unspecified asthma, uncomplicated, K76.0 - Fatty (change of) liver, not elsewhere classified, Z13.1 - Encounter for screening for diabetes mellitus Referrals Lung Cancer Screening Referral F17.200 - Nicotine dependence, unspecified, uncomplicated Medications: New losartan 25 mg PO DAILY 90 tabs 1RF fluoxetine 40 mg PO DAILY 90 caps 1RF Discontinued sertraline Discontinued Reason: Doctor's Order 100 mg PO DAILY 90 tabs 1RF Patient Instructions: Black Cohosh
[2024-12-25 17:11] VITALS: BP 148/96
--- OUTSIDE RECORDS SUMMARY | 2024-12-25 18:31 | XMS_ITS | Clinical Summary ---
Author Organization [facility] Address [address] [place] [id number] Phone Care Team Providers Care Electronic Sensing Equipment Assembler Name Role Phone Adri Hernandez Primary Care Provider [phone] Social History Tobacco Use Types Packs/Day Years [...] 10/25/2017, 10/21/2014, Additional history exists COVID-19 VACCINE (2 - 2024- season) 2024 07/02/2020 RSV VACCINE (1 - 1-dose 75+ series) 11/28/2047 HEPATITIS A VACCINES Aged Out No long [...] topic Medical Devices Not on file [place] [place] [address] PPO EPO [facility] PPO [facility]PO [facility] PPO [facility]PO [facility] PPO [facility]PO [facility] PPO EPO [facility] PPO [facility]PO [facility] PPO EPO [facility] PPO EPO [facility] PPO EPO Care Teams Electronic Sensing Equipment Assembler Relationship Specialty Start Date End Date Adri Hernandez PA [address] [place] [address] PCP - General Family Medicine 12/25/19 Additional Source Comments The information contained in this document represents components of the legal health record. It is not the complete legal health record.[facility]
== END 2024-12-25 16:38 | disposition home or self-care (01) ==
LOC: HO.HMCHD 15:46
PROVIDERS: PCP Internal Medicine; Visit Provider Physician Assistant
DX: F32.A Depression, unspecified (principal); I10 Essential (primary) hypertension; K76.0 Fatty (change of) liver, not elsewhere classified; J45.909 Unspecified asthma, uncomplicated; F17.200 Nicotine dependence, unspecified, uncomplicated

== ENCOUNTER 2025-01-29 15:52 | Outpatient (AMB) | payer OTHER, SELFPAY ==
--- NOTE | 2025-01-29 15:55 | A.OFFPC_ITS ---
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 Required: No Accompanied by: Self / Same As Patient Allergies No Known Allergies Allergy (Verified 01/29/25 15:55) Medication List - Last Reconciled 01/29/25 by KAY Costa acetaminophen 975 mg PO Q12H PRN albuterol sulfate 90 mcg/actuation (Ventolin HFA) 2 puffs inhalation Q6H PRN alprazolam (Xanax) 0.5 mg PO BEDTIME PRN bisacodyl (Dulcolax (bisacodyl)) 20 mg (4 x 5 mg) PO ONCE 1 day bupropion HCl XL 300 mg PO DAILY estradiol 1 patch transdermal 2XW fluoxetine 40 mg PO DAILY ibuprofen 800 mg PO Q8H PRN losartan 25 mg PO DAILY melatonin 5 mg PO BEDTIME montelukast (Singulair) 10 mg PO BEDTIME ondansetron 4 mg PO Q8H PRN [Underdesk elliptical Use at least 3 hours per day; ] Tobacco use date assessed: 12/25/24 Dental Screening Dental Screen Date: 12/25/24 HPI HPI Comments History of Present Illness Details 54-year-old female with history of hyper tension, asthma, hepatic steatosis, osteoarthritis, varicose veins, depression, peripheral artery disease, cigarette smoking presenting to the office today for blood pressure recheck Hypertension-blood pressure is elevated at last visit. Losartan 25 mg daily was started, but she has not been remembering to take her medication. She did not take this this morning. Initial blood pressure 182/100, recheck 146/90. ROS: General: No fevers, malaise, unintentional weight loss HEENT: No blurred vision, diplopia. No sore throat, nasal congestion, rhinorrhea, sinus pain, ear pain Cardiovascular: No chest pain, palpitations, or leg edema Respiratory: No shortness of breath, wheezing, cough GI: No abdominal pain, nausea, vomiting, diarrhea, constipation, melena, hematochezia : No dysuria, hematuria, increased urinary frequency, decreased urinary output MSK: No myalgia, back pain Neuro: No headaches, weakness, paresthesias Skin: No rashes or lesions EXAM: Constitutional - Awake and Alert, No apparent distress Eyes - PERRL Cardiovascular - S1S2, RRR, No edema Respiratory - Normal lung expansion, Normal respiratory effort, No respiratory distress, CTA bilaterally Extremities - no calf tenderness bilaterally, no swelling Skin - Warm/Dry Neurological - Alert & oriented x3 Psychological - Appropriate affect [facility] Medical History Nausea and vomiting in adult Hepatic steatosis HTN (hypertension) Varicose 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 Mother No problems noted. 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 Cognitive needs: No Hearing needs: No Vision needs: Yes (rx glasses) Questionnaire Thrive Questionnaire Date Thrive assessed: 08/30/24 I am a: Patient What is your living situation today?: I have a steady place to live Within the past 12 months, did the food you bought not last and you didn't have the money to get more?: Never true Within the past 12 months, did you worry whether your food would run out before you got money to buy more?: Never true Do you have trouble paying for medicines?: No Do you have trouble getting transportation to medical appointments?: No Do you have trouble paying your heating and electricity bill?: No Do you have trouble taking care of your child, family member or friend?: No Do you have trouble with day-to-day activities such as bathing, preparing meals, shopping, managing finances, etc.?: No Are you currently unemployed and looking for a job?: Yes Are you interested in more education?: Yes Please select the resources that you would like help with: None THRIVE Score: 0 ROBIN-7 AMB Questionnaire ROBIN-7 Date ROBIN - 7 assessed: 12/25/24 Source: Developed by Drs. Soyn Foy, Serena Ramsay, Josue Leon and colleagues, with an educational juan ramon from [employer]. Physical exam (Primary Care) Vital Signs: Last Vital Signs Temp 97.5 F 01/29/25 15:59 Pulse 76 01/29/25 15:59 BP 146/90 H 01/29/25 16:16 BMI result Body Mass Index 23.6 Tobacco/Smoking Status: Tobacco use Status Tobacco use date assessed 12/25/24 01/29/25 16:03 Patient Tobacco Use Status Current someday Tobacco 01/29/25 16:03 Tobacco use type Cigarette 01/29/25 16:03 e-Cigarette/Vaping Use Former Use 01/29/25 16:03 Thrive Assessment: Date of Thrive Assessment Date Thrive assessed 08/30/24 01/29/25 16:03 Coding Level of Care Code Est Pt Level 3 (36215) Diagnoses HTN (hypertension) I10 Tobacco use disorder F17.200 Assessment & Plan Assessment & Plan (1) HTN (hypertension): Code(s): I10 - Essential (primary) hypertension Category: Medical Plan: Discussed the importance of medication compliance. Discussed ways to help remember to take her medications. She will continue on losartan 25 mg daily. Check blood pressures at home and reach out to the office with blood pressure readings next week. Low-sodium diet. (2) Tobacco use disorder: Code(s): F17.200 - Nicotine dependence, unspecified, uncomplicated Category: Medical Plan: Congratulated on cessation efforts thus far. She will continue working on smoking cessation Plan Reach out to the office with blood pressure readings. Medications: New [Underdesk elliptical] Use at least 3 hours per day; 1 units 0RF M17.11 - Unilateral primary osteoarthritis, right knee, M17.12 - Unilateral primary osteoarthritis, left knee
[2025-01-29 15:59] VITALS: BP 182/100; PULSE 76; TEMP 36.4; BMI 23.6
[2025-01-29 16:16] VITALS: BP 146/90
== END 2025-01-29 16:22 | disposition home or self-care (01) ==
LOC: HO.HMCHD 15:53
PROVIDERS: PCP Internal Medicine; Visit Provider Physician Assistant
DX: I10 Essential (primary) hypertension (principal); F17.200 Nicotine dependence, unspecified, uncomplicated